=== PATIENT | male | born 1970 | race American Indian/Alaskan Native ===

== ENCOUNTER 2017-02-27 02:01 | Emergency (ER) | payer SELFPAY ==
[2017-02-27 02:10] VITALS: BP 125/66
[2017-02-27] MEDS ORDERED: Cyclobenzaprine 10 MG Tab PO ONE ×2 (02:40→04:21)
[2017-02-27] MEDS ORDERED: Acetaminophen/oxyCODONE 325-5 MG Tab PO ONE (02:40)
--- NOTE | 2017-02-27 03:39 | EDM.PDOC ---
ED HPI GENERAL MEDICAL PROBLEM - General Chief Complaint: Back Pain or Injury Stated Complaint: PULLED BACK Time Seen by Provider: 02/27/17 02:30 Source of Information: Reports: Patient History Limitations: Reports: No Limitations - History of Present Illness INITIAL COMMENTS - FREE TEXT/NARRATIVE: c/o severe low back pain after lifting 100# table around 8pm, felt something pop in lower back and noted swollen area on left lower back above waist line. No numbness or tingling, no incontinence. Pain moderate 4-5/10 at rest 10 with movement. Arrival ambulatory supported by family member. No prior back issues. Onset: Today - Related Data Allergies Allergy/AdvReac Type Severity Reaction Status Date / Time Penicillins Allergy Shortness Verified 02/27/17 02:06 of Breath pseudoephedrine Allergy Swelling Verified 02/27/17 02:06 insulin detemir AdvReac Nausea Verified 02/27/17 02:06 [From Levemir] Home Meds: Home Meds Aspirin 81 mg PO DAILY 05/06/14 [History] Insulin Aspart [Novolog Flexpen] 38 units SQ TIDAC 05/06/14 [History] Insulin Glarg,Human.Rec.Analog [Lantus Solostar] 64 units SQ DAILY 05/06/14 [ History] metFORMIN [Glucophage] 1,000 mg PO BIDMEALS 05/06/14 [History] Fluticasone Propionate [Flonase] 1 spray NASBOTH ASDIRECTED PRN 06/08/14 [ History] Lisinopril [Prinivil] 20 mg PO DAILY 06/08/14 [History] Nitroglycerin 1 tab SL ASDIRECTED PRN 06/08/14 [History] Simvastatin [Zocor] 40 mg PO BEDTIME 06/08/14 [History] Levalbuterol Tartrate [Xopenex HFA] 2 puff INH ASDIRECTED PRN 01/15/15 [History] Hydrocortisone Acetate [Anusol-Hc] 1 supp RECTAL BID PRN 01/11/16 [History] Ipratropium [Atrovent] 1 vial INH Q4H PRN 01/11/16 [History] LORazepam [Ativan] 0.5 mg PO ASDIRECTED 01/11/16 [History] Montelukast Sodium [Singulair] 10 mg PO DAILY 01/11/16 [History] Multivitamin with Minerals [Multiple Vitamin] 1 tab PO DAILY 01/11/16 [History] Pantoprazole [Protonix] 40 mg PO DAILY 01/11/16 [History] Sildenafil Citrate [Viagra] 50 mg PO ASDIRECTED 01/11/16 [History] Albuterol/Ipratropium [Combivent Respimat] 1 puff INH DAILY 01/13/16 [History] Past Medical History - Past Health History Medical/Surgical History: Denies Medical/Surgical History HEENT History: Reports: Impaired Vision, Other (See Below) Other HEENT History: WEARS CORRECTIVE LENSES Cardiovascular History: Reports: CAD, Hypertension, [place] Respiratory History: Reports: Asthma Other Respiratory History: PFT COMPLETED Gastrointestinal History: Reports: GI Bleed Genitourinary History: Reports: None Musculoskeletal History: Reports: None Other Musculoskeletal History: RIGHT CLAVICLE Neurological History: Reports: None, Other (See Below) Other Neuro History: TRIGEMINAL NEURALGIA Psychiatric History: Reports: Anxiety Endocrine/Metabolic History: Reports: Diabetes, Type II Hematologic History: Reports: Iron Deficiency Immunologic History: Reports: None Oncologic (Cancer) History: Reports: None Dermatologic History: Reports: None - Infectious Disease History Infectious Disease History: Reports: Chicken Pox, MRSA Other Infectious Disease History: ROTO VIRUS - Past Surgical History Head Surgeries/Procedures: Reports: None HEENT Surgical History: Reports: Myringotomy w Tube(s), Tonsillectomy Respiratory Surgical History: Reports: None Male Surgical History: Reports: None Musculoskeletal Surgical History: Reports: Arthroscopic Knee, Shoulder Surgery, Other (See Below) Other Musculoskeletal Surgeries/Procedures:: Torn ACL Oncologic Surgical History: Reports: None Dermatological Surgical History: Reports: None Social & Family History - Tobacco Use Smoking Status *Q: Never Smoker Years of Tobacco use: 1 Second Hand Smoke Exposure: Yes - Alcohol Use Days Per Week of Alcohol Use: 0 - Recreational Drug Use Recreational Drug Use: No Drug Use in Last 12 Months: No - Living Situation & Occupation Living situation: Reports: with Family Occupation: Employed ED ROS GENERAL - Review of Systems Review Of Systems: ROS reveals no pertinent complaints other than HPI. ED EXAM,LOWER BACK PAIN/INJURY - Physical Exam Exam: See Below Exam Limited By: No Limitations General Appearance: Alert, Moderate Distress Ears: Normal External Exam Nose: Normal Inspection Throat/Mouth: Normal Inspection Head: Atraumatic, Normocephalic Neck: Normal Inspection Respiratory/Chest: No Respiratory Distress, Lungs Clear Cardiovascular: Regular Rate, Rhythm GI/Abdominal: Soft Extremities: No: Leg Pain Neurological: Alert, Normal Mood/Affect, Withdraws to Pain. No: Normal Plantar Flexion (pain left), Normal Gait, Straight Leg Raise (L), Saddle Anesthesia Psychiatric: Normal Affect Skin Exam: Warm, Dry, Intact, Ecchymosis (5cm slightly raised circluar area low lumbar lateral to spine greenish disoloration to distal border, mild redness no warmth. ) Course - Vital Signs Last Recorded V/S: Last Vital Signs Temp 98.1 F 02/27/17 02:06 Pulse 69 02/27/17 02:06 Resp 16 02/27/17 02:06 BP 125/66 02/27/17 02:06 Pulse Ox 96 02/27/17 02:06 - Orders/Labs/Meds Orders: Active Orders 24 hr Category Date Time Status Lumbar Spine wo Cont [CT] Urgent Exams 02/27/17 03:13 Taken Meds: Medications Discontinued Medications Generic Name Dose Route Start Last Admin Trade Name Freq PRN Reason Stop Dose Admin Cyclobenzaprine HCl 10 mg 02/27/17 02:40 02/27/17 02:50 Flexeril PO 02/27/17 02:41 10 mg ONETIME ONE Administration Oxycodone/Acetaminophen 1 tab 02/27/17 02:40 02/27/17 02:50 Percocet 325-5 Mg PO 02/27/17 02:41 1 tab ONETIME ONE Administration - Radiology Interpretation Free Text/Narrative:: Multilevel degenerative disc disease L3-S1 no acute fracture or dislocation - Re-Assessments/Exams Free Text/Narrative Re-Assessment/Exam: 02/27/17 03:39 pain improved at rest decreased to 8/10 with movement. Able to stand independently movments guarded. 02/27/17 04:26 CT results reviewed with patient. Pain slightly improved not completely resolved but tolerable. Departure - Departure Time of Disposition: 04:27 Disposition: Home, Self-Care 01 Condition: Fair Clinical Impression: Back pain Qualifiers: Back pain location: low back pain Chronicity: acute Back pain laterality: left Sciatica presence: without sciatica Qualified Code(s): M54.5 - Low back pain - Discharge Information Instructions: Back Pain, Adult, [id number] Forms: ED Department Discharge Additional Instructions: rest flexeril 10mg every 8 hours as needed for muscle spasm hydrocodone 10/325 oen every 6 hours as needed for pain #10 Ibuprofen 600mg or tylenol 650mg every 6 hours as needed for mild to moderate pain ice to low back follow up in clinic or Saturday with PCP> - My Orders Last 24 Hours: My Active Orders 02/27/17 03:13 Lumbar Spine wo Cont [CT] Urgent - Assessment/Plan Last 24 Hours: My Active Orders 02/27/17 03:13 Lumbar Spine wo Cont [CT] Urgent
[2017-02-27] MEDS ORDERED: Acetaminophen/HYDROcodone 325-10 MG Tab ONE (04:21)
[2017-02-27] MEDS ORDERED: Acetaminophen/HYDROcodone 325-10 MG Tab PO ONE (04:21)
[2017-02-27] MEDS ORDERED: Cyclobenzaprine 10 MG Tab ONE (04:21)
== END 2017-02-27 04:33 | disposition home or self-care (01) ==
LOC: DL.ED 02:01
DX: M54.5 Low back pain (principal); H54.7 Unspecified visual loss; I25.10 Atherosclerotic heart disease of native coronary artery without angina pectoris; I25.2 Old myocardial infarction; J45.909 Unspecified asthma, uncomplicated; I10 Essential (primary) hypertension; E11.9 Type 2 diabetes mellitus without complications; Z79.4 Long term (current) use of insulin; Z96.22 Myringotomy tube(s) status; Z88.0 Allergy status to penicillin; Z88.8 Allergy status to other drugs, medicaments and biological substances; Z79.82 Long term (current) use of aspirin; Z79.84 Long term (current) use of oral hypoglycemic drugs; Z98.890 Other specified postprocedural states
CPT/HCPCS: 72131; 99283; A9270

== ENCOUNTER 2017-07-09 21:16 | Emergency (ER) | payer MEDICAID, OTHER ==
[2017-07-09 21:23] VITALS: BP 125/75
[2017-07-09] MEDS ORDERED: Azithromycin 250 MG Tab PO ONE (22:09)
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
== END 2017-07-09 22:21 | disposition home or self-care (01) ==
LOC: DL.ED 21:16
DX: J40 Bronchitis, not specified as acute or chronic (principal); Z79.82 Long term (current) use of aspirin; Z79.84 Long term (current) use of oral hypoglycemic drugs; Z79.899 Other long term (current) drug therapy; Z88.0 Allergy status to penicillin
CPT/HCPCS: 99284; A9270

== ENCOUNTER 2017-10-31 23:01 | Emergency (ER) | payer MEDICAID, OTHER ==
[2017-10-31] MEDS ORDERED: Doxycycline 100 MG Cap PO ONE (23:24)
[2017-10-31] MEDS ORDERED: predniSONE 20 MG Tab PO ONE (23:24)
[2017-10-31] MEDS ORDERED: Albuterol/Ipratropium 3.0-0.5 MG/3 ML Neb Soln NEB ONE (23:28)
--- NOTE | 2017-10-31 23:49 | EDM.PDOC ---
ED HPI GENERAL MEDICAL PROBLEM - General Chief Complaint: Respiratory Problem Stated Complaint: BRONCHITIS [id number] Time Seen by Provider: 10/31/17 23:20 Source of Information: Reports: Patient History Limitations: Reports: No Limitations - History of Present Illness INITIAL COMMENTS - FREE TEXT/NARRATIVE: C/O cough ,congestion for one week, has had bronchitis number of times and feels the same. Wheezing. Has nebulizer at home. 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 Left Ear Pain Score (Numeric/FACES): 3 - Related Data Allergies Allergy/AdvReac Type Severity Reaction Status Date / Time Penicillins Allergy Shortness Verified 10/31/17 23:14 of Breath pseudoephedrine Allergy Swelling Verified 10/31/17 23:14 insulin detemir AdvReac Nausea Verified 10/31/17 23:14 [From Levemir] Home Meds: Home Meds Aspirin 81 mg PO DAILY 05/06/14 [History] Insulin Aspart [Novolog Flexpen] 38 units SQ TIDAC 05/06/14 [History] Insulin Glarg,Human.Rec.Analog [Lantus Solostar] 64 units SQ DAILY 05/06/14 [ History] metFORMIN [Glucophage] 500 mg PO BIDMEALS 05/06/14 [History] Fluticasone Propionate [Flonase] 1 spray NASBOTH DAILY 06/08/14 [History] Lisinopril [Prinivil] 20 mg PO DAILY 06/08/14 [History] Nitroglycerin 1 tab SL ASDIRECTED PRN 06/08/14 [History] Simvastatin [Zocor] 40 mg PO BEDTIME 06/08/14 [History] Levalbuterol Tartrate [Xopenex HFA] 2 puff INH ASDIRECTED PRN 01/15/15 [History] Hydrocortisone Acetate [Anusol-Hc] 1 supp RECTAL BID PRN 01/11/16 [History] Ipratropium [Atrovent] 1 vial INH Q4H PRN 01/11/16 [History] LORazepam [Ativan] 0.5 mg PO ASDIRECTED 01/11/16 [History] Montelukast Sodium [Singulair] 10 mg PO DAILY 01/11/16 [History] Multivitamin with Minerals [Multiple Vitamin] 1 tab PO DAILY 01/11/16 [History] Pantoprazole [Protonix] 40 mg PO DAILY 01/11/16 [History] Albuterol/Ipratropium [Combivent Respimat] 1 puff INH DAILY 01/13/16 [History] Past Medical History - Past Health History Medical/Surgical History: Denies Medical/Surgical History HEENT History: Reports: Impaired Vision, Other (See Below) Other HEENT History: WEARS CORRECTIVE LENSES Cardiovascular History: Reports: CAD, Hypertension, [place] Respiratory History: Reports: Asthma Other Respiratory History: PFT COMPLETED Gastrointestinal History: Reports: GI Bleed, Hemorrhoids Genitourinary History: Reports: None Musculoskeletal History: Reports: None Other Musculoskeletal History: RIGHT CLAVICLE Neurological History: Reports: Other (See Below) Other Neuro History: TRIGEMINAL NEURALGIA Psychiatric History: Reports: Anxiety Endocrine/Metabolic History: Reports: Diabetes, Type II Hematologic History: Reports: Iron Deficiency Immunologic History: Reports: None Oncologic (Cancer) History: Reports: None Dermatologic History: Reports: None - Infectious Disease History Infectious Disease History: Reports: Chicken Pox, MRSA Other Infectious Disease History: ROTO VIRUS - Past Surgical History Head Surgeries/Procedures: Reports: None HEENT Surgical History: Reports: Myringotomy w Tube(s), Tonsillectomy Respiratory Surgical History: Reports: None Male Surgical History: Reports: None Musculoskeletal Surgical History: Reports: Arthroscopic Knee, Shoulder Surgery, Other (See Below) Other Musculoskeletal Surgeries/Procedures:: Torn ACL Oncologic Surgical History: Reports: None Dermatological Surgical History: Reports: None Social & Family History - Tobacco Use Smoking Status *Q: Never Smoker Years of Tobacco use: 1 Second Hand Smoke Exposure: No - Caffeine Use Caffeine Use: Reports: Soda - Alcohol Use Days Per Week of Alcohol Use: 0 - Recreational Drug Use Recreational Drug Use: No Drug Use in Last 12 Months: No - Living Situation & Occupation Living situation: Reports: with Family Occupation: Employed ED ROS GENERAL - Review of Systems Review Of Systems: See Below Constitutional: Reports: Fever HEENT: Reports: Sinus Problem Respiratory: Reports: Shortness of Breath, Wheezing, Cough, Sputum Cardiovascular: Reports: No Symptoms Endocrine: Reports: High Glucose GI/Abdominal: Reports: No Symptoms : Reports: No Symptoms Musculoskeletal: Reports: No Symptoms Skin: Reports: No Symptoms Neurological: Reports: No Symptoms ED EXAM, GENERAL - Physical Exam Exam: See Below Exam Limited By: No Limitations General Appearance: Alert, Mild Distress Eye Exam: Bilateral Eye: EOMI Ears: Normal External Exam Nose: Normal Inspection, Nasal Drainage (yellow) Throat/Mouth: Normal Inspection Head: Atraumatic, Normocephalic Neck: Normal Inspection Respiratory/Chest: No Respiratory Distress (wheezing bilateral anterior posterior) Cardiovascular: Normal Peripheral Pulses, Regular Rate, Rhythm GI/Abdominal: Normal Bowel Sounds Neurological: Alert, Oriented Skin Exam: Warm, Dry, Intact, Normal Color Course - Vital Signs Last Recorded V/S: Last Vital Signs Temp 98.6 F 10/31/17 23:07 Pulse 85 10/31/17 23:57 Resp 16 10/31/17 23:57 BP 133/64 10/31/17 23:57 Pulse Ox 95 10/31/17 23:57 - Orders/Labs/Meds Meds: Medications Discontinued Medications Generic Name Dose Route Start Last Admin Trade Name Valerio PRN Reason Stop Dose Admin Albuterol/Ipratropium 3 ml 10/31/17 23:28 10/31/17 23:33 Duoneb 3.0-0.5 Mg/3 Ml NEB 10/31/17 23:29 3 ml ONETIME ONE Administration Doxycycline Hyclate 100 mg 10/31/17 23:24 10/31/17 23:32 Vibramycin PO 10/31/17 23:25 100 mg ONETIME ONE Administration Prednisone 40 mg 10/31/17 23:24 10/31/17 23:32 Prednisone PO 10/31/17 23:25 40 mg ONETIME ONE Administration - Radiology Interpretation Free Text/Narrative:: CXR no acute findings - Re-Assessments/Exams Free Text/Narrative Re-Assessment/Exam: 11/04/17 06:07 Improved exchange following nebulizer treatment. Departure - Departure Time of Disposition: 23:49 Disposition: Home, Self-Care 01 Condition: Good Clinical Impression: Bronchitis Sinusitis Qualifiers: Sinusitis location: frontal Chronicity: acute Recurrence: non-recurrent Qualified Code(s): J01.10 - Acute frontal sinusitis, unspecified - Discharge Information Instructions: Acute Bronchitis, Adult Forms: ED Department Discharge Additional Instructions: doxycycline 100mg one twice daily for 10 days prednisone 20mg 3 daily for 3 days 2 daily for 5 days 1 daily for 5 days then 1/2 daily for 5 days Continue home nebulizer treatments follow up if not improving monitor blood sugars while on prednisone and adjust insulin per sliding scale
[2017-10-31 23:58] VITALS: BP 133/64
== END 2017-11-01 | disposition home or self-care (01) ==
LOC: DL.ED 23:01
DX: J40 Bronchitis, not specified as acute or chronic (principal); J01.10 Acute frontal sinusitis, unspecified; I10 Essential (primary) hypertension; E11.9 Type 2 diabetes mellitus without complications; Z88.0 Allergy status to penicillin; Z88.8 Allergy status to other drugs, medicaments and biological substances; Z79.82 Long term (current) use of aspirin; Z79.4 Long term (current) use of insulin
CPT/HCPCS: 71046; 99285; A9270

== ENCOUNTER 2018-01-22 07:41 | Day surgery (SDC) | payer OTHER ==
[~2018-01-22 07:41] MED LIST: Midazolam 1 MG/ML 2 ML SDV ONE; fentaNYL 100 MCG/2 ML SDV ONE
[2018-01-22] MEDS ORDERED: fentaNYL 100 MCG/2 ML SDV IV ONE ×3 (07:42→08:22)
[2018-01-22] MEDS ORDERED: Midazolam 1 MG/ML 2 ML SDV IV ONE ×7 (07:42→08:31)
[2018-01-22] MEDS ORDERED: Dextrose 5%-0.45% NaCl 1,000 ML IV SCH (08:23)
--- NOTE | 2018-01-22 09:28 | OR ---
DATE: 01/22/2018 PROCEDURE: Total colonoscopy. INSTRUMENT USED: PCF-H180 AL Olympus video colonoscope, Olympus distal detachment device. PREMEDICATIONS: Fentanyl 100 mcg intravenous, Versed 4 mg intravenous. Nasal O2 cannula. The procedure was done under pulse oximetry, BP recording, and monitor and storage bin tender. INDICATION: The patient with Hemoccult positive stools and previous iron- deficiency anemia. Colonoscopic examination is done for detection of any polypoid lesions and removal, endoscopic hemostasis therapy if needed. DESCRIPTION OF PROCEDURE: Initial rectal exam was unremarkable. Rigid anoscopy showed small internal hemorrhoids without bleeding from them. The colonoscope was passed with ease. Scattered diverticula were noted in the colon, more so in the distal left colon along with some deformity. The scope was passed with ease up to the ileocecal area. Photographs were taken of the cecum identified by appendiceal orifice and double-bulged ileocecal folds. No bleeding was noted from any of the visualized areas at the commencement of examination. There was moderate amount of fecal material, more solid fecal material especially in the right colon. Inadequate exam due to the presence of the stools. No stricture. No vascular ectasia. No large isolated ulcerations seen. No evidence of diffuse inflammatory bowel disease in the form of friability, contact bleeding, or ulcerations. No polyp or tumor mass identified. Probing the proximal sides of folds and flexures, using adequate distention and clearing up the stool material, withdrawal of the scope was made. [id number] time over 6 minutes. No bleeding was noted from any of the visualized areas at the completion of examination. IMPRESSION: 1. Internal hemorrhoids. 2. Diverticulosis. The patient tolerated the procedure well. [facility] /[id number]
--- NOTE | 2018-01-22 10:04 | LETTER ---
01/22/2018 Julian Davis MD [facility] [address] [place] [address] RE: ENIO TREVOR DINO : [address] Davis: Mr. Trevor Rhoades had colonoscopic examination this morning and he tolerated the procedure well. The examination was incomplete due to the presence of large amount of fecal material, and this study has to be rescheduled later with 2-day bowel preparation. He did not take the bowel preparation in entirety as recommended. I herewith send a copy of the endoscopy note and photographs for your review. He has had Hemoccult-positive stools and previous iron-deficiency anemia without any bleeding areas noted by colonoscopic exam. He is scheduled for EGD next week. Thank you, Sincerely, [facility] /[id number]
[2018-01-22 11:36] VITALS: BP 114/66
== END 2018-01-22 10:45 | disposition home or self-care (01) ==
LOC: DL.ENDO 07:41
PROVIDERS: ATTEND Internal Medicine Gastroenterology
DX: R19.5 Other fecal abnormalities (principal); K57.30 Diverticulosis of large intestine without perforation or abscess without bleeding; K64.8 Other hemorrhoids; D50.9 Iron deficiency anemia, unspecified; E66.9 Obesity, unspecified; E11.9 Type 2 diabetes mellitus without complications; I10 Essential (primary) hypertension; G47.33 Obstructive sleep apnea (adult) (pediatric); J30.9 Allergic rhinitis, unspecified; Z88.0 Allergy status to penicillin; Z88.8 Allergy status to other drugs, medicaments and biological substances; Z90.89 Acquired absence of other organs; Z98.890 Other specified postprocedural states
CPT/HCPCS: 45378; J2250; J3010; J7042

== ENCOUNTER 2018-01-27 07:13 | Day surgery (SDC) | payer OTHER ==
[~2018-01-27 07:13] MED LIST changes: +Dextrose 5%-0.45% NaCl 1,000 ML IV SCH; +Sodium Chloride 0.9% 10 ML Syringe FLUSH PRN
[2018-01-27] MEDS ORDERED: fentaNYL 100 MCG/2 ML SDV IV ONE ×3 (07:14→07:59)
[2018-01-27] MEDS ORDERED: Midazolam 1 MG/ML 2 ML SDV IV ONE ×3 (07:14→08:00)
--- NOTE | 2018-01-27 09:50 | OR ---
DATE: 01/27/2018 PROCEDURE PERFORMED: Esophagogastroduodenoscopy and multiple pinch biopsies. INSTRUMENT USED: GIF-Q180 Olympus video panendoscope. PREMEDICATIONS: No oral topical anesthesia used. Fentanyl 100 mcg intravenous and Versed 2 mg intravenous. Nasal 2 L O2 cannula. The procedure was done under pulse oximetry, BP recording, and phototypesetting equipment monitor. INDICATION: The patient with Hemoccult-positive stools and negative colonoscopic examination for bleeding area, status post iron deficiency anemia, on long-term low-dose aspirin. Esophagogastroduodenoscopy is performed for detection of any active erosive lesions, Ruelas esophagus and/or malignancy also under consideration, H. pylori status to be determined, endoscopic hemostasis therapy if needed. DESCRIPTION OF PROCEDURE: The scope was passed with ease. Adequate visualization of the esophagus was made from proximal to distal areas. No upper esophageal lesions identified. No distal esophageal stricture. No uphill or downhill esophageal varices. No Nicole-Taylor tear. No evidence of erosive esophagitis by [place] criteria. No esophageal polyp or tumor mass identified. Z-line was seen at around 40 cm distal to the oral verge, configuration consistent with grade 1 by ZAP classification. No proximal gastric varices noted. Gastric fundus examination by retroflexion showed no polypoid lesions. No gastric ulcer, malignant mass, or vascular ectasia identified. Duodenal bulb showed no ulcer. Visualized second part of the duodenum was unremarkable. Multiple pinch biopsies were taken from the gastric antrum and proximal body and sent for PyloriTek test for H. pylori, and if negative in an hour, the tissue was to be sent for histopathology. No bleeding was noted from any of the visualized areas at the completion of the examination. Photographs were taken of the duodenal bulb, gastric antrum and fundus, and distal esophagus. IMPRESSION: Normal study. The patient tolerated the procedure well. [facility] /[id number]
[2018-01-27 09:56] VITALS: BP 141/67
--- NOTE | 2018-01-27 13:20 | LETTER ---
01/27/2018 Julian Davis MD [facility] [address] [place] [address] RE: TREVOR STEEN DINO : [address] Davis: Mr. Trevor Thomas Jf had esophagogastroduodenoscopy done this morning and he tolerated the procedure well. I herewith send a copy of the endoscopy note and photographs for your review. Thank you. Sincerely, [facility] /[id number]
== END 2018-01-27 10:00 | disposition home or self-care (01) ==
LOC: DL.ENDO 07:13
PROVIDERS: ATTEND Internal Medicine Gastroenterology
DX: K29.50 Unspecified chronic gastritis without bleeding (principal); R19.5 Other fecal abnormalities; E11.9 Type 2 diabetes mellitus without complications; I10 Essential (primary) hypertension; E66.09 Other obesity due to excess calories; G47.33 Obstructive sleep apnea (adult) (pediatric); F32.9 Major depressive disorder, single episode, unspecified; Z79.82 Long term (current) use of aspirin; Z88.0 Allergy status to penicillin; Z88.8 Allergy status to other drugs, medicaments and biological substances; Z79.4 Long term (current) use of insulin
CPT/HCPCS: 43239; 87077; J2250; J3010; J7042

== ENCOUNTER 2018-02-06 11:37 | Emergency (ER) | payer OTHER ==
[2018-02-06 11:45] VITALS: BP 155/78
[2018-02-06] MEDS ORDERED: Sodium Chloride 0.9% 1,000 ML IV ONE (12:27)
[2018-02-06] MEDS ORDERED: Ketorolac 30 MG/ML SDV IVPUSH ONE (12:27)
[2018-02-06] MEDS ORDERED: Promethazine 25 MG/ML SDV IM ONE (12:27)
--- NOTE | 2018-02-06 12:46 | EDM.PDOC ---
ED HPI GENERAL MEDICAL PROBLEM - General Chief Complaint: Headache Stated Complaint: MIGRAIN, TROUBLE BREATHING Time Seen by Provider: 02/06/18 12:30 Source of Information: Reports: Patient History Limitations: Reports: No Limitations - History of Present Illness INITIAL COMMENTS - FREE TEXT/NARRATIVE: This 47 yo male patient reports to the ED with a headache, cough and shortness of breath. The patient reports that he has a migraine headache with a history of migraines. The patient also reports that he has a cough and has been feeling ill. The patient reports most of his symptoms started this morning and his symptoms have been getting worse. The patient reports that he was exposed to another individual with a cough over the past couple of days. The patient reports that he took 2 ibuprofen with no headache relief. 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 Headache Pain Score (Numeric/FACES): 6 - Related Data Allergies Allergy/AdvReac Type Severity Reaction Status Date / Time insulin detemir Allergy Anaphylactic Verified 01/27/18 07:30 [From Levemir] Shock Penicillins Allergy Shortness Verified 01/27/18 07:30 of Breath pseudoephedrine Allergy Swelling Verified 01/27/18 07:30 Home Meds: Home Meds Aspirin 81 mg PO DAILY 05/06/14 [History] Insulin Aspart [Novolog Flexpen] 38 units SQ TIDAC 05/06/14 [History] Insulin Glarg,Human.Rec.Analog [Lantus Solostar] 64 units SQ DAILY 05/06/14 [ History] metFORMIN [Glucophage] 500 mg PO DAILY 05/06/14 [History] Fluticasone Propionate [Flonase] 1 spray NASBOTH DAILY 06/08/14 [History] Lisinopril [Prinivil] 20 mg PO DAILY 06/08/14 [History] Nitroglycerin 1 tab SL ASDIRECTED PRN 06/08/14 [History] Simvastatin [Zocor] 40 mg PO BEDTIME 06/08/14 [History] Hydrocortisone Acetate [Anusol-Hc] 1 supp RECTAL BID PRN 01/11/16 [History] Ipratropium [Atrovent] 1 vial INH Q4H PRN 01/11/16 [History] LORazepam [Ativan] 0.5 mg PO ASDIRECTED 01/11/16 [History] Montelukast Sodium [Singulair] 10 mg PO DAILY 01/11/16 [History] Multivitamin with Minerals [Multiple Vitamin] 1 tab PO DAILY 01/11/16 [History] Pantoprazole [Protonix] 40 mg PO DAILY 01/11/16 [History] Beclomethasone Dipropionate [Qvar 40 Mcg] 1 puff INH ASDIRECTED 01/21/18 [ History] Clobetasol [Clobetasol 0.05%] 1 applic TOP ASDIRECTED PRN 01/21/18 [History] Levalbuterol HCl [Xopenex] 1 vial INH ASDIRECTED PRN 01/21/18 [History] Saxagliptin HCl [Onglyza] 2.5 mg PO DAILY 01/21/18 [History] Past Medical History - Past Health History Medical/Surgical History: Denies Medical/Surgical History HEENT History: Reports: Allergic Rhinitis, Impaired Vision, Other (See Below) Other HEENT History: WEARS CORRECTIVE LENSES Cardiovascular History: Reports: CAD, High Cholesterol, Hypertension, [place] Respiratory History: Reports: Asthma, Sleep Apnea Other Respiratory History: PFT COMPLETED Gastrointestinal History: Reports: GI Bleed, Hemorrhoids Genitourinary History: Reports: None Musculoskeletal History: Reports: None Other Musculoskeletal History: RIGHT CLAVICLE Neurological History: Reports: Other (See Below) Other Neuro History: TRIGEMINAL NEURALGIA Psychiatric History: Reports: Anxiety, Depression Endocrine/Metabolic History: Reports: Diabetes, Type II, Obesity/BMI 30+ Hematologic History: Reports: Iron Deficiency Immunologic History: Reports: None Oncologic (Cancer) History: Reports: None Dermatologic History: Reports: Eczema - Infectious Disease History Infectious Disease History: Reports: Chicken Pox, MRSA Other Infectious Disease History: ROTO VIRUS ; MRSA TO ELBOW - Past Surgical History Head Surgeries/Procedures: Reports: None HEENT Surgical History: Reports: Myringotomy w Tube(s), Tonsillectomy Cardiovascular Surgical History: Reports: Other (See Below) Other Cardiovascular Surgeries/Procedures: angiogram Respiratory Surgical History: Reports: None GI Surgical History: Reports: Colonoscopy, EGD Male Surgical History: Reports: None Endocrine Surgical History: Reports: None Neurological Surgical History: Reports: None Musculoskeletal Surgical History: Reports: Arthroscopic Knee, Shoulder Surgery, Other (See Below) Other Musculoskeletal Surgeries/Procedures:: Torn ACL Oncologic Surgical History: Reports: None Dermatological Surgical History: Reports: None Social & Family History - Family History Family Medical History: Noncontributory - Tobacco Use Smoking Status *Q: Never Smoker Second Hand Smoke Exposure: No - Caffeine Use Caffeine Use: Reports: Soda Other Caffeine Use: occassional coffee - Recreational Drug Use Recreational Drug Use: No - Living Situation & Occupation Living situation: Reports: with Family Occupation: Employed ED ROS GENERAL - Review of Systems Review Of Systems: ROS reveals no pertinent complaints other than HPI. - Physical Exam Exam: See Below Exam Limited By: No Limitations General Appearance: Alert, WD/WN, Moderate Distress, Obese Eye Exam: Bilateral Eye: EOMI, Normal Inspection, PERRL Ears: Normal External Exam, Normal Canal, Hearing Grossly Normal, Normal TMs Nose: Normal Inspection, Normal Mucosa, No Blood Throat/Mouth: Normal Inspection, Normal Lips, Normal Teeth, Normal Gums, Normal Oropharynx, Normal Voice, No Airway Compromise Head Exam: Atraumatic, Normocephalic Neck: Normal Inspection, Supple, Non-Tender, Full Range of Motion Respiratory/Chest: Decreased Breath Sounds, Rhonchi (right lower lobe) Cardiovascular: Normal Peripheral Pulses, Regular Rate, Rhythm, No Edema, No Gallop, No JVD, No Murmur, No Rub GI/Abdominal: Normal Bowel Sounds, Soft, Non-Tender, No Organomegaly, No Distention, No Abnormal Bruit, No Mass, Other (obese) (Male) Exam: Deferred Rectal (Males) Exam: Deferred Neuro Exam (Abbreviated): Alert, Oriented, CN II-XII Intact, Normal Cognition, Normal Gait, Normal Reflexes, No Motor/Sensory Deficits Back Exam: Normal Inspection, Full Range of Motion, NT Extremities: Normal Inspection, Normal Range of Motion, Non-Tender, No Pedal Edema, Normal Capillary Refill Psychiatric: Normal Affect, Normal Mood Skin Exam: Warm, Dry, Intact, Normal Color, No Rash Course - Vital Signs Last Recorded V/S: Last Vital Signs Temp 36.3 C 02/06/18 11:43 Pulse 74 02/06/18 11:43 Resp 14 02/06/18 11:43 BP 155/78 H 02/06/18 11:43 Pulse Ox 94 L 02/06/18 11:43 - Orders/Labs/Meds Orders: Active Orders 24 hr Category Date Time Status Sodium Chloride 0.9% [Normal Saline] 1,000 ml Med 02/06/18 12:27 Ordered IV .BOLUS Medication Orders Sodium Chloride (Normal Saline) 1,000 mls @ 999 mls/hr IV .BOLUS ONE Stop: 02/06/18 13:27 Last Admin: 02/06/18 12:34 Dose: 999 mls/hr Labs: Laboratory Tests 02/06/18 02/06/18 Range/Units 12:30 12:30 WBC 9.3 (5.0-10.0) 10^3/uL RBC 4.99 (4.6-6.2) 10^6/uL Hgb 14.0 D (14.0-18.0) g/dL Hct 42.7 (40.0-54.0) % MCV 85.6 (80-100) fL MCH 28.1 (27.0-34.0) pg MCHC 32.8 L (33.0-35.0) g/dL Plt Count 264 (150-450) 10^3/uL Neut % (Auto) 73.3 (42.2-75.2) % Lymph % (Auto) 15.5 L (20.5-50.1) % Mccracken % (Auto) 8.6 H (2-8) % Eos % (Auto) 2.1 (1.0-3.0) % Baso % (Auto) 0.5 (0.0-1.0) % Sodium 136 (135-145) mmol/L Potassium 3.7 (3.6-5.0) mmol/L Chloride 104 (101-111) mmol/L Carbon Dioxide 26.0 (21.0-31.0) mmol/L Anion Gap 9.7 BUN 12 (7-18) mg/dL Creatinine 0.8 (0.6-1.3) mg/dL Est Cr Clr Drug Dosing 114.15 mL/min Estimated GFR (MDRD) > 60 BUN/Creatinine Ratio 15.00 Glucose 108 H (74-105) mg/dL Calcium 8.6 (8.4-10.2) mg/dl Total Bilirubin 0.4 (0.2-1.0) mg/dL AST 36 (10-42) IU/L ALT 43 (10-60) IU/L Alkaline Phosphatase 74 (42-121) IU/L Total Protein 7.1 (6.7-8.2) g/dl Albumin 3.5 (3.2-5.5) g/dl Globulin 3.6 Albumin/Globulin Ratio 0.97 Meds: Medications Generic Name Dose Route Start Last Admin Trade Name Freq PRN Reason Stop Dose Admin Sodium Chloride 1,000 mls @ 999 mls/hr 02/06/18 12:27 02/06/18 12:34 Normal Saline IV 02/06/18 13:27 999 mls/hr .BOLUS ONE Administration Discontinued Medications Generic Name Dose Route Start Last Admin Trade Name Freq PRN Reason Stop Dose Admin Ketorolac Tromethamine 30 mg 02/06/18 12:27 02/06/18 12:35 Toradol IVPUSH 02/06/18 12:28 30 mg ONETIME ONE Administration Promethazine HCl 25 mg 02/06/18 12:27 02/06/18 12:36 Phenergan IM 02/06/18 12:28 25 mg ONETIME ONE Administration Departure - Departure Time of Disposition: 13:21 Disposition: Home, Self-Care 01 Condition: Fair Clinical Impression: Bronchitis Migraine Qualifiers: Migraine type: unspecified Status migrainosus presence: without status migrainosus Intractability: intractable Qualified Code(s): G43.919 - Migraine, unspecified, intractable, without status migrainosus - Discharge Information Instructions: Migraine Headache, [id number], Upper Respiratory Infection, Adult, [id number] Forms: ED Department Discharge Care Plan Goals: The patient was advised of the examination, lab and x-ray results during the visit. The patient was given in injection of Phenergan, IV fluids and IV Toradol while in the ED. The patient was discharged with a script for Azithromycin (250 mg) to take 2 by mouth on day 1 and 1 by mouth on days 2-5. If the patient has any additional symptoms or concerns, the patient should follow-up with his primary care facility or return to the emergency department. - My Orders Last 24 Hours: My Active Orders 02/06/18 12:27 Sodium Chloride 0.9% [Normal Saline] 1,000 ml IV .BOLUS - Assessment/Plan Last 24 Hours: My Active Orders 02/06/18 12:27 Sodium Chloride 0.9% [Normal Saline] 1,000 ml IV .BOLUS
[2018-02-06 12:59] LABS: CHLORIDE,CL 104 mmol/L (101-111); SODIUM,NA 136 mmol/L (135-145)
--- NOTE | 2018-02-06 12:59 | CR ---
Clinical history: 47-year-old male shortness of breath. Interpretation: Normal cardiac silhouette and reasonable inspiratory effort, obese, male. Slight shaggy accentuation central lung markings but no appreciable peribronchial "cuffing", air trap ping, lung mass, focal lobar pneumonia or atelectasis/collapse. No pneumothorax. No alveolar edema or dependent pleural effusion. Old trauma distal right clavicle noted incidentally. CONCLUSION: Mild bronchitis. No signs of heart failure, lung mass or focal lobar pneumonia.
== END 2018-02-06 13:29 | disposition home or self-care (01) ==
LOC: DL.ED 11:37
DX: G43.919 Migraine, unspecified, intractable, without status migrainosus (principal); J40 Bronchitis, not specified as acute or chronic; I25.2 Old myocardial infarction; I10 Essential (primary) hypertension; E11.9 Type 2 diabetes mellitus without complications; E66.9 Obesity, unspecified; Z88.8 Allergy status to other drugs, medicaments and biological substances; Z88.0 Allergy status to penicillin; Z79.4 Long term (current) use of insulin
CPT/HCPCS: 36415; 71046; 80053; 85025; 96361; 96372; 96374; 99284; J1885; J2550; J7030

== ENCOUNTER 2018-05-25 21:45 | Emergency (ER) | payer OTHER ==
[2018-05-25 21:57] VITALS: BP 125/81
--- NOTE | 2018-05-25 23:58 | EDM.PDOC ---
ED HPI GENERAL MEDICAL PROBLEM - General Chief Complaint: Skin Complaint Stated Complaint: LEG INFECTION [id number] Time Seen by Provider: 05/25/18 23:53 Source of Information: Reports: Patient History Limitations: Reports: No Limitations - History of Present Illness INITIAL COMMENTS - FREE TEXT/NARRATIVE: sore to outside right knee. Hx MRSA No drainage no fever Right Lower Leg Pain Score (Numeric/FACES): 3 - Related Data Allergies Allergy/AdvReac Type Severity Reaction Status Date / Time insulin detemir Allergy Anaphylactic Verified 01/27/18 07:30 [From Levemir] Shock Penicillins Allergy Shortness Verified 01/27/18 07:30 of Breath pseudoephedrine Allergy Swelling Verified 01/27/18 07:30 Home Meds: Home Meds Aspirin 81 mg PO DAILY 05/06/14 [History] Insulin Aspart [Novolog Flexpen] 28 units SQ TIDAC 05/06/14 [History] Insulin Glarg,Human.Rec.Analog [Lantus Solostar] 64 units SQ BEDTIME 05/06/14 [ History] metFORMIN [Glucophage] 1,000 mg PO BID 05/06/14 [History] Fluticasone Propionate [Flonase] 1 spray NASBOTH DAILY 06/08/14 [History] Lisinopril [Prinivil] 20 mg PO DAILY 06/08/14 [History] Nitroglycerin 1 tab SL ASDIRECTED PRN 06/08/14 [History] Simvastatin [Zocor] 20 mg PO BEDTIME 06/08/14 [History] Hydrocortisone Acetate [Anusol-Hc] 1 supp RECTAL BID PRN 01/11/16 [History] Ipratropium [Atrovent] 1 vial INH Q4H PRN 01/11/16 [History] LORazepam [Ativan] 0.5 mg PO ASDIRECTED 01/11/16 [History] Montelukast Sodium [Singulair] 10 mg PO DAILY 01/11/16 [History] Multivitamin with Minerals [Multiple Vitamin] 1 tab PO DAILY 01/11/16 [History] Pantoprazole [Protonix] 40 mg PO DAILY 01/11/16 [History] Beclomethasone Dipropionate [Qvar 40 Mcg] 1 puff INH BID 01/21/18 [History] Clobetasol [Clobetasol 0.05%] 1 applic TOP ASDIRECTED PRN 01/21/18 [History] Levalbuterol HCl [Xopenex] 1 vial INH Q6H PRN 01/21/18 [History] Saxagliptin HCl [Onglyza] 2.5 mg PO DAILY 01/21/18 [History] Past Medical History - Past Health History Medical/Surgical History: Denies Medical/Surgical History HEENT History: Reports: Allergic Rhinitis, Impaired Vision, Other (See Below) Other HEENT History: WEARS CORRECTIVE LENSES Cardiovascular History: Reports: CAD, High Cholesterol, Hypertension, [place] Respiratory History: Reports: Asthma, Sleep Apnea Other Respiratory History: PFT COMPLETED Gastrointestinal History: Reports: GI Bleed, Hemorrhoids Genitourinary History: Reports: None Musculoskeletal History: Reports: None Other Musculoskeletal History: RIGHT CLAVICLE Neurological History: Reports: Other (See Below) Other Neuro History: TRIGEMINAL NEURALGIA Psychiatric History: Reports: Anxiety, Depression Endocrine/Metabolic History: Reports: Diabetes, Type II, Obesity/BMI 30+ Hematologic History: Reports: Iron Deficiency Immunologic History: Reports: None Oncologic (Cancer) History: Reports: None Dermatologic History: Reports: Eczema - Infectious Disease History Infectious Disease History: Reports: MRSA Other Infectious Disease History: ROTO VIRUS ; MRSA TO ELBOW - Past Surgical History Head Surgeries/Procedures: Reports: None HEENT Surgical History: Reports: Myringotomy w Tube(s), Tonsillectomy Respiratory Surgical History: Reports: None GI Surgical History: Reports: Colonoscopy, EGD Male Surgical History: Reports: None Endocrine Surgical History: Reports: None Neurological Surgical History: Reports: None Musculoskeletal Surgical History: Reports: Arthroscopic Knee, Shoulder Surgery, Other (See Below) Other Musculoskeletal Surgeries/Procedures:: Torn ACL Oncologic Surgical History: Reports: None Dermatological Surgical History: Reports: None Social & Family History - Family History Family Medical History: Noncontributory - Tobacco Use Smoking Status *Q: Never Smoker - Caffeine Use Caffeine Use: Reports: Soda Other Caffeine Use: occassional coffee - Recreational Drug Use Recreational Drug Use: No - Living Situation & Occupation Living situation: Reports: with Family Occupation: Employed ED ROS GENERAL - Review of Systems Review Of Systems: ROS reveals no pertinent complaints other than HPI. ED EXAM, SKIN/RASH Exam: See Below Exam Limited By: No Limitations General Appearance: Alert, No Apparent Distress Eye Exam: Bilateral Eye: EOMI Ears: Normal External Exam, Hearing Loss Throat/Mouth: Normal Inspection Head: Atraumatic, Normocephalic Neck: Full Range of Motion Respiratory/Chest: No Respiratory Distress, Lungs Clear Cardiovascular: Normal Peripheral Pulses, Regular Rate, Rhythm Extremities: Leg Pain (right lower) Neurological: Alert, Oriented, Normal Cognition Skin: Warm, Dry, Intact, Wound/Incision (nickel size red tender raised area right lower leg below knee firm punctate center appearance surrounding hair follicle. ) Associated features: Warmth, Tenderness, Inflammation Course - Vital Signs Last Recorded V/S: Last Vital Signs Temp 98.7 F 05/25/18 23:24 Pulse 101 H 05/25/18 21:53 Resp 16 05/25/18 21:53 BP 125/81 05/25/18 21:53 Pulse Ox 94 L 05/25/18 21:53 - Orders/Labs/Meds Meds: Medications Discontinued Medications Generic Name Dose Route Start Last Admin Trade Name Freq PRN Reason Stop Dose Admin Doxycycline Hyclate 100 mg 05/25/18 23:59 05/26/18 00:03 Vibramycin PO 05/26/18 00:00 100 mg ONETIME ONE Administration Departure - Departure Time of Disposition: 23:57 Disposition: Home, Self-Care 01 Condition: Good Clinical Impression: Hx MRSA infection Skin abscess Qualifiers: Site of cutaneous abscess: extremity Site of cutaneous abscess of extremity: lower extremity Laterality: right Qualified Code(s): L02.415 - Cutaneous abscess of right lower limb - Discharge Information *PRESCRIPTION DRUG MONITORING PROGRAM REVIEWED*: Not Applicable Instructions: Skin Abscess Referrals: PCP,None [Primary Care Provider] - Forms: ED Department Discharge Additional Instructions: doxycycline 100mg one twice daily for 7 days recheck if not improviing in one week tylenol or ibuprofen for discomfort keep area covered if draining
[2018-05-26] MEDS: Doxycycline 100 MG Cap PO ONE (00:03)
== END 2018-05-26 00:05 | disposition home or self-care (01) ==
LOC: DL.ED 21:45
DX: L02.415 Cutaneous abscess of right lower limb (principal); I10 Essential (primary) hypertension; E11.9 Type 2 diabetes mellitus without complications; J45.909 Unspecified asthma, uncomplicated; I25.2 Old myocardial infarction; Z88.0 Allergy status to penicillin; Z88.8 Allergy status to other drugs, medicaments and biological substances; Z79.82 Long term (current) use of aspirin; Z79.899 Other long term (current) drug therapy; Z86.14 Personal history of Methicillin resistant Staphylococcus aureus infection
CPT/HCPCS: 99283; A9270-GY

== ENCOUNTER 2018-09-30 15:22 | Emergency (ER) | payer OTHER ==
[2018-09-30 15:46] VITALS: BP 125/80
[2018-09-30] MEDS ORDERED: Albuterol/Ipratropium 3.0-0.5 MG/3 ML Neb Soln NEB ONE (16:10)
--- NOTE | 2018-09-30 16:24 | CR ---
Clinical history: 48-year-old male complaining of chest pain and shortness of breath. Interpretation: Negative exam. No new signs of heart failure, lung mass or lobar pneumonia when compared to 31 October or January, films. Normal cardiac silhouette without cephalization of flow, alveolar edema or dependent pleural effusion. No lung mass or hilar lymphadenopathy. No lobar pneumonia, atelectasis or collapse. No pneumothorax.
[2018-09-30 16:49] LABS: ANION GAP 15.1; CHLORIDE,CL 99 mmol/L (101-111); SODIUM,NA 132 mmol/L (135-145)
--- NOTE | 2018-09-30 17:04 | EDM.PDOC ---
ED HPI GENERAL MEDICAL PROBLEM - General Chief Complaint: Chest Pain Stated Complaint: BRONCHITIS Time Seen by Provider: 09/30/18 16:10 Source of Information: Reports: Patient History Limitations: Reports: No Limitations - History of Present Illness INITIAL COMMENTS - FREE TEXT/NARRATIVE: patient is emergency department today with complaints of tightness in his chest and shortness of breath. This is been going on for the past week or so.He was recently placed on some steroids as well as doxycycline and diagnosed with bronchitis. He stopped taking the doxycycline because he thought it made his shortness of breath worse. He did continue his steroids. He only took about 4-5 days of his doxycycline. He does have a history that he reports his asthma and really the early stages of COPD. Denies any fever or chills. No nausea or vomiting. No diarrhea. chest Pain Score (Numeric/FACES): 4 - Related Data Allergies Allergy/AdvReac Type Severity Reaction Status Date / Time insulin detemir Allergy Anaphylactic Verified 09/30/18 15:50 [From Levemir] Shock Penicillins Allergy Shortness Verified 09/30/18 15:50 of Breath pseudoephedrine Allergy Swelling Verified 09/30/18 15:50 Home Meds: Home Meds Aspirin 81 mg PO DAILY 05/06/14 [History] Insulin Aspart [Novolog Flexpen] 28 units SQ TIDAC 05/06/14 [History] Insulin Glarg,Human.Rec.Analog [Lantus Solostar] 64 units SQ BEDTIME 05/06/14 [ History] metFORMIN [Glucophage] 1,000 mg PO BID 05/06/14 [History] Fluticasone Propionate [Flonase] 1 spray NASBOTH DAILY 06/08/14 [History] Lisinopril [Prinivil] 20 mg PO DAILY 06/08/14 [History] Nitroglycerin 1 tab SL ASDIRECTED PRN 06/08/14 [History] Simvastatin [Zocor] 20 mg PO BEDTIME 06/08/14 [History] Hydrocortisone Acetate [Anusol-Hc] 1 supp RECTAL BID PRN 01/11/16 [History] Ipratropium [Atrovent] 1 vial INH Q4H PRN 01/11/16 [History] LORazepam [Ativan] 0.5 mg PO ASDIRECTED 01/11/16 [History] Montelukast Sodium [Singulair] 10 mg PO DAILY 01/11/16 [History] Multivitamin with Minerals [Multiple Vitamin] 1 tab PO DAILY 01/11/16 [History] Pantoprazole [Protonix] 40 mg PO DAILY 01/11/16 [History] Clobetasol [Clobetasol 0.05%] 1 applic TOP ASDIRECTED PRN 01/21/18 [History] Levalbuterol HCl [Xopenex] 1 vial INH Q6H PRN 01/21/18 [History] Saxagliptin HCl [Onglyza] 2.5 mg PO DAILY 01/21/18 [History] Arformoterol [Brovana] 1 puff INH BID #30 neb 09/30/18 [Rx] Budesonide [Pulmicort] 0.5 mg IH BID #30 ml 09/30/18 [Rx] Budesonide/Formoterol Fumarate [Symbicort 160-4.5 Mcg Inhaler] 2 puff IH DAILY 09/30/18 [History] Past Medical History - Past Health History Medical/Surgical History: Denies Medical/Surgical History HEENT History: Reports: Allergic Rhinitis, Impaired Vision, Other (See Below) Other HEENT History: WEARS CORRECTIVE LENSES Cardiovascular History: Reports: CAD, High Cholesterol, Hypertension, [place] Respiratory History: Reports: Asthma, Bronchitis, Recurrent, COPD, Sleep Apnea Other Respiratory History: PFT COMPLETED Gastrointestinal History: Reports: GI Bleed, Hemorrhoids Genitourinary History: Reports: None Musculoskeletal History: Reports: Fracture Other Musculoskeletal History: RIGHT CLAVICLE Neurological History: Reports: Other (See Below) Other Neuro History: TRIGEMINAL NEURALGIA Psychiatric History: Reports: Anxiety, Depression Endocrine/Metabolic History: Reports: Diabetes, Type II, Obesity/BMI 30+ Hematologic History: Reports: Iron Deficiency Immunologic History: Reports: None Oncologic (Cancer) History: Reports: None Dermatologic History: Reports: Eczema - Infectious Disease History Infectious Disease History: Reports: MRSA Other Infectious Disease History: ROTO VIRUS ; MRSA TO ELBOW - Past Surgical History Head Surgeries/Procedures: Reports: None HEENT Surgical History: Reports: Myringotomy w Tube(s), Tonsillectomy Respiratory Surgical History: Reports: None GI Surgical History: Reports: Colonoscopy, EGD Male Surgical History: Reports: None Endocrine Surgical History: Reports: None Neurological Surgical History: Reports: None Musculoskeletal Surgical History: Reports: Arthroscopic Knee, Shoulder Surgery, Other (See Below) Other Musculoskeletal Surgeries/Procedures:: Torn ACL Oncologic Surgical History: Reports: None Dermatological Surgical History: Reports: None Social & Family History - Family History Family Medical History: Noncontributory - Tobacco Use Smoking Status *Q: Never Smoker Second Hand Smoke Exposure: No - Caffeine Use Caffeine Use: Reports: Soda Other Caffeine Use: occassional coffee - Recreational Drug Use Recreational Drug Use: No - Living Situation & Occupation Living situation: Reports: with Family Occupation: Employed ED ROS GENERAL - Review of Systems Review Of Systems: ROS reveals no pertinent complaints other than HPI. ED EXAM, GENERAL - Physical Exam Exam: See Below Exam Limited By: Intoxication General Appearance: Alert, WD/WN, No Apparent Distress Head: Atraumatic, Normocephalic Neck: Normal Inspection, Supple Respiratory/Chest: No Respiratory Distress, No Accessory Muscle Use, Chest Non- Tender, Decreased Breath Sounds (throughout), Wheezing (inspiratory expiratory) . No: Crackles, Rales, Rhonchi Cardiovascular: Normal Peripheral Pulses, Regular Rate, Rhythm, No Murmur GI/Abdominal: Normal Bowel Sounds Back Exam: Normal Inspection, Full Range of Motion Extremities: Normal Inspection, Normal Range of Motion, No Pedal Edema, Normal Capillary Refill Neurological: Alert, Oriented, Normal Cognition, No Motor/Sensory Deficits Psychiatric: Normal Affect, Normal Mood Skin Exam: Warm, Dry, Intact, Normal Color, No Rash Lymphatic: No Adenopathy EKG INTERPRETATION EKG Date: 09/30/18 Time: 15:51 Rhythm: NSR Rate (Beats/Min): 79 [place]: Normal P-Wave: Present QRS: Normal ST-T: Normal QT: Normal Course - Vital Signs Last Recorded V/S: Last Vital Signs Temp 36.7 C 09/30/18 15:45 Pulse 75 09/30/18 16:10 Resp 20 09/30/18 15:45 BP 125/80 09/30/18 15:45 Pulse Ox 96 09/30/18 16:10 - Orders/Labs/Meds Labs: Laboratory Tests 09/30/18 09/30/18 09/30/18 Range/Units 16:25 16:25 16:25 WBC 9.1 (5.0-10.0) 10^3/uL RBC 4.85 (4.6-6.2) 10^6/uL Hgb 14.1 (14.0-18.0) g/dL Hct 41.6 (40.0-54.0) % MCV 85.8 (80-100) fL MCH 29.1 (27.0-34.0) pg MCHC 33.9 (33.0-35.0) g/dL Plt Count 253 (150-450) 10^3/uL Neut % (Auto) 66.9 (42.2-75.2) % Lymph % (Auto) 25.9 (20.5-50.1) % Gillespie % (Auto) 6.2 (2-8) % Eos % (Auto) 0.4 L (1.0-3.0) % Baso % (Auto) 0.6 (0.0-1.0) % Sodium 132 L (135-145) mmol/L Potassium 4.1 (3.6-5.0) mmol/L Chloride 99 L (101-111) mmol/L Carbon Dioxide 22.0 (21.0-31.0) mmol/L Anion Gap 15.1 BUN 12 (7-18) mg/dL Creatinine 0.9 (0.6-1.3) mg/dL Est Cr Clr Drug Dosing 100.38 mL/min Estimated GFR (MDRD) > 60 BUN/Creatinine Ratio 13.33 Glucose 360 H (74-105) mg/dL Calcium 8.6 (8.4-10.2) mg/dl Total Bilirubin 1.0 (0.2-1.0) mg/dL AST 24 (10-42) IU/L ALT 35 (10-60) IU/L Alkaline Phosphatase 92 (42-121) IU/L C-Reactive Protein 0.6 (0.0-1.3) mg/dL Total Protein 7.3 (6.7-8.2) g/dl Albumin 4.0 (3.2-5.5) g/dl Globulin 3.3 Albumin/Globulin Ratio 1.21 Meds: Medications Discontinued Medications Generic Name Dose Route Start Last Admin Trade Name Freq PRN Reason Stop Dose Admin Albuterol/Ipratropium 3 ml 09/30/18 16:10 09/30/18 16:28 Duoneb 3.0-0.5 Mg/3 Ml NEB 09/30/18 16:11 3 ml ONETIME ONE Administration - Radiology Interpretation Free Text/Narrative:: CXR negative per radiology. - Re-Assessments/Exams Free Text/Narrative Re-Assessment/Exam: 09/30/18 EKG is unremarkable. Labs as well. DuoNeb nebulizer ith complete resolutions of his symptoms. Without any findings of pneumonia and a normal white blood cell count I do not feel that he needs any more antibiotics. Appropriate treatment for this type of asthma exacerbation is to give him more steroids which he does not want. I explained to the patient sometimes during an asthma exacerbation or COPD exacerbation and MDI inhalers rather difficult to use to get the most benefit of the medication. He does have a nebulizer machine at home. I will have him stop his Symbicort at this time and start budesonide and a formoterol until his symptomology has improved and then he can go back to using his MDI. He is comfortable with this plan and his questions are answered. Departure - Departure Time of Disposition: 17:00 Disposition: Home, Self-Care 01 Clinical Impression: Asthma exacerbation Qualifiers: Asthma severity: mild Asthma persistence: unspecified Qualified Code(s): J45.901 - Unspecified asthma with (acute) exacerbation - Discharge Information Prescriptions: Arformoterol [Brovana] 1 puff INH BID #30 neb Budesonide [Pulmicort] 0.5 mg IH BID #30 ml Instructions: Asthma, Adult, [id number] Referrals: PCP,None [Primary Care Provider] - Forms: ED Department Discharge Additional Instructions: Hold your symbicort inhaler until symptoms resolve. Replace with budesonide solution twice daily and Brovana solution twice daily. Once back to baseline restart your Symbicort inhaler. Increase fluids over the next few days. Return to the ED if new or worsening symptoms. Follow up with primary care provider in the next 4-6 days if not improving sooner if worse. - Assessment/Plan Assessment:: Asthma exacerbation continued. Plan: Tylenol and or Ibuprofen for pain. Sciatica stretches as supplied. If pain not controlled with above. Flexeril 1 tablet three times a day as needed for pain spasms. RX given to the patient. Cefdinir 1 tablet twice daily for the next 5 days for the UTI. Lots of fluids over the next few days. Return to the ED if new or worsening symptoms. Follow up with primary care in the next 4-6 days if not improving sooner if worse. Consider PT for sciatica as well.
== END 2018-09-30 17:12 | disposition home or self-care (01) ==
LOC: DL.ED 15:22
DX: J45.901 Unspecified asthma with (acute) exacerbation (principal); E78.00 Pure hypercholesterolemia, unspecified; I10 Essential (primary) hypertension; I25.2 Old myocardial infarction; I25.10 Atherosclerotic heart disease of native coronary artery without angina pectoris; E11.9 Type 2 diabetes mellitus without complications; Z88.0 Allergy status to penicillin; Z88.8 Allergy status to other drugs, medicaments and biological substances; Z79.899 Other long term (current) drug therapy; Z79.82 Long term (current) use of aspirin; Z79.4 Long term (current) use of insulin
CPT/HCPCS: 36415; 71046; 80053; 85025; 86140; 93005; 94640; 99284; J7620-GY

== ENCOUNTER 2019-11-14 16:12 | Emergency (ER) | payer BC, MEDICAID, OTHER ==
[2019-11-14 16:51] VITALS: BP 144/76; PULSE 85
[2019-11-14] MEDS ORDERED: predniSONE 20 MG Tab PO ONE (17:32)
--- NOTE | 2019-11-14 17:37 | EDM.PDOC ---
ED HPI GENERAL MEDICAL PROBLEM - General Chief Complaint: Respiratory Problem Stated Complaint: BREATHING TROUBLE Time Seen by Provider: 11/14/19 17:30 Source of Information: Reports: Patient History Limitations: Reports: No Limitations - History of Present Illness INITIAL COMMENTS - FREE TEXT/NARRATIVE: C/O increased cough, mild congestion when lying on side at night with CPAP, non productive cough. Using Neb. No fever chills or sore throat. Hx asthma - Related Data Allergies Allergy/AdvReac Type Severity Reaction Status Date / Time insulin detemir Allergy Anaphylactic Verified 08/19/19 03:53 [From Levemir] Shock Penicillins Allergy Shortness Verified 08/19/19 03:53 of Breath pseudoephedrine Allergy Swelling Verified 08/19/19 03:53 Home Meds: Home Meds Aspirin 81 mg PO DAILY 05/06/14 [History] Insulin Aspart [Novolog Flexpen] 28 units SQ TIDAC 05/06/14 [History] Insulin Glarg,Human.Rec.Analog [Lantus Solostar] 68 units SQ ACBREAKFAST [History] metFORMIN [Glucophage] 1,000 mg PO DAILY 05/06/14 [History] Fluticasone Propionate [Flonase] 1 spray NASBOTH DAILY 06/08/14 [History] Nitroglycerin 1 tab SL ASDIRECTED PRN 06/08/14 [History] Simvastatin [Zocor] 20 mg PO BEDTIME 06/08/14 [History] lisinopriL [Prinivil] 20 mg PO DAILY 06/08/14 [History] Hydrocortisone Acetate [Anusol-Hc] 1 supp RECTAL BID PRN 01/11/16 [History] Ipratropium [Atrovent] 1 vial INH Q4H PRN 01/11/16 [History] LORazepam [Ativan] 0.5 mg PO ASDIRECTED 01/11/16 [History] Montelukast Sodium [Singulair] 10 mg PO DAILY 01/11/16 [History] Multivitamin with Minerals [Multiple Vitamin] 1 tab PO DAILY 01/11/16 [History] Pantoprazole [Protonix] 40 mg PO DAILY 01/11/16 [History] Clobetasol [Clobetasol 0.05%] 1 applic TOP ASDIRECTED PRN 01/21/18 [History] Levalbuterol HCl [Xopenex] 1 vial INH Q6H PRN 01/21/18 [History] Saxagliptin HCl [Onglyza] 2.5 mg PO DAILY 01/21/18 [History] Arformoterol [Brovana] 1 puff INH BID #30 neb 09/30/18 [Rx] Budesonide [Pulmicort] 0.5 mg IH BID #30 ml 09/30/18 [Rx] Budesonide/Formoterol Fumarate [Symbicort 160-4.5 Mcg Inhaler] 2 puff IH DAILY 09/30/18 [History] Levothyroxine Sodium [Synthroid] 25 mcg PO DAILY 08/19/19 [History] Past Medical History - Past Health History Medical/Surgical History: Denies Medical/Surgical History HEENT History: Reports: Impaired Vision, Other (See Below) Other HEENT History: Wears corrective lenses Cardiovascular History: Reports: Aneurysm, CAD, High Cholesterol, Hypertension, [place] Respiratory History: Reports: Asthma, COPD, Sleep Apnea Other Respiratory History: PFT COMPLETED Gastrointestinal History: Reports: GI Bleed, Hemorrhoids, Other (See Below) Other Gastrointestinal History: Stomach ulcer Genitourinary History: Reports: None Musculoskeletal History: Reports: Arthritis Other Musculoskeletal History: RIGHT CLAVICLE Neurological History: Reports: Other (See Below) Other Neuro History: TRIGEMINAL NEURALGIA Psychiatric History: Reports: Anxiety, Depression Endocrine/Metabolic History: Reports: Diabetes, Type II, Hyperthyroidism, Hypothyroidism, Obesity/BMI 30+ Hematologic History: Reports: Iron Deficiency Immunologic History: Reports: None Oncologic (Cancer) History: Reports: None Dermatologic History: Reports: Eczema - Infectious Disease History Infectious Disease History: Reports: MRSA Other Infectious Disease History: ROTO VIRUS ; MRSA TO ELBOW - Past Surgical History Head Surgeries/Procedures: Reports: None HEENT Surgical History: Reports: Myringotomy w Tube(s), Tonsillectomy Cardiovascular Surgical History: Reports: Other (See Below) Other Cardiovascular Surgeries/Procedures: Angiogram Respiratory Surgical History: Reports: None GI Surgical History: Reports: Colonoscopy, EGD Male Surgical History: Reports: None Endocrine Surgical History: Reports: None Neurological Surgical History: Reports: None Musculoskeletal Surgical History: Reports: Arthroscopic Knee, Shoulder Surgery, Other (See Below) Other Musculoskeletal Surgeries/Procedures:: Torn ACL Oncologic Surgical History: Reports: None Dermatological Surgical History: Reports: None Social & Family History - Family History Family Medical History: Noncontributory - Tobacco Use Smoking Status *Q: Never Smoker - Caffeine Use Caffeine Use: Reports: None Other Caffeine Use: occassional coffee - Recreational Drug Use Recreational Drug Use: No - Living Situation & Occupation Living situation: Reports: with Family Occupation: Employed ED ROS GENERAL - Review of Systems Review Of Systems: Comprehensive ROS is negative, except as noted in HPI. ED EXAM, GENERAL - Physical Exam Exam: See Below Exam Limited By: No Limitations General Appearance: Alert, No Apparent Distress Eye Exam: Bilateral Eye: EOMI Ears: Normal Canal, Hearing Grossly Normal, Normal TMs Nose: Normal Inspection Throat/Mouth: Normal Lips, Normal Voice, No Airway Compromise Head: Atraumatic, Normocephalic Neck: Normal Inspection, Full Range of Motion Respiratory/Chest: No Respiratory Distress, Decreased Breath Sounds. No: Rales , Rhonchi, Wheezing Cardiovascular: Normal Peripheral Pulses, Regular Rate, Rhythm GI/Abdominal: Normal Bowel Sounds Extremities: Normal Inspection, Normal Range of Motion. No: Pedal Edema Neurological: Alert, Oriented, Normal Cognition Psychiatric: Normal Affect, Normal Mood Skin Exam: Warm, Dry, Intact Course - Vital Signs Last Recorded V/S: Last Vital Signs Temp 97.1 F 11/14/19 16:25 Pulse 85 11/14/19 16:25 Resp 20 11/14/19 16:25 BP 144/76 H 11/14/19 16:25 Pulse Ox 98 11/14/19 16:25 - Orders/Labs/Meds Meds: Medications Discontinued Medications Generic Name Dose Route Start Last Admin Trade Name Freq PRN Reason Stop Dose Admin Prednisone 40 mg 11/14/19 17:32 11/14/19 17:44 Prednisone PO 11/14/19 17:33 40 mg ONETIME ONE Administration Departure - Departure Time of Disposition: 17:33 Disposition: Home, Self-Care 01 Condition: Good Clinical Impression: Asthma exacerbation Qualifiers: Asthma severity: mild Asthma persistence: unspecified Qualified Code(s): J45.901 - Unspecified asthma with (acute) exacerbation - Discharge Information *PRESCRIPTION DRUG MONITORING PROGRAM REVIEWED*: No *COPY OF PRESCRIPTION DRUG MONITORING REPORT IN PATIENT DANIELLE: No Instructions: Upper Respiratory Infection, Adult, [id number] Referrals: Luci An NP [Primary Care Provider] - Forms: ED Department Discharge Additional Instructions: humidification, albuterol neb every 4 hours as needed prednisone taper follow up if symptoms worsen Sepsis Event Note - Evaluation Sepsis Screening Result: No Definite Risk - Focused Exam Date Exam was Performed: 11/15/19 Time Exam was Performed: 14:46
== END 2019-11-14 17:47 | disposition home or self-care (01) ==
LOC: DL.ED 16:12
DX: J45.901 Unspecified asthma with (acute) exacerbation (principal); J44.9 Chronic obstructive pulmonary disease, unspecified; E11.9 Type 2 diabetes mellitus without complications; E05.90 Thyrotoxicosis, unspecified without thyrotoxic crisis or storm; E03.9 Hypothyroidism, unspecified; Z79.4 Long term (current) use of insulin
CPT/HCPCS: 71046; 99283; A9270

== ENCOUNTER 2020-02-10 21:43 | Emergency (ER) | payer MEDICAID, OTHER ==
[2020-02-10 22:00] VITALS: BP 141/87; PULSE 67
--- NOTE | 2020-02-10 23:16 | EDM.PDOC ---
ED HPI GENERAL MEDICAL PROBLEM - General Chief Complaint: Flank Pain Stated Complaint: broken ribs Time Seen by Provider: 02/10/20 22:05 Source of Information: Reports: Patient History Limitations: Reports: No Limitations - History of Present Illness INITIAL COMMENTS - FREE TEXT/NARRATIVE: ED with c/o left lower rib pain, concerned if ribs broke. No OSB, No cough, States reaching around and under mower and felt something pop this aramis, Pain in area since. No other c/o. No difficulty breathing, some increased pain with movement. Left Lower Chest Pain Score (Numeric/FACES): 3 - Related Data Allergies Allergy/AdvReac Type Severity Reaction Status Date / Time insulin detemir Allergy Anaphylactic Verified 02/10/20 22:00 [From Levemir] Shock Penicillins Allergy Shortness Verified 02/10/20 22:00 of Breath pseudoephedrine Allergy Swelling Verified 02/10/20 22:00 Home Meds: Home Meds Aspirin 81 mg PO DAILY 05/06/14 [History] Insulin Aspart [Novolog Flexpen] 28 units SQ TIDAC 05/06/14 [History] Insulin Glarg,Human.Rec.Analog [Lantus Solostar] 68 units SQ ACBREAKFAST [History] metFORMIN [Glucophage] 1,000 mg PO DAILY 05/06/14 [History] Fluticasone Propionate [Flonase] 1 spray NASBOTH DAILY 06/08/14 [History] Nitroglycerin 1 tab SL ASDIRECTED PRN 06/08/14 [History] Simvastatin [Zocor] 20 mg PO BEDTIME 06/08/14 [History] lisinopriL [Prinivil] 20 mg PO DAILY 06/08/14 [History] Hydrocortisone Acetate [Anusol-Hc] 1 supp RECTAL BID PRN 01/11/16 [History] Ipratropium [Atrovent] 1 vial INH Q4H PRN 01/11/16 [History] LORazepam [Ativan] 0.5 mg PO ASDIRECTED 01/11/16 [History] Montelukast Sodium [Singulair] 10 mg PO DAILY 01/11/16 [History] Multivitamin with Minerals [Multiple Vitamin] 1 tab PO DAILY 01/11/16 [History] Pantoprazole [Protonix] 40 mg PO DAILY 01/11/16 [History] Clobetasol [Clobetasol 0.05%] 1 applic TOP ASDIRECTED PRN 01/21/18 [History] Saxagliptin HCl [Onglyza] 2.5 mg PO DAILY 01/21/18 [History] levalbuterol HCL [Xopenex] 1 vial INH Q6H PRN 01/21/18 [History] Arformoterol [Brovana] 1 puff INH BID #30 neb 09/30/18 [Rx] Budesonide [Pulmicort] 0.5 mg IH BID #30 ml 09/30/18 [Rx] Budesonide/Formoterol Fumarate [Symbicort 160-4.5 Mcg Inhaler] 2 puff IH DAILY 09/30/18 [History] Levothyroxine Sodium [Synthroid] 25 mcg PO DAILY 08/19/19 [History] Past Medical History - Past Health History Medical/Surgical History: Denies Medical/Surgical History HEENT History: Reports: Impaired Vision, Other (See Below) Other HEENT History: Wears corrective lenses Cardiovascular History: Reports: Aneurysm, CAD, High Cholesterol, Hypertension, [place] Respiratory History: Reports: Asthma, COPD, Sleep Apnea Other Respiratory History: PFT COMPLETED Gastrointestinal History: Reports: GI Bleed, Hemorrhoids, Other (See Below) Other Gastrointestinal History: Stomach ulcer Genitourinary History: Reports: None Musculoskeletal History: Reports: Arthritis Other Musculoskeletal History: RIGHT CLAVICLE Neurological History: Reports: Other (See Below) Other Neuro History: TRIGEMINAL NEURALGIA Psychiatric History: Reports: Anxiety, Depression Endocrine/Metabolic History: Reports: Diabetes, Type II, Hyperthyroidism, Hypothyroidism, Obesity/BMI 30+ Hematologic History: Reports: Iron Deficiency Immunologic History: Reports: None Oncologic (Cancer) History: Reports: None Dermatologic History: Reports: Eczema - Infectious Disease History Infectious Disease History: Reports: MRSA Other Infectious Disease History: ROTO VIRUS ; MRSA TO ELBOW - Past Surgical History Head Surgeries/Procedures: Reports: None HEENT Surgical History: Reports: Myringotomy w Tube(s), Tonsillectomy Cardiovascular Surgical History: Reports: Other (See Below) Other Cardiovascular Surgeries/Procedures: Angiogram Respiratory Surgical History: Reports: None GI Surgical History: Reports: Colonoscopy, EGD Male Surgical History: Reports: None Endocrine Surgical History: Reports: None Neurological Surgical History: Reports: None Musculoskeletal Surgical History: Reports: Arthroscopic Knee, Shoulder Surgery, Other (See Below) Other Musculoskeletal Surgeries/Procedures:: Torn ACL Oncologic Surgical History: Reports: None Dermatological Surgical History: Reports: None Social & Family History - Family History Family Medical History: Noncontributory - Tobacco Use Smoking Status *Q: Never Smoker - Caffeine Use Caffeine Use: Reports: None Other Caffeine Use: occassional coffee - Recreational Drug Use Recreational Drug Use: No - Living Situation & Occupation Living situation: Reports: with Family Occupation: Employed ED ROS GENERAL - Review of Systems Review Of Systems: See Below ED EXAM, GENERAL - Physical Exam Exam: See Below Exam Limited By: No Limitations General Appearance: Alert, Mild Distress, Obese Eye Exam: Bilateral Eye: EOMI Ears: Normal External Exam Throat/Mouth: Normal Inspection Head: Atraumatic, Normocephalic Neck: Normal Inspection Respiratory/Chest: No Respiratory Distress, Lungs Clear, Normal Breath Sounds, Other (mild lower left chest tenderness with palpation). No: Rhonchi, Wheezing , Stridor, Accessory Muscle Use Cardiovascular: Normal Peripheral Pulses, Regular Rate, Rhythm, No Edema GI/Abdominal: Normal Bowel Sounds, Soft Back Exam: Normal Inspection, Full Range of Motion Extremities: Normal Inspection, Normal Range of Motion Neurological: Alert, Oriented, Normal Cognition Psychiatric: Normal Affect, Normal Mood Skin Exam: Warm, Dry, Intact, Normal Color Course - Vital Signs Last Recorded V/S: Last Vital Signs Temp 97.6 F 02/10/20 21:56 Pulse 67 02/10/20 21:56 Resp 16 02/10/20 21:56 BP 141/87 H 02/10/20 21:56 Pulse Ox 98 02/10/20 21:56 - Orders/Labs/Meds Orders: Active Orders 24 hr Category Date Time Status Ribs 2V wo Chest Lt [CR] Urgent Exams 02/10/20 22:05 Taken - Radiology Interpretation Free Text/Narrative:: rib/CXR left no acute fractures, see report Departure - Departure Time of Disposition: 23:12 Disposition: Home, Self-Care 01 Condition: Good Clinical Impression: Rib pain on left side - Discharge Information *PRESCRIPTION DRUG MONITORING PROGRAM REVIEWED*: No *COPY OF PRESCRIPTION DRUG MONITORING REPORT IN PATIENT DANIELLE: No Instructions: Chest Wall Pain, [id number] Forms: ED Department Discharge Additional Instructions: alternate tylenol and ibuprofen every 4 hours as needed heat or ice pack to area for comfort e deep breathing exercises every hour while awake follow up if symtpms worsen or difficulty breathing Sepsis Event Note - Evaluation Sepsis Screening Result: No Definite Risk - Focused Exam Vital Signs: Vital Signs Temp Pulse Resp BP Pulse Ox 02/10/20 21:56 97.6 F 67 16 141/87 H 98 Date Exam was Performed: 02/11/20 Time Exam was Performed: 06:13 - My Orders Last 24 Hours: My Active Orders 02/10/20 22:05 Ribs 2V wo Chest Lt [CR] Urgent - Assessment/Plan Last 24 Hours: My Active Orders 02/10/20 22:05 Ribs 2V wo Chest Lt [CR] Urgent
== END 2020-02-10 23:30 | disposition home or self-care (01) ==
LOC: DL.ED 21:43
DX: R07.81 Pleurodynia (principal); I10 Essential (primary) hypertension; E78.00 Pure hypercholesterolemia, unspecified; I25.2 Old myocardial infarction; I25.10 Atherosclerotic heart disease of native coronary artery without angina pectoris; J44.9 Chronic obstructive pulmonary disease, unspecified; F41.9 Anxiety disorder, unspecified; F32.9 Major depressive disorder, single episode, unspecified; E11.9 Type 2 diabetes mellitus without complications; E05.90 Thyrotoxicosis, unspecified without thyrotoxic crisis or storm; Z88.0 Allergy status to penicillin; Z88.8 Allergy status to other drugs, medicaments and biological substances; Z79.82 Long term (current) use of aspirin; Z79.4 Long term (current) use of insulin; Z79.899 Other long term (current) drug therapy
CPT/HCPCS: 71100-LT; 99283-25

== ENCOUNTER 2020-02-26 06:31 | Day surgery (SDC) | payer MEDICAID, OTHER ==
[2020-02-26] MEDS ORDERED: Midazolam 1 MG/ML 2 ML SDV IV ONE ×7 (06:32→07:40)
[2020-02-26] MEDS ORDERED: fentaNYL 100 MCG/2 ML SDV IV ONE ×3 (06:32→07:30)
--- NOTE | 2020-02-26 09:25 | OR ---
DATE: 02/26/2020 PROCEDURE: Total colonoscopy. INSTRUMENT USED: PCF-H190DL Olympus video colonoscope. PREMEDICATIONS: Fentanyl 100 mcg intravenous, Versed 4 mg intravenous, nasal O2 cannula. The procedure was done under pulse oximetry, BP recording, and desk monitor. INDICATION: The patient with rectal bleeding. Colonoscopic examination is done for detection of any polypoid lesions and removal, endoscopic hemostasis therapy if needed. DESCRIPTION OF PROCEDURE: Initial rectal exam was unremarkable. Rigid anoscopy showed moderate sized internal hemorrhoids without bleeding from them. The colonoscope was passed with ease. Scattered diverticula were noted in the distal left colon with some deformity. The scope was passed with ease up to the ileocecal area. Photographs were taken of the normal-appearing cecum, identified by landmarks of appendiceal orifice and double-bulged ileocecal folds. No bleeding was noted from any of the visualized areas. The bowel preparation was found to be adequate, [place] scale 2 in all the regions. No stricture. No vascular ectasia. No large isolated ulcerations seen. No evidence of diffuse inflammatory bowel disease in the form of friability, contact bleeding, or ulcerations. No polyp or tumor mass identified. Probing the proximal sides of folds and flexures using adequate distention and clearing up the stool material, withdrawal of the scope was made. Cecum to rectum time over 6 minutes. No bleeding was noted from any of the visualized areas at the completion of examination. IMPRESSION: 1. Internal hemorrhoids. 2. Diverticulosis. The patient tolerated the procedure well. [facility] /[id number]
[2020-02-26 09:55] VITALS: BP 124/83; PULSE 49
--- NOTE | 2020-02-26 14:41 | LETTER ---
02/26/2020 RE: TREVOR STEEN DINO : 1970 Tl Davis MD [facility] [address] [place] [address] Davis: Mr. Trevor Thomas Jf had colonoscopic examination done this morning and he tolerated the procedure well. I herewith send a copy of the endoscopy note and photographs for your review. Thank you. Sincerely, [facility] /[id number]
== END 2020-02-26 09:59 | disposition home or self-care (01) ==
LOC: DL.ENDO 06:31
PROVIDERS: ATTEND Internal Medicine Gastroenterology
DX: K64.8 Other hemorrhoids (principal); K57.31 Diverticulosis of large intestine without perforation or abscess with bleeding; E66.09 Other obesity due to excess calories; I10 Essential (primary) hypertension; E11.9 Type 2 diabetes mellitus without complications; G47.33 Obstructive sleep apnea (adult) (pediatric); F32.9 Major depressive disorder, single episode, unspecified; I25.10 Atherosclerotic heart disease of native coronary artery without angina pectoris; J30.9 Allergic rhinitis, unspecified; Z88.0 Allergy status to penicillin; Z68.41 Body mass index [BMI] 40.0-44.9, adult
CPT/HCPCS: G0121; J2250; J3010; J7042

== ENCOUNTER 2020-04-18 14:47 | Emergency (ER) | payer MEDICAID, OTHER ==
[2020-04-18 15:23] VITALS: BP 115/65; PULSE 79
[2020-04-18] MEDS ORDERED: Promethazine 25 MG/ML SDV IM ONE (15:33)
[2020-04-18] MEDS ORDERED: Sodium Chloride 0.9% 10 ML Syringe FLUSH PRN (15:33)
[2020-04-18] MEDS ORDERED: Sodium Chloride 0.9% 1,000 ML IV ONE (15:33)
[2020-04-18] MEDS ORDERED: Ketorolac 30 MG/ML SDV IVPUSH ONE (15:33)
--- NOTE | 2020-04-18 15:40 | EDM.PDOC ---
ED HPI GENERAL MEDICAL PROBLEM - General Chief Complaint: Headache Stated Complaint: HEADACHE Time Seen by Provider: 04/18/20 15:34 Source of Information: Reports: Patient, Old Records, RN, RN Notes Reviewed History Limitations: Reports: No Limitations - History of Present Illness INITIAL COMMENTS - FREE TEXT/NARRATIVE: Pt presents to ER from home by POV with c/o onset of migraine headache this morning. No relief with Ibuprofen. Pt reports long Hx of migraine with exactly the same presentation. Admits to nausea. Denies vomiting, fever, neck pain, or any other symptoms. Onset: Today Duration: Constant Location: Reports: Head Quality: Reports: Same as Previous Episode Severity: Severe Improves with: Reports: None Worsens with: Reports: None Associated Symptoms: Reports: No Other Symptoms Treatments [employer]: Reports: NSAIDS Left Posterior Head Pain Score (Numeric/FACES): 5 - Related Data Allergies Allergy/AdvReac Type Severity Reaction Status Date / Time insulin detemir Allergy Anaphylactic Verified 02/26/20 06:49 [From Levemir] Shock Penicillins Allergy Shortness Verified 02/26/20 06:49 of Breath pseudoephedrine Allergy Swelling Verified 02/26/20 06:49 Home Meds: Home Meds Aspirin 81 mg PO DAILY 05/06/14 [History] Insulin Glarg,Human.Rec.Analog [Lantus Solostar] 68 units SQ ACBREAKFAST 05/06/14 [History] metFORMIN [Glucophage] 1,000 mg PO DAILY 05/06/14 [History] Fluticasone Propionate [Flonase] 1 spray NASBOTH DAILY 06/08/14 [History] Nitroglycerin 1 tab SL ASDIRECTED PRN 06/08/14 [History] lisinopriL [Prinivil] 20 mg PO DAILY 06/08/14 [History] Hydrocortisone Acetate [Anusol-Hc] 1 supp RECTAL BID PRN 01/11/16 [History] Ipratropium [Atrovent] 1 vial INH Q4H PRN 01/11/16 [History] Multivitamin with Minerals [Multiple Vitamin] 1 tab PO DAILY 01/11/16 [History] Pantoprazole [Protonix] 40 mg PO DAILY 01/11/16 [History] Clobetasol [Clobetasol 0.05%] 1 applic TOP ASDIRECTED PRN 01/21/18 [History] Saxagliptin HCl [Onglyza] 5 mg PO DAILY 01/21/18 [History] levalbuterol HCL [Xopenex] 1 vial INH Q6H PRN 01/21/18 [History] Budesonide [Pulmicort] 0.5 mg IH BID #30 ml 09/30/18 [Rx] Budesonide/Formoterol Fumarate [Symbicort 160-4.5 Mcg Inhaler] 2 puff IH DAILY 09/30/18 [History] Levothyroxine Sodium [Synthroid] 25 mcg PO DAILY 08/19/19 [History] Rosuvastatin [Crestor] 5 mg PO DAILY 02/26/20 [History] Past Medical History - Past Health History Medical/Surgical History: Denies Medical/Surgical History HEENT History: Reports: Impaired Vision, Other (See Below) Other HEENT History: Wears corrective lenses Cardiovascular History: Reports: Aneurysm, CAD, High Cholesterol, Hypertension, [place] Respiratory History: Reports: Asthma, COPD, Sleep Apnea Other Respiratory History: PFT COMPLETED Gastrointestinal History: Reports: GI Bleed, Hemorrhoids, Other (See Below) Other Gastrointestinal History: Stomach ulcer Genitourinary History: Reports: None Musculoskeletal History: Reports: Arthritis Other Musculoskeletal History: RIGHT CLAVICLE Neurological History: Reports: Other (See Below) Other Neuro History: TRIGEMINAL NEURALGIA Psychiatric History: Reports: Anxiety, Depression Endocrine/Metabolic History: Reports: Diabetes, Type II, Hyperthyroidism, Hypothyroidism, Obesity/BMI 30+ Hematologic History: Reports: Iron Deficiency Immunologic History: Reports: None Oncologic (Cancer) History: Reports: Lung 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 Dermatologic History: Reports: Eczema - Infectious Disease History Infectious Disease History: Reports: MRSA Other Infectious Disease History: ROTO VIRUS ; MRSA TO ELBOW - Past Surgical History Head Surgeries/Procedures: Reports: None HEENT Surgical History: Reports: Myringotomy w Tube(s), Tonsillectomy Cardiovascular Surgical History: Reports: Other (See Below) Other Cardiovascular Surgeries/Procedures: Angiogram Respiratory Surgical History: Reports: None GI Surgical History: Reports: Colonoscopy, EGD Male Surgical History: Reports: None Endocrine Surgical History: Reports: None Neurological Surgical History: Reports: None Musculoskeletal Surgical History: Reports: Arthroscopic Knee, Shoulder Surgery, Other (See Below) Other Musculoskeletal Surgeries/Procedures:: Torn ACL Oncologic Surgical History: Reports: None Dermatological Surgical History: Reports: None Social & Family History - Family History Family Medical History: Noncontributory - Tobacco Use Smoking Status *Q: Never Smoker - Caffeine Use Caffeine Use: Reports: None Other Caffeine Use: occassional coffee (DECAF) - Recreational Drug Use Recreational Drug Use: No - Living Situation & Occupation Living situation: Reports: with Family Occupation: Employed ED ROS GENERAL - Review of Systems Review Of Systems: Comprehensive ROS is negative, except as noted in HPI. - Physical Exam Exam: See Below Exam Limited By: No Limitations General Appearance: Alert, WD/WN, No Apparent Distress Eye Exam: Bilateral Eye: EOMI, Normal Inspection, PERRL Ears: Normal External Exam, Normal Canal, Hearing Grossly Normal, Normal TMs Nose: Normal Inspection, Normal Mucosa, No Blood Throat/Mouth: Normal Inspection, Normal Lips, Normal Teeth, Normal Gums, Normal Oropharynx, Normal Voice, No Airway Compromise Head Exam: Atraumatic, Normocephalic Neck: Normal Inspection, Supple, Non-Tender, Full Range of Motion Respiratory/Chest: No Respiratory Distress, Lungs Clear, Normal Breath Sounds, No Accessory Muscle Use, Chest Non-Tender Cardiovascular: Regular Rate, Rhythm GI/Abdominal: Normal Bowel Sounds, Soft, Non-Tender Neuro Exam (Abbreviated): Alert, Oriented, CN II-XII Intact, Normal Cognition, Normal Gait, No Motor/Sensory Deficits Extremities: Normal Inspection Psychiatric: Normal Affect, Normal Mood Skin Exam: Warm, Dry, Intact, Normal Color, No Rash Course - Vital Signs Last Recorded V/S: Last Vital Signs Temp 97.4 F 04/18/20 15:22 Pulse 79 04/18/20 15:22 Resp 16 04/18/20 15:22 BP 115/65 04/18/20 15:22 Pulse Ox 96 04/18/20 15:22 - Orders/Labs/Meds Orders: Active Orders 24 hr Category Date Time Status Peripheral IV Care [RC] . DIRECTED Care 04/18/20 15:33 Ordered Ketorolac [Toradol] Med 04/18/20 15:33 Once 30 mg IVPUSH ONETIME ONE Promethazine [Phenergan] Med 04/18/20 15:33 Once 25 mg IM ONETIME ONE Sodium Chloride 0.9% [Normal Saline] 1,000 ml Med 04/18/20 15:33 Ordered IV .BOLUS Sodium Chloride 0.9% [Saline Flush] Med 04/18/20 15:33 Ordered 10 ml FLUSH ASDIRECTED PRN Peripheral IV Insertion Adult [OM.PC] Stat Oth 04/18/20 15:33 Ordered Departure - Departure Time of Disposition: 16:00 Disposition: Home, Self-Care 01 Condition: Good Clinical Impression: Migraine Qualifiers: Migraine type: unspecified Status migrainosus presence: without status migrainosus Intractability: intractable Qualified Code(s): G43.919 - Migraine, unspecified, intractable, without status migrainosus - Discharge Information *PRESCRIPTION DRUG MONITORING PROGRAM REVIEWED*: Not Applicable *COPY OF PRESCRIPTION DRUG MONITORING REPORT IN PATIENT DANIELLE: Not Applicable Instructions: Migraine Headache, [id number] Additional Instructions: Rx: Toradol 10mg Rx: Promethazine 25mg Follow up if needed. Sepsis Event Note (ED) - Evaluation Sepsis Screening Result: No Definite Risk - Focused Exam Vital Signs: Vital Signs Temp Pulse Resp BP Pulse Ox 04/18/20 15:22 97.4 F 79 16 115/65 96 - My Orders Last 24 Hours: My Active Orders 04/18/20 15:33 Peripheral IV Care [RC] . DIRECTED Ketorolac [Toradol] 30 mg IVPUSH ONETIME ONE Promethazine [Phenergan] 25 mg IM ONETIME ONE Sodium Chloride 0.9% [Normal Saline] 1,000 ml IV .BOLUS Sodium Chloride 0.9% [Saline Flush] 10 ml FLUSH ASDIRECTED PRN Peripheral IV Insertion Adult [OM.PC] Stat - Assessment/Plan Last 24 Hours: My Active Orders 04/18/20 15:33 Peripheral IV Care [RC] . DIRECTED Ketorolac [Toradol] 30 mg IVPUSH ONETIME ONE Promethazine [Phenergan] 25 mg IM ONETIME ONE Sodium Chloride 0.9% [Normal Saline] 1,000 ml IV .BOLUS Sodium Chloride 0.9% [Saline Flush] 10 ml FLUSH ASDIRECTED PRN Peripheral IV Insertion Adult [OM.PC] Stat
== END 2020-04-18 16:50 | disposition home or self-care (01) ==
LOC: DL.ED 14:47
DX: G43.919 Migraine, unspecified, intractable, without status migrainosus (principal); I25.10 Atherosclerotic heart disease of native coronary artery without angina pectoris; E78.00 Pure hypercholesterolemia, unspecified; I10 Essential (primary) hypertension; I25.2 Old myocardial infarction; J44.9 Chronic obstructive pulmonary disease, unspecified; J45.909 Unspecified asthma, uncomplicated; M19.90 Unspecified osteoarthritis, unspecified site; F41.9 Anxiety disorder, unspecified; F32.9 Major depressive disorder, single episode, unspecified; E11.9 Type 2 diabetes mellitus without complications; E66.9 Obesity, unspecified; Z68.41 Body mass index [BMI] 40.0-44.9, adult; Z88.8 Allergy status to other drugs, medicaments and biological substances; Z88.0 Allergy status to penicillin; Z79.82 Long term (current) use of aspirin; Z79.4 Long term (current) use of insulin
CPT/HCPCS: 96372; 96374; 99283; J1885; J2550; J7030

== ENCOUNTER 2020-06-29 18:14 | Emergency (ER) | payer MEDICAID ==
[2020-06-29 18:33] VITALS: BP 137/67; PULSE 78
--- NOTE | 2020-06-29 18:47 | EDM.PDOC ---
<Dakotah He - Last Filed: 06/29/20 18:49> ED HPI GENERAL MEDICAL PROBLEM - General Chief Complaint: ENT Problem Stated Complaint: SINUS INFECTION [id number] Time Seen by Provider: 06/29/20 18:30 History Limitations: Reports: No Limitations - History of Present Illness INITIAL COMMENTS - FREE TEXT/NARRATIVE: Pt is a 50 y/o male who presents to the ED complaining of sinus pressure, rhinorrhea, and nosebleeds. Onset of this problem was four days ago. He has had similar episodes in the past. This has been accompanied by sore throat. He denies any fevers, chills, body aches, or fatigue. No chest pain or shortness of breath. He has been using Flonase at home along with sinus irrigation. - Related Data Allergies Allergy/AdvReac Type Severity Reaction Status Date / Time insulin detemir Allergy Anaphylactic Verified 06/29/20 18:30 [From Levemir] Shock Penicillins Allergy Shortness Verified 06/29/20 18:30 of Breath pseudoephedrine Allergy Swelling Verified 06/29/20 18:30 Home Meds: Home Meds Aspirin 81 mg PO DAILY 05/06/14 [History] Insulin Glarg,Human.Rec.Analog [Lantus Solostar] 68 units SQ ACBREAKFAST 05/06/14 [History] metFORMIN [Glucophage] 1,000 mg PO DAILY 05/06/14 [History] Fluticasone Propionate [Flonase] 1 spray NASBOTH DAILY 06/08/14 [History] Nitroglycerin 1 tab SL ASDIRECTED PRN 06/08/14 [History] lisinopriL [Prinivil] 20 mg PO DAILY 06/08/14 [History] Hydrocortisone Acetate [Anusol-Hc] 1 supp RECTAL BID PRN 01/11/16 [History] Ipratropium [Atrovent] 1 vial INH Q4H PRN 01/11/16 [History] Multivitamin with Minerals [Multiple Vitamin] 1 tab PO DAILY 01/11/16 [History] Pantoprazole [Protonix] 40 mg PO DAILY 01/11/16 [History] Clobetasol [Clobetasol 0.05%] 1 applic TOP ASDIRECTED PRN 01/21/18 [History] Saxagliptin HCl [Onglyza] 5 mg PO DAILY 01/21/18 [History] levalbuterol HCL [Xopenex] 1 vial INH Q6H PRN 01/21/18 [History] Budesonide [Pulmicort] 0.5 mg IH BID #30 ml 09/30/18 [Rx] Budesonide/Formoterol Fumarate [Symbicort 160-4.5 Mcg Inhaler] 2 puff IH DAILY 09/30/18 [History] Levothyroxine Sodium [Synthroid] 25 mcg PO DAILY 08/19/19 [History] Rosuvastatin [Crestor] 5 mg PO DAILY 02/26/20 [History] Past Medical History - Past Health History Medical/Surgical History: Denies Medical/Surgical History HEENT History: Reports: Impaired Vision, Other (See Below) Other HEENT History: Wears corrective lenses Cardiovascular History: Reports: Aneurysm, CAD, High Cholesterol, Hypertension, [place] Respiratory History: Reports: Asthma, COPD, Sleep Apnea Other Respiratory History: PFT COMPLETED Gastrointestinal History: Reports: GI Bleed, Hemorrhoids, Other (See Below) Other Gastrointestinal History: Stomach ulcer Genitourinary History: Reports: None Musculoskeletal History: Reports: Arthritis Other Musculoskeletal History: RIGHT CLAVICLE Neurological History: Reports: Other (See Below) Other Neuro History: TRIGEMINAL NEURALGIA Psychiatric History: Reports: Anxiety, Depression Endocrine/Metabolic History: Reports: Diabetes, Type II, Hyperthyroidism, Hypothyroidism, Obesity/BMI 30+ Hematologic History: Reports: Iron Deficiency Immunologic History: Reports: None Oncologic (Cancer) History: Reports: Lung 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 Dermatologic History: Reports: Eczema - Infectious Disease History Infectious Disease History: Reports: MRSA Other Infectious Disease History: ROTO VIRUS ; MRSA TO ELBOW - Past Surgical History Head Surgeries/Procedures: Reports: None HEENT Surgical History: Reports: Myringotomy w Tube(s), Tonsillectomy Cardiovascular Surgical History: Reports: Other (See Below) Other Cardiovascular Surgeries/Procedures: Angiogram Respiratory Surgical History: Reports: None GI Surgical History: Reports: Colonoscopy, EGD Male Surgical History: Reports: None Endocrine Surgical History: Reports: None Neurological Surgical History: Reports: None Musculoskeletal Surgical History: Reports: Arthroscopic Knee, Shoulder Surgery, Other (See Below) Other Musculoskeletal Surgeries/Procedures:: Torn ACL Oncologic Surgical History: Reports: None Dermatological Surgical History: Reports: None Social & Family History - Family History Family Medical History: Noncontributory - Tobacco Use Tobacco Use Status *Q: Never Tobacco User - Caffeine Use Caffeine Use: Reports: None Other Caffeine Use: occassional coffee (DECAF) - Recreational Drug Use Recreational Drug Use: No - Living Situation & Occupation Living situation: Reports: with Family Occupation: Employed ED ROS ENT - Review of Systems Review Of Systems: See Below Constitutional: Denies: Fever, Chills, Weakness, Fatigue HEENT: Reports: Nosebleed, Rhinitis, Sinus Problem, Throat Pain Respiratory: Denies: Shortness of Breath, Cough Cardiovascular: Denies: Chest Pain GI/Abdominal: Denies: Abdominal Pain, Nausea, Vomiting Musculoskeletal: Denies: Muscle Pain ED EXAM, ENT - Physical Exam Exam: See Below Exam Limited By: No Limitations General Appearance: Alert, WD/WN, No Apparent Distress Eye Exam: Bilateral Eye: EOMI, Normal Inspection, PERRL Ears: Normal External Exam, Normal Canal, Hearing Grossly Normal, Normal TMs (scarring present) Nose: Normal Mucousa, Clear Rhinorrhea, Dried Blood. No: Active Bleeding Mouth/Throat: Normal Inspection Head: Atraumatic, Normocephalic. No: Facial Swelling, Sinus Tenderness Neck: Supple, Non-Tender. No: Lymphadenopathy (L), Lymphadenopathy (R) Respiratory/Chest: No Respiratory Distress, Lungs Clear, Normal Breath Sounds, No Accessory Muscle Use, Chest Non-Tender Cardiovascular: Normal Peripheral Pulses, Regular Rate, Rhythm, No Edema, No Gallop, No Murmur, No Rub GI/Abdominal: Normal Bowel Sounds, Soft, Non-Tender, No Distention Extremities: Normal Inspection, Non-Tender Neurological: Alert, Oriented, Normal Cognition, Normal Gait, Normal Reflexes Skin: Warm, Dry Departure - Departure Time of Disposition: 18:44 Disposition: Home, Self-Care 01 Condition: Good Clinical Impression: Sinusitis Qualifiers: Sinusitis location: maxillary Chronicity: acute Recurrence: recurrent Qualified Code(s): J01.01 - Acute recurrent maxillary sinusitis - Discharge Information *PRESCRIPTION DRUG MONITORING PROGRAM REVIEWED*: Not Applicable *COPY OF PRESCRIPTION DRUG MONITORING REPORT IN PATIENT DANIELLE: Not Applicable Instructions: Sinusitis, Adult, How to Perform a Sinus Rinse Forms: ED Department Discharge Additional Instructions: Continue use of Flonase and sinus rinses. Use Tylenol or ibuprofen for discomfort. If this problem persists beyond 10 days, you may require a course of antibiotics. Follow up with your primary care provider if symptoms worsen or fail to improve. Sepsis Event Note (ED) - Evaluation Sepsis Screening Result: No Definite Risk - Problem List & Annotations (1) Sinusitis SNOMED Code(s): 82005781 Code(s): J32.9 - CHRONIC SINUSITIS, UNSPECIFIED Status: Acute Priority: Low Qualifiers: Sinusitis location: maxillary Chronicity: acute Recurrence: recurrent Qualified Code(s): J01.01 - Acute recurrent maxillary sinusitis - Problem List Review Problem List Initiated/Reviewed/Updated: Yes - Assessment/Plan Assessment:: Acute left maxillary sinusitis. Patient is afebrile without sinus pain or pressure on palpation or percussion. Duration of illness 4 days. Likely viral or allergic in etiology. Plan: Patient is counseled on conservative management of acute sinusitis. Less than 2% are caused by bacteria in the first 10 days of illness, antibiotics are not indicated at this time. Recommend continued use of Flonase, sinus rinses, hot/steamy showers for further relief. Follow up with PCP if symptoms persist beyond ten days, or if you develop fevers or feel significantly ill. Patient voices understanding and agreement with this plan. <Sakina Peters - Last Filed: 06/30/20 01:43> ED HPI GENERAL MEDICAL PROBLEM - General Source of Information: Reports: Patient Course - Vital Signs Last Recorded V/S: Last Vital Signs Temp 98.9 F 06/29/20 18:30 Pulse 78 06/29/20 18:30 Resp 14 06/29/20 18:30 BP 137/67 06/29/20 18:30 Pulse Ox 97 06/29/20 18:30 - Re-Assessments/Exams Free Text/Narrative Re-Assessment/Exam: I was present with resident during history and exam. I discussed the case with resident and agree with the findings and plan as documented in the residents note. Sepsis Event Note (ED) - Focused Exam Vital Signs: Vital Signs Temp Pulse Resp BP Pulse Ox 06/29/20 18:30 98.9 F 78 14 137/67 97
== END 2020-06-29 18:54 | disposition home or self-care (01) ==
LOC: DL.ED 18:14
DX: J01.01 Acute recurrent maxillary sinusitis (principal); I25.10 Atherosclerotic heart disease of native coronary artery without angina pectoris; E78.00 Pure hypercholesterolemia, unspecified; I10 Essential (primary) hypertension; I25.2 Old myocardial infarction; J45.909 Unspecified asthma, uncomplicated; M19.90 Unspecified osteoarthritis, unspecified site; E11.9 Type 2 diabetes mellitus without complications; F41.9 Anxiety disorder, unspecified; F32.9 Major depressive disorder, single episode, unspecified; E03.9 Hypothyroidism, unspecified; E66.9 Obesity, unspecified; Z79.4 Long term (current) use of insulin; Z68.41 Body mass index [BMI] 40.0-44.9, adult; Z88.0 Allergy status to penicillin; Z88.8 Allergy status to other drugs, medicaments and biological substances; Z79.82 Long term (current) use of aspirin
CPT/HCPCS: 99282

== ENCOUNTER 2020-07-14 22:47 | Emergency (ER) | payer MEDICAID ==
[2020-07-14] MEDS ORDERED: LORazepam 1 MG Tab PO ONE (22:48)
[2020-07-14 22:52] VITALS: BP 154/70; PULSE 85
--- NOTE | 2020-07-14 23:19 | CR ---
PROCEDURE INFORMATION: Exam: XR Chest, 1 View Exam date and time: 07/14/2020 11:08 PM Age: 50 years old Clinical indication: Other: Pain; Additional info: Chest pain TECHNIQUE: Imaging protocol: XR of the chest Views: 1 view. COMPARISON: CR Chest 2V 11/14/2019 4:35 PM FINDINGS: Lungs: Unremarkable. No consolidation. Pleural space: Unremarkable. No pleural effusion. No pneumothorax. Heart/Mediastinum: Unremarkable. No cardiomegaly. Bones/joints: Unremarkable. IMPRESSION: No acute findings.
--- NOTE | 2020-07-14 23:20 | EDM.PDOC ---
ED HPI GENERAL MEDICAL PROBLEM - General Chief Complaint: Chest Pain Stated Complaint: HEART ATTACK Time Seen by Provider: 07/14/20 23:15 Source of Information: Reports: Patient History Limitations: Reports: No Limitations - History of Present Illness INITIAL COMMENTS - FREE TEXT/NARRATIVE: sudden onset left chest pain wile watching TV, took NTG [employer] and drove self here and feeling better now, also give h/o anxiety and wasn't sure if this is anxiety or heart attack which he had 2x last in 2011. no stents. does f/u with [facility] cardio and last visit beginning of year had CAT told everything ok presently. Chest Pain Score (Numeric/FACES): 3 - Related Data Allergies Allergy/AdvReac Type Severity Reaction Status Date / Time insulin detemir Allergy Anaphylactic Verified 07/14/20 22:55 [From Levemir] Shock Penicillins Allergy Shortness Verified 07/14/20 22:55 of Breath pseudoephedrine Allergy Swelling Verified 07/14/20 22:55 Home Meds: Home Meds Aspirin 81 mg PO DAILY 05/06/14 [History] Insulin Glarg,Human.Rec.Analog [Lantus Solostar] 68 units SQ ACBREAKFAST 05/06/14 [History] metFORMIN [Glucophage] 1,000 mg PO DAILY 05/06/14 [History] Fluticasone Propionate [Flonase] 1 spray NASBOTH DAILY 06/08/14 [History] Nitroglycerin 1 tab SL ASDIRECTED PRN 06/08/14 [History] lisinopriL [Prinivil] 20 mg PO DAILY 06/08/14 [History] Hydrocortisone Acetate [Anusol-Hc] 1 supp RECTAL BID PRN 01/11/16 [History] Ipratropium [Atrovent] 1 vial INH Q4H PRN 01/11/16 [History] Multivitamin with Minerals [Multiple Vitamin] 1 tab PO DAILY 01/11/16 [History] Pantoprazole [Protonix] 40 mg PO DAILY 01/11/16 [History] Clobetasol [Clobetasol 0.05%] 1 applic TOP ASDIRECTED PRN 01/21/18 [History] Saxagliptin HCl [Onglyza] 5 mg PO DAILY 01/21/18 [History] levalbuterol HCL [Xopenex] 1 vial INH Q6H PRN 01/21/18 [History] Budesonide [Pulmicort] 0.5 mg IH BID #30 ml 09/30/18 [Rx] Budesonide/Formoterol Fumarate [Symbicort 160-4.5 Mcg Inhaler] 2 puff IH DAILY 09/30/18 [History] Levothyroxine Sodium [Synthroid] 25 mcg PO DAILY 08/19/19 [History] Rosuvastatin [Crestor] 5 mg PO DAILY 02/26/20 [History] Past Medical History - Past Health History Medical/Surgical History: Denies Medical/Surgical History HEENT History: Reports: Impaired Vision, Other (See Below) Other HEENT History: Wears corrective lenses Cardiovascular History: Reports: Aneurysm, CAD, High Cholesterol, Hypertension, [place] Respiratory History: Reports: Asthma, COPD, Sleep Apnea Other Respiratory History: PFT COMPLETED Gastrointestinal History: Reports: GERD, GI Bleed, Hemorrhoids, Other (See Below) Other Gastrointestinal History: Stomach ulcer Genitourinary History: Reports: None Musculoskeletal History: Reports: Arthritis Other Musculoskeletal History: RIGHT CLAVICLE Neurological History: Reports: Other (See Below) Other Neuro History: TRIGEMINAL NEURALGIA Psychiatric History: Reports: Anxiety, Depression Endocrine/Metabolic History: Reports: Diabetes, Type II, Hyperthyroidism, Hypothyroidism, Obesity/BMI 30+ Hematologic History: Reports: Iron Deficiency Immunologic History: Reports: None Oncologic (Cancer) History: Reports: Lung 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 Dermatologic History: Reports: Eczema - Infectious Disease History Infectious Disease History: Reports: MRSA Other Infectious Disease History: ROTO VIRUS ; MRSA TO ELBOW - Past Surgical History Head Surgeries/Procedures: Reports: None HEENT Surgical History: Reports: Myringotomy w Tube(s), Tonsillectomy Cardiovascular Surgical History: Reports: Other (See Below) Other Cardiovascular Surgeries/Procedures: Angiogram (2) Respiratory Surgical History: Reports: None GI Surgical History: Reports: Colonoscopy, EGD Male Surgical History: Reports: None Endocrine Surgical History: Reports: None Neurological Surgical History: Reports: None Musculoskeletal Surgical History: Reports: Arthroscopic Knee, Shoulder Surgery, Other (See Below) Other Musculoskeletal Surgeries/Procedures:: Torn ACL Oncologic Surgical History: Reports: None Dermatological Surgical History: Reports: None Social & Family History - Family History Family Medical History: Noncontributory - Tobacco Use Tobacco Use Status *Q: Never Tobacco User Second Hand Smoke Exposure: No - Caffeine Use Caffeine Use: Reports: Soda Other Caffeine Use: occassional coffee (DECAF) - Recreational Drug Use Recreational Drug Use: No - Living Situation & Occupation Living situation: Reports: with Family Occupation: Employed ED ROS GENERAL - Review of Systems Review Of Systems: Comprehensive ROS is negative, except as noted in HPI. ED EXAM, GENERAL - Physical Exam Exam: See Below Exam Limited By: No Limitations General Appearance: Alert, WD/WN, Anxious, Mild Distress Ears: Hearing Grossly Normal Throat/Mouth: Normal Voice, No Airway Compromise Head: Atraumatic Neck: Non-Tender, Full Range of Motion Respiratory/Chest: No Respiratory Distress, No Accessory Muscle Use, Rhonchi. No: Decreased Breath Sounds Cardiovascular: Regular Rate, Rhythm GI/Abdominal: Soft, Non-Tender (Male) Exam: Deferred Rectal (Males) Exam: Deferred Neurological: Alert, Oriented, Normal Cognition, Normal Gait, No Motor/Sensory Deficits Psychiatric: Flat Affect Skin Exam: Warm, Dry, Normal Color Lymphatic: No Adenopathy Course - Vital Signs Last Recorded V/S: Last Vital Signs Temp 36.8 C 07/14/20 22:50 Pulse 85 07/14/20 22:50 Resp 18 07/14/20 22:50 BP 154/70 H 07/14/20 22:50 Pulse Ox 94 L 07/14/20 22:50 - Orders/Labs/Meds Orders: Active Orders 24 hr Category Date Time Status EKG 12 Lead [EKG Documentation Completion] [RC] URGENT Care 07/14/20 22:55 Active Labs: Laboratory Tests 07/14/20 07/14/20 Range/Units 22:55 22:55 WBC 10.0 (5.0-10.0) 10^3/uL RBC 5.06 (4.6-6.2) 10^6/uL Hgb 14.9 (14.0-18.0) g/dL Hct 43.9 (40.0-54.0) % MCV 86.8 (80-100) fL MCH 29.4 (27.0-34.0) pg MCHC 33.9 (33.0-35.0) g/dL Plt Count 272 (150-450) 10^3/uL Neut % (Auto) 67.4 (42.2-75.2) % Lymph % (Auto) 20.3 L (20.5-50.1) % [place] % (Auto) 8.9 H (2-8) % Eos % (Auto) 2.9 (1.0-3.0) % Baso % (Auto) 0.5 (0.0-1.0) % Sodium 140 (136-145) mmol/L Potassium 3.6 (3.5-5.1) mmol/L Chloride 104 (98-107) mmol/L Carbon Dioxide 27 (21-32) mmol/L Anion Gap 12.6 (7-13) mEq/L BUN 10 (7-18) mg/dL Creatinine 0.97 (0.70-1.30) mg/dL Est Cr Clr Drug Dosing 91.11 mL/min Estimated GFR (MDRD) > 60 BUN/Creatinine Ratio 10.3 (No establ ref range) Glucose 126 H (74-99) mg/dL Calcium 8.0 L (8.5-10.1) mg/dL Total Bilirubin 0.6 (0.2-1.0) mg/dL AST 15 (15-37) U/L ALT 28 (16-63) U/L Alkaline Phosphatase 95 (46-116) U/L Troponin I < 0.017 (0.000-0.056) ng/mL Total Protein 7.4 (6.4-8.2) g/dL Albumin 3.6 (3.4-5.0) g/dL Globulin 3.8 Albumin/Globulin Ratio 0.9 - Re-Assessments/Exams Free Text/Narrative Re-Assessment/Exam: 07/14/20 23:46 results discussed with pt who is good now and ready to go home. states used to take lorazapam for anxiety. Departure - Departure Time of Disposition: 23:46 Disposition: Home, Self-Care 01 Condition: Good Clinical Impression: Atypical chest pain, Anxiety Forms: ED Department Discharge Additional Instructions: 1) follow up at clinic rx given; ativan 0.5mg bid for anxiety x 6 Sepsis Event Note (ED) - Evaluation Sepsis Screening Result: No Definite Risk - Focused Exam Vital Signs: Vital Signs Temp Pulse Resp BP Pulse Ox 07/14/20 22:50 36.8 C 85 18 154/70 H 94 L - My Orders Last 24 Hours: My Active Orders 07/14/20 22:55 EKG 12 Lead [EKG Documentation Completion] [RC] URGENT - Assessment/Plan Last 24 Hours: My Active Orders 07/14/20 22:55 EKG 12 Lead [EKG Documentation Completion] [RC] URGENT
[2020-07-14 23:22] LABS: ANION GAP 12.6 mEq/L (7-13); CHLORIDE,CL 104 mmol/L (98-107); SODIUM,NA 140 mmol/L (136-145)
[2020-07-14] MEDS ORDERED: LORazepam 1 MG Tab ONE (23:56)
== END 2020-07-15 00:05 | disposition home or self-care (01) ==
LOC: DL.ED 22:47
DX: F41.9 Anxiety disorder, unspecified (principal); I25.10 Atherosclerotic heart disease of native coronary artery without angina pectoris; I10 Essential (primary) hypertension; I25.2 Old myocardial infarction; J44.9 Chronic obstructive pulmonary disease, unspecified; K21.9 Gastro-esophageal reflux disease without esophagitis; M19.90 Unspecified osteoarthritis, unspecified site; F32.9 Major depressive disorder, single episode, unspecified; E11.9 Type 2 diabetes mellitus without complications; E03.9 Hypothyroidism, unspecified; Z79.4 Long term (current) use of insulin; Z79.899 Other long term (current) drug therapy; Z88.8 Allergy status to other drugs, medicaments and biological substances; Z88.0 Allergy status to penicillin
CPT/HCPCS: 36415; 71045; 80053; 84484; 85025; 93005; 93010; 99283; 99285-25; A9270-GY

== ENCOUNTER 2020-09-14 14:16 | Emergency (ER) | payer BC, MEDICAID ==
[2020-09-14 14:50] VITALS: BP 136/71; PULSE 74
--- NOTE | 2020-09-14 15:04 | EDM.PDOC ---
ED HPI GENERAL MEDICAL PROBLEM - General Chief Complaint: Skin Complaint Stated Complaint: INFECTED BOIL ON STOMACH Time Seen by Provider: 09/14/20 15:04 Source of Information: Reports: Patient, RN, RN Notes Reviewed History Limitations: Reports: No Limitations - History of Present Illness INITIAL COMMENTS - FREE TEXT/NARRATIVE: Pt is a 50 year old male who presents to ER with c/o draining abscess to the left lower abdomen. He states he has been self medicating for the area for the past few days. He states this began as an ingrown hair. Patient states he has had MRSA in the past. He denies fever, chills, N/V/D, or any other sx. Onset: Gradual - Related Data Allergies Allergy/AdvReac Type Severity Reaction Status Date / Time insulin detemir Allergy Anaphylactic Verified 09/14/20 14:58 [From Levemir] Shock Penicillins Allergy Shortness Verified 09/14/20 14:58 of Breath pseudoephedrine Allergy Swelling Verified 09/14/20 14:58 Home Meds: Home Meds Aspirin 81 mg PO DAILY 05/06/14 [History] Insulin Glarg,Human.Rec.Analog [Lantus Solostar] 68 units SQ ACBREAKFAST 05/06/14 [History] metFORMIN [Glucophage] 1,000 mg PO DAILY 05/06/14 [History] Fluticasone Propionate [Flonase] 1 spray NASBOTH DAILY 06/08/14 [History] Nitroglycerin 1 tab SL ASDIRECTED PRN 06/08/14 [History] lisinopriL [Prinivil] 20 mg PO DAILY 06/08/14 [History] Hydrocortisone Acetate [Anusol-Hc] 1 supp RECTAL BID PRN 01/11/16 [History] Ipratropium [Atrovent] 1 vial INH Q4H PRN 01/11/16 [History] Multivitamin with Minerals [Multiple Vitamin] 1 tab PO DAILY 01/11/16 [History] Pantoprazole [Protonix] 40 mg PO DAILY 01/11/16 [History] Clobetasol [Clobetasol 0.05%] 1 applic TOP ASDIRECTED PRN 01/21/18 [History] Saxagliptin HCl [Onglyza] 5 mg PO DAILY 01/21/18 [History] levalbuterol HCL [Xopenex] 1 vial INH Q6H PRN 01/21/18 [History] Budesonide [Pulmicort] 0.5 mg IH BID #30 ml 09/30/18 [Rx] Budesonide/Formoterol Fumarate [Symbicort 160-4.5 Mcg Inhaler] 2 puff IH DAILY 09/30/18 [History] Levothyroxine Sodium [Synthroid] 25 mcg PO DAILY 08/19/19 [History] Rosuvastatin [Crestor] 5 mg PO DAILY 02/26/20 [History] Past Medical History - Past Health History Medical/Surgical History: Denies Medical/Surgical History HEENT History: Reports: Impaired Vision, Other (See Below) Other HEENT History: Wears corrective lenses Cardiovascular History: Reports: Aneurysm, CAD, High Cholesterol, Hypertension, [place] Respiratory History: Reports: Asthma, COPD, Sleep Apnea Other Respiratory History: PFT COMPLETED Gastrointestinal History: Reports: GERD, GI Bleed, Hemorrhoids, Other (See Below) Other Gastrointestinal History: Stomach ulcer Genitourinary History: Reports: None Musculoskeletal History: Reports: Arthritis Other Musculoskeletal History: RIGHT CLAVICLE Neurological History: Reports: Other (See Below) Other Neuro History: TRIGEMINAL NEURALGIA Psychiatric History: Reports: Anxiety, Depression Endocrine/Metabolic History: Reports: Diabetes, Type II, Hyperthyroidism, Hypothyroidism, Obesity/BMI 30+ Hematologic History: Reports: Iron Deficiency Immunologic History: Reports: None Oncologic (Cancer) History: Reports: Lung 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 Dermatologic History: Reports: Eczema - Infectious Disease History Infectious Disease History: Reports: MRSA Other Infectious Disease History: ROTO VIRUS ; MRSA TO ELBOW - Past Surgical History Head Surgeries/Procedures: Reports: None HEENT Surgical History: Reports: Myringotomy w Tube(s), Tonsillectomy Cardiovascular Surgical History: Reports: Other (See Below) Other Cardiovascular Surgeries/Procedures: Angiogram (2) Respiratory Surgical History: Reports: None GI Surgical History: Reports: Colonoscopy, EGD Male Surgical History: Reports: None Endocrine Surgical History: Reports: None Neurological Surgical History: Reports: None Musculoskeletal Surgical History: Reports: Arthroscopic Knee, Shoulder Surgery, Other (See Below) Other Musculoskeletal Surgeries/Procedures:: Torn ACL Oncologic Surgical History: Reports: None Dermatological Surgical History: Reports: None Social & Family History - Family History Family Medical History: No Pertinent Family History - Tobacco Use Tobacco Use Status *Q: Never Tobacco User - Caffeine Use Caffeine Use: Reports: Soda Other Caffeine Use: occassional coffee (DECAF) - Recreational Drug Use Recreational Drug Use: No - Living Situation & Occupation Living situation: Reports: with Family Occupation: Employed ED ROS GENERAL - Review of Systems Review Of Systems: Comprehensive ROS is negative, except as noted in HPI. ED EXAM, SKIN/RASH Exam: See Below Exam Limited By: No Limitations General Appearance: Alert, WD/WN, No Apparent Distress Eye Exam: Bilateral Eye: EOMI, Normal Inspection Ears: Normal External Exam, Hearing Grossly Normal Nose: Normal Inspection Throat/Mouth: Normal Inspection, Normal Voice, No Airway Compromise Head: Atraumatic, Normocephalic Neck: Normal Inspection, Supple, Non-Tender, Full Range of Motion Respiratory/Chest: No Respiratory Distress, Lungs Clear, Normal Breath Sounds, No Accessory Muscle Use, Chest Non-Tender Cardiovascular: Normal Peripheral Pulses, Regular Rate, Rhythm, No Edema, No Gallop, No JVD, No Murmur, No Rub Peripheral Pulses: 2+: Radial (L), Radial (R) GI/Abdominal: Normal Bowel Sounds, Soft, Non-Tender (Male) Exam: Deferred Rectal (Males) Exam: Deferred Back Exam: Normal Inspection, Full Range of Motion, NT Extremities: Normal Inspection, Normal Range of Motion, Non-Tender, No Pedal Edema, Normal Capillary Refill Neurological: Alert, Oriented, CN II-XII Intact, Normal Cognition, Normal Gait, Normal Reflexes, No Motor/Sensory Deficits Psychiatric: Normal Affect, Normal Mood Skin: Warm, Dry, Normal Color, No Rash, Wound/Incision (abscess open and draining LLQ) Associated features: Warmth, Tenderness, Induration Course - Vital Signs Last Recorded V/S: Last Vital Signs Temp 98.2 F 09/14/20 14:49 Pulse 74 09/14/20 14:49 Resp 18 09/14/20 14:49 BP 136/71 09/14/20 14:49 Pulse Ox 95 09/14/20 14:49 - Orders/Labs/Meds Orders: Active Orders 24 hr Category Date Time Status CULTURE WOUND [RM] Urgent Lab 09/14/20 15:02 Ordered Meds: Medications Discontinued Medications Generic Name Dose Route Start Last Admin Trade Name Freq PRN Reason Stop Dose Admin Mupirocin 1 gm 09/14/20 15:08 Bactroban Oint TOP 09/14/20 15:09 ONETIME ONE Departure - Departure Time of Disposition: 15:16 Disposition: Home, Self-Care 01 Condition: Good Clinical Impression: Abscess - Discharge Information *PRESCRIPTION DRUG MONITORING PROGRAM REVIEWED*: No *COPY OF PRESCRIPTION DRUG MONITORING REPORT IN PATIENT DANIELLE: No Instructions: Skin Abscess, [id number] Forms: ED Department Discharge Additional Instructions: RX: Bactroban, Bactrim May use Tylenol and/or Ibuprofen as directed Follow up with your primary care facility if no improvement Sepsis Event Note (ED) - Evaluation Sepsis Screening Result: No Definite Risk - Focused Exam Vital Signs: Vital Signs Temp Pulse Resp BP Pulse Ox 09/14/20 14:49 98.2 F 74 18 136/71 95 - My Orders Last 24 Hours: My Active Orders 09/14/20 15:02 CULTURE WOUND [RM] Urgent - Assessment/Plan Last 24 Hours: My Active Orders 09/14/20 15:02 CULTURE WOUND [RM] Urgent
[2020-09-14] MEDS ORDERED: Mupirocin Oint 22 GM Tube TOP ONE (15:08)
== END 2020-09-14 15:29 | disposition home or self-care (01) ==
LOC: DL.ED 14:16
DX: L02.211 Cutaneous abscess of abdominal wall (principal); I25.10 Atherosclerotic heart disease of native coronary artery without angina pectoris; E78.00 Pure hypercholesterolemia, unspecified; I10 Essential (primary) hypertension; I25.2 Old myocardial infarction; J44.9 Chronic obstructive pulmonary disease, unspecified; K21.9 Gastro-esophageal reflux disease without esophagitis; M19.90 Unspecified osteoarthritis, unspecified site; E11.9 Type 2 diabetes mellitus without complications; E03.9 Hypothyroidism, unspecified; E66.9 Obesity, unspecified; Z68.41 Body mass index [BMI] 40.0-44.9, adult; Z79.4 Long term (current) use of insulin; Z88.7 Allergy status to serum and vaccine; Z88.0 Allergy status to penicillin; Z88.8 Allergy status to other drugs, medicaments and biological substances; Z79.899 Other long term (current) drug therapy; Z79.82 Long term (current) use of aspirin
CPT/HCPCS: 87070; 87077; 87186; 99283; A9270-GY

== ENCOUNTER 2020-12-04 06:35 | Emergency (ER) | payer BC, MEDICAID, OTHER ==
[2020-12-04 07:03] VITALS: BP 135/63; PULSE 76
[2020-12-04 07:58] LABS: CHLORIDE,CL 106 mmol/L (98-107); SODIUM,NA 141 mmol/L (136-145)
--- NOTE | 2020-12-04 08:08 | CR ---
PROCEDURE INFORMATION: Exam: XR Chest Exam date and time: 12/04/2020 7:50 AM Age: 50 years old Clinical indication: Shortness of breath; HX asthma and copd TECHNIQUE: Imaging protocol: XR of the chest Views: 2 views. COMPARISON: CR Chest 1V Frontal 07/14/2020 11:08 PM FINDINGS: Lungs: Clear lungs. Pleural spaces: No pneumothorax. No sizable pleural effusion. Heart/Mediastinum: No cardiomegaly. Bones/joints: Unremarkable. IMPRESSION: Clear lungs.
--- NOTE | 2020-12-04 08:14 | EDM.PDOC ---
ED HPI GENERAL MEDICAL PROBLEM - General Chief Complaint: Respiratory Problem Stated Complaint: BREATHING ISSUES Time Seen by Provider: 12/04/20 07:00 Source of Information: Reports: Patient, RN, RN Notes Reviewed History Limitations: Reports: No Limitations - History of Present Illness INITIAL COMMENTS - FREE TEXT/NARRATIVE: Patient presents to the ED via personal vehicle with complaints of shortness of breath. The patient attests to a history of asthma and COPD for which he takes Spiriva BID and Albuterol PRN. Additionally, he uses a CPap machine every night. He states he has noted an increase in shortness of breath late at night after he has been in bed sleeping for several hours; this has been progressively worsening over the past week. He notes this feeling subsides as he gets up and moves around. He denies recent illness, fever, shaking chills, chest pain, dyspepsia, vomiting, or diarrhea. The patient does report chest tightness and occasional nausea. The patient was seen at [facility] in [place] about six days ago for similar symptoms; his medications were not changed but following a CT chest he was referred to pulmonology. He states his appointment with pulmonology is set for January 06. He denies a history of smoking but notes he worked in the local [employer] for many years and was subsequently exposed to second hand smoke. He denies alcohol or recreational drug use. - Related Data Allergies Allergy/AdvReac Type Severity Reaction Status Date / Time insulin detemir Allergy Anaphylactic Verified 12/04/20 07:04 [From Levemir] Shock Penicillins Allergy Shortness Verified 12/04/20 07:04 of Breath pseudoephedrine Allergy Swelling Verified 12/04/20 07:04 Home Meds: Home Meds Aspirin 81 mg PO DAILY 05/06/14 [History] Insulin Glarg,Human.Rec.Analog [Lantus Solostar] 68 units SQ ACBREAKFAST 05/06/14 [History] metFORMIN [Glucophage] 1,000 mg PO DAILY 05/06/14 [History] Fluticasone Propionate [Flonase] 1 spray NASBOTH DAILY 06/08/14 [History] Nitroglycerin 1 tab SL ASDIRECTED PRN 06/08/14 [History] lisinopriL [Prinivil] 20 mg PO DAILY 06/08/14 [History] Hydrocortisone Acetate [Anusol-Hc] 1 supp RECTAL BID PRN 01/11/16 [History] Ipratropium [Atrovent] 1 vial INH Q4H PRN 01/11/16 [History] Multivitamin with Minerals [Multiple Vitamin] 1 tab PO DAILY 01/11/16 [History] Pantoprazole [Protonix] 40 mg PO DAILY 01/11/16 [History] Clobetasol [Clobetasol 0.05%] 1 applic TOP ASDIRECTED PRN 01/21/18 [History] Saxagliptin HCl [Onglyza] 5 mg PO DAILY 01/21/18 [History] levalbuterol HCL [Xopenex] 1 vial INH Q6H PRN 01/21/18 [History] Budesonide [Pulmicort] 0.5 mg IH BID #30 ml 09/30/18 [Rx] Budesonide/Formoterol Fumarate [Symbicort 160-4.5 Mcg Inhaler] 2 puff IH DAILY 09/30/18 [History] Levothyroxine Sodium [Synthroid] 25 mcg PO DAILY 08/19/19 [History] Rosuvastatin [Crestor] 5 mg PO DAILY 02/26/20 [History] Past Medical History - Past Health History Medical/Surgical History: Denies Medical/Surgical History HEENT History: Reports: Impaired Vision, Other (See Below) Other HEENT History: Wears corrective lenses Cardiovascular History: Reports: Aneurysm, CAD, High Cholesterol, Hypertension, [place] Respiratory History: Reports: Asthma, COPD, Sleep Apnea Other Respiratory History: PFT COMPLETED Gastrointestinal History: Reports: GERD, GI Bleed, Hemorrhoids, Other (See Below) Other Gastrointestinal History: Stomach ulcer Genitourinary History: Reports: None Musculoskeletal History: Reports: Arthritis Other Musculoskeletal History: RIGHT CLAVICLE Neurological History: Reports: Other (See Below) Other Neuro History: TRIGEMINAL NEURALGIA Psychiatric History: Reports: Anxiety, Depression Endocrine/Metabolic History: Reports: Diabetes, Type II, Hyperthyroidism, Hypothyroidism, Obesity/BMI 30+ Hematologic History: Reports: Iron Deficiency Immunologic History: Reports: None Oncologic (Cancer) History: Reports: Lung 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 Dermatologic History: Reports: Eczema - Infectious Disease History Infectious Disease History: Reports: MRSA Other Infectious Disease History: ROTO VIRUS ; MRSA TO ELBOW - Past Surgical History Head Surgeries/Procedures: Reports: None HEENT Surgical History: Reports: Myringotomy w Tube(s), Tonsillectomy Cardiovascular Surgical History: Reports: Other (See Below) Other Cardiovascular Surgeries/Procedures: Angiogram (2) Respiratory Surgical History: Reports: None GI Surgical History: Reports: Colonoscopy, EGD Male Surgical History: Reports: None Endocrine Surgical History: Reports: None Neurological Surgical History: Reports: None Musculoskeletal Surgical History: Reports: Arthroscopic Knee, Shoulder Surgery, Other (See Below) Other Musculoskeletal Surgeries/Procedures:: Torn ACL Oncologic Surgical History: Reports: None Dermatological Surgical History: Reports: None Social & Family History - Family History Family Medical History: No Pertinent Family History - Tobacco Use Tobacco Use Status *Q: Current Status Unknown Second Hand Smoke Exposure: No - Caffeine Use Caffeine Use: Reports: Soda Other Caffeine Use: occassional coffee (DECAF) - Recreational Drug Use Recreational Drug Use: No - Living Situation & Occupation Living situation: Reports: with Family Occupation: Employed ED ROS GENERAL - Review of Systems Review Of Systems: Comprehensive ROS is negative, except as noted in HPI. ED EXAM, GENERAL - Physical Exam Exam: See Below Exam Limited By: No Limitations General Appearance: Alert, No Apparent Distress Eye Exam: Bilateral Eye: Conjunctival Injection, EOMI, PERRL (3mm) Ears: Normal External Exam, Normal Canal, Hearing Grossly Normal Ear Exam: Left Ear: TM Dull, Other (Fluid behind TM), Bilateral Ear: Auricle Normal, Canal Normal, Erythema (Injected canals) Nose: Normal Mucosa, No Blood, Clear Rhinorrhea Throat/Mouth: Normal Voice, No Airway Compromise, Inflammation (Posterior erythema) Neck: Normal Inspection, Supple, Non-Tender, Full Range of Motion Respiratory/Chest: No Respiratory Distress, No Accessory Muscle Use, Chest Non- Tender, Decreased Breath Sounds Cardiovascular: Normal Peripheral Pulses, Regular Rate, Rhythm, No Edema, No Gallop, No JVD, No Murmur, No Rub Peripheral Pulses: 2+: Radial (L), Radial (R) GI/Abdominal: Normal Bowel Sounds, Soft, Non-Tender, No Distention, No Mass, Pelvis Stable (Male) Exam: Deferred Rectal (Males) Exam: Deferred Back Exam: Normal Inspection, Full Range of Motion Extremities: Normal Inspection, Normal Range of Motion, Non-Tender, No Pedal Edema, Normal Capillary Refill Neurological: Alert, Oriented, CN II-XII Intact, Normal Cognition, Normal Gait, No Motor/Sensory Deficits Psychiatric: Normal Affect, Normal Mood Skin Exam: Warm, Dry, Intact, Normal Color, No Rash #1 Interpretation EKG Date: 12/04/20 Time: 07:23 Rhythm: NSR Rate (Beats/Min): 62 [place]: Normal P-Wave: Present QRS: Normal ST-T: Normal QT: Normal GA/PQ Interval: 0.149 Comparison: No Change EKG Interpretation Comments: NSR; No evidence of acute myocardial ischemia Course - Vital Signs Last Recorded V/S: Last Vital Signs Temp 97.7 F 12/04/20 06:40 Pulse 76 12/04/20 06:40 Resp 18 12/04/20 06:40 BP 135/63 12/04/20 06:40 Pulse Ox 97 12/04/20 06:40 - Orders/Labs/Meds Labs: Laboratory Tests 12/04/20 12/04/20 Range/Units 07:31 07:31 WBC 7.8 (5.0-10.0) 10^3/uL RBC 4.10 L (4.6-6.2) 10^6/uL Hgb 12.5 L D (14.0-18.0) g/dL Hct 36.5 L (40.0-54.0) % MCV 89.0 (80-100) fL MCH 30.5 (27.0-34.0) pg MCHC 34.2 (33.0-35.0) g/dL Plt Count 226 (150-450) 10^3/uL Neut % (Auto) 60.6 (42.2-75.2) % Lymph % (Auto) 25.4 (20.5-50.1) % [place] % (Auto) 9.4 H (2-8) % Eos % (Auto) 4.0 H (1.0-3.0) % Baso % (Auto) 0.6 (0.0-1.0) % Sodium 141 (136-145) mmol/L Potassium 4.0 (3.5-5.1) mmol/L Chloride 106 (98-107) mmol/L Carbon Dioxide 26 (21-32) mmol/L Anion Gap 13.0 (7-13) mEq/L BUN 11 (7-18) mg/dL Creatinine 1.14 (0.70-1.30) mg/dL Est Cr Clr Drug Dosing 77.52 mL/min Estimated GFR (MDRD) > 60 BUN/Creatinine Ratio 9.6 (No establ ref range) Glucose 258 H (74-99) mg/dL Calcium 7.8 L (8.5-10.1) mg/dL Total Bilirubin 0.4 (0.2-1.0) mg/dL AST 14 L (15-37) U/L ALT 32 (16-63) U/L Alkaline Phosphatase 113 (46-116) U/L Troponin I < 0.017 (0.000-0.056) ng/mL C-Reactive Protein 0.9 (0.0-0.9) mg/dL Total Protein 6.5 (6.4-8.2) g/dL Albumin 3.0 L (3.4-5.0) g/dL Globulin 3.5 Albumin/Globulin Ratio 0.86 Meds: Medications Discontinued Medications Generic Name Dose Route Start Last Admin Trade Name Freq PRN Reason Stop Dose Admin Methylprednisolone Sodium Succinate 125 mg 12/04/20 08:40 12/04/20 08:40 Methylprednisolone Sodium Succinate 125 Mg/2 Ml Sdv IVPUSH 12/04/20 08:41 Not Given ONETIME ONE Methylprednisolone Sodium Succinate 125 mg 12/04/20 08:49 12/04/20 08:57 Methylprednisolone Sodium Succinate 125 Mg/2 Ml Sdv IM 12/04/20 08:50 125 mg ONETIME ONE Administration - Radiology Interpretation Free Text/Narrative:: [facility] Final Radiology Report Call: [phone] assistance Online chat: [email or web address] Name: TREVOR STEEN Age: 50Years M Date: 12/04/2020 SSN: -- : 1970 Study: CR CHEST 2V Requesting Physician: Yeny Low Images: 2 Addl Studies: Provided Clinical History: Shortness of breath; Hx asthma and COPD Contrast: Contrast Medium: Contrast Amount: Contrast Method: CONFIDENTIALITY STATEMENT This report is intended only for use by the referring physician, and only in accordance with law. If you received this in error, call [phone]. Page 1 of 1 PROCEDURE INFORMATION: Exam: XR Chest Exam date and time: 12/04/2020 7:50 AM Age: 50 years old Clinical indication: Shortness of breath; HX asthma and copd TECHNIQUE: Imaging protocol: XR of the chest Views: 2 views. COMPARISON: CR Chest 1V Frontal 07/14/2020 11:08 PM FINDINGS: Lungs: Clear lungs. Pleural spaces: No pneumothorax. No sizable pleural effusion. Heart/Mediastinum: No cardiomegaly. Bones/joints: Unremarkable. IMPRESSION: Clear lungs. Thank you for allowing us to participate in the care of your patient. Dictated and Authenticated by: Henrique Berumen MD 12/04/2020 8:08 AM Central Time ([place] & [place]) - Re-Assessments/Exams Free Text/Narrative Re-Assessment/Exam: 12/05/20 CXR unremarkable for acute processes; no indication of infection, effusion, or edema. Troponin WNL, EKG NSR. Given length of symptoms patient has essentially r/o myocardial ischemia as cause for shortness of breath. Discussed findings of examination, lab work, and imaging with patient. Will treat acute shortness of breath with prednisone burst. Patient encouraged to reach out to pulmonology for sooner appointment date given worsening symptoms. Red flag signs and symptoms which would warrant reevaluation reviewed. Patient verbalized understanding and agreement with the plan of care. Departure - Departure Time of Disposition: 08:37 Disposition: Home, Self-Care 01 Condition: Good Clinical Impression: Asthma, Shortness of breath COPD (chronic obstructive pulmonary disease) Qualifiers: COPD type: chronic bronchitis Chronic bronchitis type: simple Qualified Code(s): J41.0 - Simple chronic bronchitis Hyperglycemia due to type 2 diabetes mellitus Qualifiers: Diabetes mellitus recovery auditor insulin use: without recovery auditor use Qualified Code(s): E11.65 - Type 2 diabetes mellitus with hyperglycemia - Discharge Information *PRESCRIPTION DRUG MONITORING PROGRAM REVIEWED*: Not Applicable *COPY OF PRESCRIPTION DRUG MONITORING REPORT IN PATIENT DANIELLE: Not Applicable Instructions: Shortness of Breath, Adult, [id number], Chronic Obstructive Pulmonary Disease, [id number] Referrals: Tl Davis MD [Primary Care Provider] - Forms: ED Department Discharge Additional Instructions: Rx: Prednisone 1.) Continue with previously prescribed medications. 2.) Reach out to admissions coordinator to ask about moving previously scheduled appointment up. 3.) Start prednisone tomorrow as you received a dose today in the emergency department. Sepsis Event Note (ED) - Evaluation Sepsis Screening Result: No Definite Risk
[2020-12-04] MEDS ORDERED: methylPREDNISolone Sodium Succinate 125 MG/2 ML SDV IVPUSH ONE (08:40)
[2020-12-04] MEDS ORDERED: methylPREDNISolone Sodium Succinate 125 MG/2 ML SDV IM ONE (08:49)
== END 2020-12-04 09:20 | disposition home or self-care (01) ==
LOC: DL.ED 06:35
DX: J41.0 Simple chronic bronchitis (principal); M19.90 Unspecified osteoarthritis, unspecified site; E05.90 Thyrotoxicosis, unspecified without thyrotoxic crisis or storm; I25.10 Atherosclerotic heart disease of native coronary artery without angina pectoris; E78.00 Pure hypercholesterolemia, unspecified; I10 Essential (primary) hypertension; I25.2 Old myocardial infarction; E11.65 Type 2 diabetes mellitus with hyperglycemia; K21.9 Gastro-esophageal reflux disease without esophagitis; Z88.8 Allergy status to other drugs, medicaments and biological substances; Z88.0 Allergy status to penicillin; Z79.82 Long term (current) use of aspirin; Z79.4 Long term (current) use of insulin; Z79.899 Other long term (current) drug therapy
CPT/HCPCS: 36415; 71046; 80053; 84484; 85025; 86140; 93005; 93010; 96372; 99284; 99285; J2930

== ENCOUNTER 2020-12-18 17:03 | Emergency (ER) | payer MEDICAID ==
[2020-12-18 18:46] VITALS: BP 136/80; PULSE 106
[2020-12-18 19:23] LABS: CORONAVIRUS COVID-19 NAA NEGATIVE (NEGATIVE)
--- NOTE | 2020-12-18 20:04 | EDM.PDOC ---
ED HPI GENERAL MEDICAL PROBLEM - General Chief Complaint: ENT Problem Stated Complaint: SINUS INF Time Seen by Provider: 12/18/20 18:17 Source of Information: Reports: Patient, Old Records, RN, RN Notes Reviewed History Limitations: Reports: No Limitations - History of Present Illness INITIAL COMMENTS - FREE TEXT/NARRATIVE: Patient presents to the ED via personal vehicle with complaints of sinus pain, fever, and shaking chills. The patient reports his sinus pain has been ongoing for about four weeks. He characterizes it as an ache to his bilateral maxillary and frontal sinuses which worsens when his head is in a dependent position. Additionally, he has been experiencing post-nasal drip and subsequent cough. He states his fever began two days ago with a TMax of 101. He has been taking Flonase, two sprays BID as well as yamil pots daily with [id number] improvement in symptoms. - Related Data Allergies Allergy/AdvReac Type Severity Reaction Status Date / Time insulin detemir Allergy Anaphylactic Verified 12/20/20 12:14 [From Levemir] Shock Penicillins Allergy Shortness Verified 12/20/20 12:14 of Breath pseudoephedrine Allergy Swelling Verified 12/20/20 12:14 Home Meds: Home Meds Aspirin 81 mg PO DAILY 05/06/14 [History] Insulin Glarg,Human.Rec.Analog [Lantus Solostar] 68 units SQ ACBREAKFAST 05/06/14 [History] metFORMIN [Glucophage] 1,000 mg PO DAILY 05/06/14 [History] Fluticasone Propionate [Flonase] 1 spray NASBOTH DAILY 06/08/14 [History] Nitroglycerin 1 tab SL ASDIRECTED PRN 06/08/14 [History] lisinopriL [Prinivil] 20 mg PO DAILY 06/08/14 [History] Hydrocortisone Acetate [Anusol-Hc] 1 supp RECTAL BID PRN 01/11/16 [History] Ipratropium [Atrovent] 1 vial INH Q4H PRN 01/11/16 [History] Multivitamin with Minerals [Multiple Vitamin] 1 tab PO DAILY 01/11/16 [History] Pantoprazole [Protonix] 40 mg PO DAILY 01/11/16 [History] Clobetasol [Clobetasol 0.05%] 1 applic TOP ASDIRECTED PRN 01/21/18 [History] Saxagliptin HCl [Onglyza] 5 mg PO DAILY 01/21/18 [History] levalbuterol HCL [Xopenex] 1 vial INH Q6H PRN 01/21/18 [History] Budesonide [Pulmicort] 0.5 mg IH BID #30 ml 09/30/18 [Rx] Budesonide/Formoterol Fumarate [Symbicort 160-4.5 Mcg Inhaler] 2 puff IH DAILY 09/30/18 [History] Levothyroxine Sodium [Synthroid] 25 mcg PO DAILY 08/19/19 [History] Rosuvastatin [Crestor] 5 mg PO DAILY 02/26/20 [History] Past Medical History - Past Health History Medical/Surgical History: Denies Medical/Surgical History HEENT History: Reports: Impaired Vision, Other (See Below) Other HEENT History: Wears corrective lenses Cardiovascular History: Reports: Aneurysm, CAD, High Cholesterol, Hypertension, [place] Respiratory History: Reports: Asthma, COPD, Sleep Apnea Other Respiratory History: PFT COMPLETED Gastrointestinal History: Reports: GERD, GI Bleed, Hemorrhoids, Other (See Below) Other Gastrointestinal History: Stomach ulcer Genitourinary History: Reports: None Musculoskeletal History: Reports: Arthritis Other Musculoskeletal History: RIGHT CLAVICLE Neurological History: Reports: Other (See Below) Other Neuro History: TRIGEMINAL NEURALGIA Psychiatric History: Reports: Anxiety, Depression Endocrine/Metabolic History: Reports: Diabetes, Type II, Hyperthyroidism, Hypothyroidism, Obesity/BMI 30+ Hematologic History: Reports: Iron Deficiency Immunologic History: Reports: None Oncologic (Cancer) History: Reports: Lung 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 Dermatologic History: Reports: Eczema - Infectious Disease History Infectious Disease History: Reports: MRSA Other Infectious Disease History: ROTO VIRUS ; MRSA TO ELBOW - Past Surgical History Head Surgeries/Procedures: Reports: None HEENT Surgical History: Reports: Myringotomy w Tube(s), Tonsillectomy Cardiovascular Surgical History: Reports: Other (See Below) Other Cardiovascular Surgeries/Procedures: Angiogram (2) Respiratory Surgical History: Reports: None GI Surgical History: Reports: Colonoscopy, EGD Male Surgical History: Reports: None Endocrine Surgical History: Reports: None Neurological Surgical History: Reports: None Musculoskeletal Surgical History: Reports: Arthroscopic Knee, Shoulder Surgery, Other (See Below) Other Musculoskeletal Surgeries/Procedures:: Torn ACL Oncologic Surgical History: Reports: None Dermatological Surgical History: Reports: None Social & Family History - Family History Family Medical History: No Pertinent Family History - Tobacco Use Tobacco Use Status *Q: Never Tobacco User Second Hand Smoke Exposure: No - Caffeine Use Caffeine Use: Reports: None Other Caffeine Use: occassional coffee (DECAF) - Recreational Drug Use Recreational Drug Use: No - Living Situation & Occupation Living situation: Reports: with Family Occupation: Employed ED ROS ENT - Review of Systems Review Of Systems: Comprehensive ROS is negative, except as noted in HPI. ED EXAM, ENT - Physical Exam Exam: See Below Exam Limited By: No Limitations General Appearance: Alert, No Apparent Distress Eye Exam: Bilateral Eye: EOMI, Normal Inspection, PERRL (2mm) Ears: Normal External Exam, Normal Canal, Hearing Grossly Normal, Canal Discharge (To right ), TM Erythema (To right TM), TM Perforation (To right TM) Nose: No Blood, Clear Rhinorrhea, Nasal Tenderness, Injected Turbinates Mouth/Throat: Normal Inspection, Normal Gums, Normal Lips, Normal Oropharynx, Normal Teeth Head: Atraumatic, Normocephalic, Sinus Tenderness (To maxillary sinus, bilaterally) Neck: Normal Inspection, Supple, Non-Tender, Full Range of Motion Respiratory/Chest: No Respiratory Distress, Lungs Clear, Normal Breath Sounds, No Accessory Muscle Use, Chest Non-Tender Cardiovascular: Normal Peripheral Pulses, Regular Rate, Rhythm, No Edema, No Gallop, No JVD, No Murmur, No Rub Neurological: Alert, Oriented, CN II-XII Intact, Normal Cognition, Normal Gait, No Motor/Sensory Deficits Psychiatric: Normal Affect, Normal Mood Skin: Warm, Dry, Intact, Normal Color, No Rash Course - Vital Signs Last Recorded V/S: Last Vital Signs Temp 99 F 12/18/20 18:35 Pulse 106 H 12/18/20 18:35 Resp 20 12/18/20 18:35 BP 136/80 12/18/20 18:35 Pulse Ox 94 L 12/18/20 18:35 - Orders/Labs/Meds Labs: Laboratory Tests 12/18/20 Range/Units 18:41 Influenza Type A RNA Negative (NEGATIVE) Influenza Type B RNA Negative (NEGATIVE) SARS-CoV-2 RNA (LIV) Negative (NEGATIVE) Meds: Medications Discontinued Medications Generic Name Dose Route Start Last Admin Trade Name Freq PRN Reason Stop Dose Admin Doxycycline Monohydrate 100 mg 12/18/20 20:05 12/18/20 20:10 Doxycycline Monohydrate 100 Mg Cap PO 12/18/20 20:06 100 mg ONETIME ONE Administration - Re-Assessments/Exams Free Text/Narrative Re-Assessment/Exam: 12/18/20 COVID and influenza negative. Will treat AOM with rupture with Ciprodex and Doxycycline. Doxy to cover sinusitis, as well. Supportive cares discussed. Red flag signs and symptoms which would warrant reevaluation reviewed. Patient verbalized understanding and agreement with the plan of care. Departure - Departure Time of Disposition: 20:06 Disposition: Home, Self-Care 01 Condition: Good Clinical Impression: Acute bacterial sinusitis Ruptured tympanic membrane Qualifiers: Laterality: right Qualified Code(s): H72.91 - Unspecified perforation of tympanic membrane, right ear Barotrauma, otic Qualifiers: Encounter type: initial encounter Qualified Code(s): T70.0XXA - Otitic barotrauma, initial encounter - Discharge Information *PRESCRIPTION DRUG MONITORING PROGRAM REVIEWED*: Not Applicable *COPY OF PRESCRIPTION DRUG MONITORING REPORT IN PATIENT DANIELLE: Not Applicable Instructions: Sinusitis, Adult, [id number], Ear Barotrauma, Adult, [id number] Referrals: Tl Davis MD [Primary Care Provider] - Forms: ED Department Discharge Additional Instructions: Rx: Doxycycline Rx: Ciprodex 1.) Take all of your antibiotic until gone. 2.) Continue with previously prescribed medications, including Flonase and daily antihistamine. 3.) Follow up with your primary care provider in seven days, or sooner should you continue to experience symptoms of fever, shaking chills, and sinus pain past 48 hours of antibiotic use. Sepsis Event Note (ED) - Evaluation Sepsis Screening Result: No Definite Risk
[2020-12-18] MEDS ORDERED: Doxycycline Monohydrate 100 MG Cap PO ONE (20:05)
== END 2020-12-18 20:29 | disposition home or self-care (01) ==
LOC: DL.ED 17:03
DX: J01.80 Other acute sinusitis (principal); B96.89 Other specified bacterial agents as the cause of diseases classified elsewhere; T70.0XXA Otitic barotrauma, initial encounter; H72.91 Unspecified perforation of tympanic membrane, right ear; I25.10 Atherosclerotic heart disease of native coronary artery without angina pectoris; I10 Essential (primary) hypertension; I25.2 Old myocardial infarction; J44.9 Chronic obstructive pulmonary disease, unspecified; K21.9 Gastro-esophageal reflux disease without esophagitis; E11.9 Type 2 diabetes mellitus without complications; E78.00 Pure hypercholesterolemia, unspecified; E03.9 Hypothyroidism, unspecified; Z88.0 Allergy status to penicillin; Z88.8 Allergy status to other drugs, medicaments and biological substances; Z79.82 Long term (current) use of aspirin; Z79.4 Long term (current) use of insulin; Z79.899 Other long term (current) drug therapy; Z20.822 Contact with and (suspected) exposure to COVID-19
CPT/HCPCS: 0240U; 99283; A9270

== ENCOUNTER 2020-12-20 11:58 | Emergency (ER) | payer MEDICAID ==
[2020-12-20 12:10] VITALS: BP 141/82; PULSE 76
[2020-12-20] MEDS ORDERED: Sodium Chloride 0.9% 1,000 ML IV ONE ×2 (12:22→13:24)
--- NOTE | 2020-12-20 12:36 | EDM.PDOC ---
ED HPI GENERAL MEDICAL PROBLEM - General Chief Complaint: Gastrointestinal Problem Stated Complaint: DEHYDRATION Time Seen by Provider: 12/20/20 12:15 Source of Information: Reports: Patient History Limitations: Reports: No Limitations - History of Present Illness INITIAL COMMENTS - FREE TEXT/NARRATIVE: This 50 yo male patient reports to the ED with diarrhea over the past week. The patient reports he currently feels like a "drained battery". The patient reports his symptoms have not gotten any worse with the Doxycycline. The patient reports he has been sticking to a BRAT diet. Onset: Gradual Duration: Day(s): Location: Reports: Abdomen Quality: Reports: Other Severity: Moderate Improves with: Reports: None Worsens with: Reports: None Context: Reports: Other Associated Symptoms: Reports: Malaise - Related Data Allergies Allergy/AdvReac Type Severity Reaction Status Date / Time insulin detemir Allergy Anaphylactic Verified 12/20/20 12:14 [From Levemir] Shock Penicillins Allergy Shortness Verified 12/20/20 12:14 of Breath pseudoephedrine Allergy Swelling Verified 12/20/20 12:14 Home Meds: Home Meds Aspirin 81 mg PO DAILY 05/06/14 [History] Insulin Glarg,Human.Rec.Analog [Lantus Solostar] 68 units SQ ACBREAKFAST 05/06/14 [History] metFORMIN [Glucophage] 1,000 mg PO DAILY 05/06/14 [History] Fluticasone Propionate [Flonase] 1 spray NASBOTH DAILY 06/08/14 [History] Nitroglycerin 1 tab SL ASDIRECTED PRN 06/08/14 [History] lisinopriL [Prinivil] 20 mg PO DAILY 06/08/14 [History] Hydrocortisone Acetate [Anusol-Hc] 1 supp RECTAL BID PRN 01/11/16 [History] Ipratropium [Atrovent] 1 vial INH Q4H PRN 01/11/16 [History] Multivitamin with Minerals [Multiple Vitamin] 1 tab PO DAILY 01/11/16 [History] Pantoprazole [Protonix] 40 mg PO DAILY 01/11/16 [History] Clobetasol [Clobetasol 0.05%] 1 applic TOP ASDIRECTED PRN 01/21/18 [History] Saxagliptin HCl [Onglyza] 5 mg PO DAILY 01/21/18 [History] levalbuterol HCL [Xopenex] 1 vial INH Q6H PRN 01/21/18 [History] Budesonide [Pulmicort] 0.5 mg IH BID #30 ml 09/30/18 [Rx] Budesonide/Formoterol Fumarate [Symbicort 160-4.5 Mcg Inhaler] 2 puff IH DAILY 09/30/18 [History] Levothyroxine Sodium [Synthroid] 25 mcg PO DAILY 08/19/19 [History] Rosuvastatin [Crestor] 5 mg PO DAILY 02/26/20 [History] Past Medical History - Past Health History Medical/Surgical History: Denies Medical/Surgical History HEENT History: Reports: Impaired Vision, Other (See Below) Other HEENT History: Wears corrective lenses Cardiovascular History: Reports: Aneurysm, CAD, High Cholesterol, Hypertension, [place] Respiratory History: Reports: Asthma, COPD, Sleep Apnea Other Respiratory History: PFT COMPLETED Gastrointestinal History: Reports: GERD, GI Bleed, Hemorrhoids, Other (See Below) Other Gastrointestinal History: Stomach ulcer Genitourinary History: Reports: None Musculoskeletal History: Reports: Arthritis Other Musculoskeletal History: RIGHT CLAVICLE Neurological History: Reports: Other (See Below) Other Neuro History: TRIGEMINAL NEURALGIA Psychiatric History: Reports: Anxiety, Depression Endocrine/Metabolic History: Reports: Diabetes, Type II, Hyperthyroidism, Hypothyroidism, Obesity/BMI 30+ Hematologic History: Reports: Iron Deficiency Immunologic History: Reports: None Oncologic (Cancer) History: Reports: Lung 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 Dermatologic History: Reports: Eczema - Infectious Disease History Infectious Disease History: Reports: MRSA Other Infectious Disease History: ROTO VIRUS ; MRSA TO ELBOW - Past Surgical History Head Surgeries/Procedures: Reports: None HEENT Surgical History: Reports: Myringotomy w Tube(s), Tonsillectomy Cardiovascular Surgical History: Reports: Other (See Below) Other Cardiovascular Surgeries/Procedures: Angiogram (2) Respiratory Surgical History: Reports: None GI Surgical History: Reports: Colonoscopy, EGD Male Surgical History: Reports: None Endocrine Surgical History: Reports: None Neurological Surgical History: Reports: None Musculoskeletal Surgical History: Reports: Arthroscopic Knee, Shoulder Surgery, Other (See Below) Other Musculoskeletal Surgeries/Procedures:: Torn ACL Oncologic Surgical History: Reports: None Dermatological Surgical History: Reports: None Social & Family History - Family History Family Medical History: No Pertinent Family History - Tobacco Use Tobacco Use Status *Q: Never Tobacco User Second Hand Smoke Exposure: No - Caffeine Use Caffeine Use: Reports: Soda Other Caffeine Use: occassional coffee (DECAF) - Recreational Drug Use Recreational Drug Use: No - Living Situation & Occupation Living situation: Reports: with Family Occupation: Employed ED ROS GENERAL - Review of Systems Review Of Systems: Comprehensive ROS is negative, except as noted in HPI. ED EXAM, GI/ABD - Physical Exam Exam: See Below Exam Limited By: No Limitations General Appearance: Alert, WD/WN, Mild Distress Eyes: Bilateral: Normal Appearance, EOMI Ears: Normal External Exam, Normal Canal, Hearing Grossly Normal, Normal TMs Nose: Normal Inspection, Normal Mucosa, No Blood Throat/Mouth: Normal Inspection, Normal Lips, Normal Teeth, Normal Gums, Normal Oropharynx, Normal Voice, No Airway Compromise Head: Atraumatic, Normocephalic Neck: Normal Inspection, Supple, Non-Tender, Full Range of Motion Respiratory/Chest: No Respiratory Distress, Lungs Clear, Normal Breath Sounds, No Accessory Muscle Use, Chest Non-Tender Cardiovascular: Normal Peripheral Pulses, Regular Rate, Rhythm, No Edema, No Gallop, No JVD, No Murmur, No Rub GI/Abdominal Exam: Normal Bowel Sounds, Soft, Non-Tender, No Organomegaly, No Distention, No Abnormal Bruit, No Mass, Pelvis Stable (Male) Exam: Deferred Rectal (Males) Exam: Deferred Back Exam: Normal Inspection, Full Range of Motion, NT Extremities: Normal Inspection, Normal Range of Motion, Non-Tender, Normal Capillary Refill, No Pedal Edema Neurological: Alert, Oriented, CN II-XII Intact, Normal Cognition, Normal Gait, Normal Reflexes, No Motor/Sensory Deficits Psychiatric: Normal Affect, Normal Mood Skin Exam: Warm, Dry, Intact, Normal Color, No Rash Lymphatic: No Adenopathy Course - Vital Signs Last Recorded V/S: Last Vital Signs Temp 36.4 C 12/20/20 12:08 Pulse 76 12/20/20 12:08 Resp 18 12/20/20 12:08 BP 141/82 H 12/20/20 12:08 Pulse Ox 97 12/20/20 12:08 - Orders/Labs/Meds Orders: Active Orders 24 hr Category Date Time Status CULTURE BLOOD [BC] Stat Lab 12/20/20 12:22 Ordered Labs: Laboratory Tests 12/20/20 12/20/20 12/20/20 Range/Units 12:30 12:30 12:30 WBC 6.4 (5.0-10.0) 10^3/uL RBC 4.92 (4.6-6.2) 10^6/uL Hgb 14.4 D (14.0-18.0) g/dL Hct 43.2 (40.0-54.0) % MCV 87.8 (80-100) fL MCH 29.3 (27.0-34.0) pg MCHC 33.3 (33.0-35.0) g/dL Plt Count 216 (150-450) 10^3/uL Neut % (Auto) 61.8 (42.2-75.2) % Lymph % (Auto) 24.6 (20.5-50.1) % [place] % (Auto) 11.3 H (2-8) % Eos % (Auto) 2.0 (1.0-3.0) % Baso % (Auto) 0.3 (0.0-1.0) % Sodium 136 (136-145) mmol/L Potassium 4.2 (3.5-5.1) mmol/L Chloride 101 (98-107) mmol/L Carbon Dioxide 23 (21-32) mmol/L Anion Gap 16.2 H (7-13) mEq/L BUN 9 (7-18) mg/dL Creatinine 0.92 (0.70-1.30) mg/dL Est Cr Clr Drug Dosing 96.06 mL/min Estimated GFR (MDRD) > 60 BUN/Creatinine Ratio 9.8 (No establ ref range) Glucose 201 H (70-99) mg/dL Lactic Acid 0.8 (0.4-2.0) mmol/L Calcium 7.8 L (8.5-10.1) mg/dL Total Bilirubin 0.5 (0.2-1.0) mg/dL AST 23 (15-37) U/L ALT 39 (16-63) U/L Alkaline Phosphatase 93 (46-116) U/L Total Protein 7.1 (6.4-8.2) g/dL Albumin 3.3 L (3.4-5.0) g/dL Globulin 3.8 Albumin/Globulin Ratio 0.87 Meds: Medications Discontinued Medications Generic Name Dose Route Start Last Admin Trade Name Valerio PRN Reason Stop Dose Admin Sodium Chloride 1,000 mls @ 999 mls/hr 12/20/20 12:22 12/20/20 12:36 Normal Saline IV 12/20/20 13:22 999 mls/hr .BOLUS ONE Administration Sodium Chloride 1,000 mls @ 999 mls/hr 12/20/20 13:24 12/20/20 13:38 Normal Saline IV 12/20/20 14:24 999 mls/hr .BOLUS ONE Administration Departure - Departure Time of Disposition: 14:32 Disposition: Home, Self-Care 01 Condition: Fair Clinical Impression: Dehydration - Discharge Information *PRESCRIPTION DRUG MONITORING PROGRAM REVIEWED*: Not Applicable *COPY OF PRESCRIPTION DRUG MONITORING REPORT IN PATIENT DANIELLE: Not Applicable Instructions: Dehydration, Adult, [id number] Forms: ED Department Discharge Care Plan Goals: The patient was advised of the examination and lab results during the visit. The patient was given 2 liters of IV fluids while in the ED with symptom improvement. If the patient has any additional symptoms or concerns, the patient should either return to the emergency department or visit his primary care facility. Sepsis Event Note (ED) - Evaluation Sepsis Screening Result: No Definite Risk - Focused Exam Vital Signs: Vital Signs Temp Pulse Resp BP Pulse Ox 12/20/20 12:08 36.4 C 76 18 141/82 H 97 - My Orders Last 24 Hours: My Active Orders 12/20/20 12:22 CULTURE BLOOD [BC] Stat - Assessment/Plan Last 24 Hours: My Active Orders 12/20/20 12:22 CULTURE BLOOD [BC] Stat
[2020-12-20 12:57] LABS: ANION GAP 16.2 mEq/L (7-13); CHLORIDE,CL 101 mmol/L (98-107); SODIUM,NA 136 mmol/L (136-145)
== END 2020-12-20 14:42 | disposition home or self-care (01) ==
LOC: DL.ED 11:58
DX: E86.0 Dehydration (principal); I25.10 Atherosclerotic heart disease of native coronary artery without angina pectoris; E78.00 Pure hypercholesterolemia, unspecified; I10 Essential (primary) hypertension; I25.2 Old myocardial infarction; J44.9 Chronic obstructive pulmonary disease, unspecified; K21.9 Gastro-esophageal reflux disease without esophagitis; M19.90 Unspecified osteoarthritis, unspecified site; E11.9 Type 2 diabetes mellitus without complications; E03.9 Hypothyroidism, unspecified; E66.9 Obesity, unspecified; Z68.39 Body mass index [BMI] 39.0-39.9, adult; Z79.4 Long term (current) use of insulin; Z79.899 Other long term (current) drug therapy; Z88.8 Allergy status to other drugs, medicaments and biological substances; Z88.0 Allergy status to penicillin; Z79.82 Long term (current) use of aspirin
CPT/HCPCS: 36415; 80053; 83605; 85025; 87040; 99283; 99284; J7030

== ENCOUNTER 2021-03-03 14:49 | Emergency (ER) | payer MEDICAID, BC ==
[2021-03-03 15:17] VITALS: BP 126/69; PULSE 78
--- NOTE | 2021-03-03 15:34 | EDM.PDOC ---
ED HPI GENERAL MEDICAL PROBLEM - General Chief Complaint: Respiratory Problem Stated Complaint: BRONCHITIS Time Seen by Provider: 03/03/21 15:20 Source of Information: Reports: Patient History Limitations: Reports: No Limitations - History of Present Illness INITIAL COMMENTS - FREE TEXT/NARRATIVE: This 50 yo male patient reports to the ED with a 2 day history of a productive cough and shortness of breath. The patient reports he has asthma and used his nebulizer this morning at about 0300. The patient reports he has not used his nebulizer or his inhaler because he did not want to cover up the problem. The patient reports he has had yellowish sputum since his grandson coughed in his face. The patient reports he has been diagnosed with chronic bronchitis in the past. Onset Date: 03/02/21 Duration: Constant Location: Reports: Chest Quality: Reports: Other Severity: Mild Improves with: Reports: None Worsens with: Reports: None Context: Reports: Other Associated Symptoms: Reports: cough w sputum, Shortness of Breath - Related Data Allergies Allergy/AdvReac Type Severity Reaction Status Date / Time insulin detemir Allergy Anaphylactic Verified 03/03/21 15:09 [From Levemir] Shock Penicillins Allergy Shortness Verified 03/03/21 15:09 of Breath pseudoephedrine Allergy Swelling Verified 03/03/21 15:09 Home Meds: Home Meds Aspirin 81 mg PO DAILY 05/06/14 [History] Insulin Glarg,Human.Rec.Analog [Lantus Solostar] 68 units SQ ACBREAKFAST 05/06/14 [History] metFORMIN [Glucophage] 1,000 mg PO DAILY 05/06/14 [History] Fluticasone Propionate [Flonase] 1 spray NASBOTH DAILY 06/08/14 [History] Nitroglycerin 1 tab SL ASDIRECTED PRN 06/08/14 [History] lisinopriL [Prinivil] 20 mg PO DAILY 06/08/14 [History] Hydrocortisone Acetate [Anusol-Hc] 1 supp RECTAL BID PRN 01/11/16 [History] Ipratropium [Atrovent] 1 vial INH Q4H PRN 01/11/16 [History] Multivitamin with Minerals [Multiple Vitamin] 1 tab PO DAILY 01/11/16 [History] Pantoprazole [Protonix] 40 mg PO DAILY 01/11/16 [History] Clobetasol [Clobetasol 0.05%] 1 applic TOP ASDIRECTED PRN 01/21/18 [History] Budesonide/Formoterol Fumarate [Symbicort 160-4.5 Mcg Inhaler] 2 puff IH DAILY 09/30/18 [History] Rosuvastatin [Crestor] 10 mg PO BEDTIME 02/26/20 [History] Albuterol/Ipratropium [DuoNeb 3.0-0.5 MG/3 ML] 1 unit INH Q4H PRN 03/03/21 [History] Budesonide [Pulmicort] 0.5 mg IH BID PRN 03/03/21 [History] DULoxetine [Cymbalta] 30 mg PO DAILY 03/03/21 [History] Insulin Aspart [NovoLOG] 38 units SQ .WITH MEALS 03/03/21 [History] Levalbuterol Tartrate [Xopenex HFA] 2 puff INH ASDIRECTED PRN 03/03/21 [History] Montelukast Sodium [Singulair] 10 mg PO BEDTIME 03/03/21 [History] Past Medical History - Past Health History Medical/Surgical History: Denies Medical/Surgical History HEENT History: Reports: Impaired Vision, Other (See Below) Other HEENT History: Wears corrective lenses Cardiovascular History: Reports: Aneurysm, CAD, High Cholesterol, Hypertension, [place] Respiratory History: Reports: Asthma, COPD, Sleep Apnea Other Respiratory History: PFT COMPLETED Gastrointestinal History: Reports: GERD, GI Bleed, Hemorrhoids, Other (See Below) Other Gastrointestinal History: Stomach ulcer Genitourinary History: Reports: None Musculoskeletal History: Reports: Arthritis Other Musculoskeletal History: RIGHT CLAVICLE Neurological History: Reports: Other (See Below) Other Neuro History: TRIGEMINAL NEURALGIA Psychiatric History: Reports: Anxiety, Depression Endocrine/Metabolic History: Reports: Diabetes, Type II, Hyperthyroidism, Hypothyroidism, Obesity/BMI 30+ Hematologic History: Reports: Iron Deficiency Immunologic History: Reports: None Oncologic (Cancer) History: Reports: Lung 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 Dermatologic History: Reports: Eczema - Infectious Disease History Infectious Disease History: Reports: MRSA Other Infectious Disease History: ROTO VIRUS ; MRSA TO ELBOW - Past Surgical History Head Surgeries/Procedures: Reports: None HEENT Surgical History: Reports: Myringotomy w Tube(s), Tonsillectomy Cardiovascular Surgical History: Reports: Other (See Below) Other Cardiovascular Surgeries/Procedures: Angiogram (2) Respiratory Surgical History: Reports: None GI Surgical History: Reports: Colonoscopy, EGD Male Surgical History: Reports: None Endocrine Surgical History: Reports: None Neurological Surgical History: Reports: None Musculoskeletal Surgical History: Reports: Arthroscopic Knee, Shoulder Surgery, Other (See Below) Other Musculoskeletal Surgeries/Procedures:: Torn ACL Oncologic Surgical History: Reports: None Dermatological Surgical History: Reports: None Social & Family History - Family History Family Medical History: No Pertinent Family History - Caffeine Use Caffeine Use: Reports: Soda Other Caffeine Use: occassional coffee (DECAF) - Living Situation & Occupation Living situation: Reports: with Family Occupation: Employed ED ROS GENERAL - Review of Systems Review Of Systems: Comprehensive ROS is negative, except as noted in HPI. ED EXAM, GENERAL - Physical Exam Exam: See Below Exam Limited By: No Limitations General Appearance: Alert, WD/WN, No Apparent Distress, Obese Eye Exam: Bilateral Eye: EOMI, Normal Inspection, PERRL Ears: Normal External Exam, Normal Canal, Hearing Grossly Normal, Normal TMs Nose: Normal Inspection, Normal Mucosa, No Blood, Clear Rhinorrhea Throat/Mouth: Normal Inspection, Normal Lips, Normal Teeth, Normal Gums, Normal Oropharynx, Normal Voice, No Airway Compromise Head: Atraumatic, Normocephalic Neck: Normal Inspection, Supple, Non-Tender, Full Range of Motion Respiratory/Chest: No Respiratory Distress, No Accessory Muscle Use, Decreased Breath Sounds (right lower lobe) Cardiovascular: Normal Peripheral Pulses, Regular Rate, Rhythm, No Edema, No Gallop, No JVD, No Murmur, No Rub GI/Abdominal: Normal Bowel Sounds, Soft, Non-Tender, No Organomegaly, No Distention, No Abnormal Bruit, No Mass (Male) Exam: Deferred Rectal (Males) Exam: Deferred Back Exam: Normal Inspection, Full Range of Motion, NT Extremities: Normal Inspection, Normal Range of Motion, Non-Tender, Normal Capillary Refill, No Pedal Edema Neurological: Alert, Oriented, CN II-XII Intact, Normal Cognition, Normal Gait, Normal Reflexes, No Motor/Sensory Deficits Psychiatric: Normal Affect, Normal Mood Skin Exam: Warm, Dry, Intact, Normal Color, No Rash Lymphatic: No Adenopathy Course - Vital Signs Last Recorded V/S: Last Vital Signs Temp 98 F 03/03/21 14:59 Pulse 78 03/03/21 14:59 Resp 16 03/03/21 14:59 BP 126/69 03/03/21 14:59 Pulse Ox 97 03/03/21 14:59 - Orders/Labs/Meds Orders: Active Orders 24 hr Category Date Time Status CULTURE BLOOD [BC] Stat Lab 03/03/21 15:27 Ordered Labs: Laboratory Tests 03/03/21 03/03/21 03/03/21 Range/Units 16:11 16:11 16:11 WBC 10.8 H (5.0-10.0) 10^3/uL RBC 4.79 (4.6-6.2) 10^6/uL Hgb 14.1 (14.0-18.0) g/dL Hct 41.7 (40.0-54.0) % MCV 87.1 (80-100) fL MCH 29.4 (27.0-34.0) pg MCHC 33.8 (33.0-35.0) g/dL Plt Count 264 (150-450) 10^3/uL Neut % (Auto) 80.8 H (42.2-75.2) % Lymph % (Auto) 14.2 L (20.5-50.1) % [place] % (Auto) 4.4 (2-8) % Eos % (Auto) 0.1 L (1.0-3.0) % Baso % (Auto) 0.5 (0.0-1.0) % Sodium 135 L (136-145) mmol/L Potassium 4.1 (3.5-5.1) mmol/L Chloride 101 (98-107) mmol/L Carbon Dioxide 24 (21-32) mmol/L Anion Gap 14.1 H (7-13) mEq/L BUN 15 (7-18) mg/dL Creatinine 1.00 (0.70-1.30) mg/dL Est Cr Clr Drug Dosing 88.38 mL/min Estimated GFR (MDRD) > 60 BUN/Creatinine Ratio 15.0 (No establ ref range) Glucose 347 H (70-99) mg/dL Lactic Acid 1.1 (0.4-2.0) mmol/L Calcium 8.4 L (8.5-10.1) mg/dL Total Bilirubin 0.6 (0.2-1.0) mg/dL AST 19 (15-37) U/L ALT 35 (16-63) U/L Alkaline Phosphatase 128 H (46-116) U/L Total Protein 7.4 (6.4-8.2) g/dL Albumin 3.7 (3.4-5.0) g/dL Globulin 3.7 Albumin/Globulin Ratio 1.0 Meds: Medications Discontinued Medications Generic Name Dose Route Start Last Admin Trade Name Valerio PRN Reason Stop Dose Admin Azithromycin 500 mg 03/03/21 16:43 Azithromycin 250 Mg Tab PO 03/03/21 16:44 ONETIME ONE Departure - Departure Time of Disposition: 16:46 Disposition: Home, Self-Care 01 Condition: Fair Clinical Impression: Bronchitis - Discharge Information *PRESCRIPTION DRUG MONITORING PROGRAM REVIEWED*: Not Applicable *COPY OF PRESCRIPTION DRUG MONITORING REPORT IN PATIENT DANIELLE: Not Applicable Instructions: Acute Bronchitis, Adult, [id number] Forms: ED Department Discharge Care Plan Goals: The patient was advised of the examination, lab and x-ray results during the visit. The patient was given an oral dose of Azithromycin while in the ED. The patient was discharged with a script for Azithromycin (250 mg) #4 to take 1 by mouth daily starting tomorrow. The patient should continue to use his nebulizer machine and his inhaler as directed for temporary symptom relief. If the patient has any additional symptoms or concerns, the patient should either return to the emergency department or visit his primary care facility. Sepsis Event Note (ED) - Evaluation Sepsis Screening Result: No Definite Risk - Focused Exam Vital Signs: Vital Signs Temp Pulse Resp BP Pulse Ox 03/03/21 14:59 98 F 78 16 126/69 97 - My Orders Last 24 Hours: My Active Orders 03/03/21 15:27 CULTURE BLOOD [BC] Stat - Assessment/Plan Last 24 Hours: My Active Orders 03/03/21 15:27 CULTURE BLOOD [BC] Stat
--- NOTE | 2021-03-03 15:50 | CR ---
PROCEDURE INFORMATION: Exam: XR Chest Exam date and time: 03/03/2021 3:35 PM Age: 50 years old Clinical indication: Other: Short of breath and cough TECHNIQUE: Imaging protocol: XR of the chest. Views: 2 views. COMPARISON: CR Chest 2V 12/04/2020 7:50 AM FINDINGS: Lungs: Unremarkable. No consolidation. Pleural spaces: Unremarkable. No pleural effusion. No pneumothorax. Heart/Mediastinum: Unremarkable. No cardiomegaly. Bones/joints: Unremarkable. IMPRESSION: No acute findings.
[2021-03-03 16:37] LABS: ANION GAP 14.1 mEq/L (7-13); CHLORIDE,CL 101 mmol/L (98-107); SODIUM,NA 135 mmol/L (136-145)
[2021-03-03] MEDS: Azithromycin 250 MG Tab PO ONE (16:54)
== END 2021-03-03 16:56 | disposition home or self-care (01) ==
LOC: DL.ED 14:49
DX: J40 Bronchitis, not specified as acute or chronic (principal); I25.10 Atherosclerotic heart disease of native coronary artery without angina pectoris; E78.00 Pure hypercholesterolemia, unspecified; I10 Essential (primary) hypertension; I25.2 Old myocardial infarction; J44.9 Chronic obstructive pulmonary disease, unspecified; K21.9 Gastro-esophageal reflux disease without esophagitis; E03.9 Hypothyroidism, unspecified; M19.90 Unspecified osteoarthritis, unspecified site; Z79.899 Other long term (current) drug therapy; Z88.8 Allergy status to other drugs, medicaments and biological substances; Z88.0 Allergy status to penicillin; Z79.82 Long term (current) use of aspirin; Z79.4 Long term (current) use of insulin
CPT/HCPCS: 36415; 71046; 80053; 83605; 85025; 87040; 99283; 99285; A9270

== ENCOUNTER 2021-06-14 20:16 | Emergency (ER) | payer BC, MEDICAID ==
[2021-06-14 20:26] VITALS: BP 154/86; PULSE 85
--- NOTE | 2021-06-14 21:11 | EDM.PDOC ---
ED HPI GENERAL MEDICAL PROBLEM - General Chief Complaint: ENT Problem Stated Complaint: RIGHT SIDE EAR INFECTION Time Seen by Provider: 06/14/21 20:40 Source of Information: Reports: Patient, RN, RN Notes Reviewed History Limitations: Reports: No Limitations - History of Present Illness INITIAL COMMENTS - FREE TEXT/NARRATIVE: Dakotah is a 51 y/o male who presents to the ED via personal vehicle with complaints of dizziness and bilateral ear pressure. The patient reports his symptoms began two days ago and have maintained in that time. He states his symptoms feel similar to when he ruptured his tympanic membrane in November of 2020. He denies recent illness, fever, shaking chills, vision changes, headache, chest pain, palpitations, nausea, vomiting, or diarrhea. He does atte st to chronic shortness of breath which has not worsened with symptom onset. He has taken no medications or performed any supportive cares for his symptoms. Right Ear Pain Score (Numeric/FACES): 2 - Related Data Allergies Allergy/AdvReac Type Severity Reaction Status Date / Time insulin detemir Allergy Anaphylactic Verified 06/14/21 20:29 [From Levemir] Shock Penicillins Allergy Shortness Verified 06/14/21 20:29 of Breath pseudoephedrine Allergy Swelling Verified 06/14/21 20:29 Home Meds: Home Meds Aspirin 81 mg PO DAILY 05/06/14 [History] Insulin Glarg,Human.Rec.Analog [Lantus Solostar] 68 units SQ ACBREAKFAST 05/06/14 [History] metFORMIN [Glucophage] 1,000 mg PO DAILY 05/06/14 [History] Fluticasone Propionate [Flonase] 1 spray NASBOTH DAILY 06/08/14 [History] Nitroglycerin 1 tab SL ASDIRECTED PRN 06/08/14 [History] lisinopriL [Prinivil] 20 mg PO DAILY 06/08/14 [History] Hydrocortisone Acetate [Anusol-Hc] 1 supp RECTAL BID PRN 01/11/16 [History] Ipratropium [Atrovent] 1 vial INH Q4H PRN 01/11/16 [History] Multivitamin with Minerals [Multiple Vitamin] 1 tab PO DAILY 01/11/16 [History] Pantoprazole [Protonix] 40 mg PO DAILY 01/11/16 [History] Clobetasol [Clobetasol 0.05%] 1 applic TOP ASDIRECTED PRN 01/21/18 [History] Budesonide/Formoterol Fumarate [Symbicort 160-4.5 Mcg Inhaler] 2 puff IH DAILY 09/30/18 [History] Rosuvastatin [Crestor] 10 mg PO BEDTIME 02/26/20 [History] Albuterol/Ipratropium [DuoNeb 3.0-0.5 MG/3 ML] 1 unit INH Q4H PRN 03/03/21 [Hi story] Budesonide [Pulmicort] 0.5 mg IH BID PRN 03/03/21 [History] DULoxetine [Cymbalta] 30 mg PO DAILY 03/03/21 [History] Insulin Aspart [NovoLOG] 38 units SQ .WITH MEALS 03/03/21 [History] Levalbuterol Tartrate [Xopenex HFA] 2 puff INH ASDIRECTED PRN 03/03/21 [History] Montelukast Sodium [Singulair] 10 mg PO BEDTIME 03/03/21 [History] Past Medical History - Past Health History Medical/Surgical History: Denies Medical/Surgical History HEENT History: Reports: Impaired Vision, Other (See Below) Other HEENT History: Wears corrective lenses Cardiovascular History: Reports: Aneurysm, CAD, High Cholesterol, Hypertension, [place] Respiratory History: Reports: Asthma, Bronchitis, Recurrent, COPD, Sleep Apnea Other Respiratory History: PFT COMPLETED Gastrointestinal History: Reports: GERD, GI Bleed, Hemorrhoids, Other (See Below) Other Gastrointestinal History: Stomach ulcer Genitourinary History: Reports: None Musculoskeletal History: Reports: Arthritis Other Musculoskeletal History: RIGHT CLAVICLE Neurological History: Reports: Other (See Below) Other Neuro History: TRIGEMINAL NEURALGIA Psychiatric History: Reports: Anxiety, Depression Endocrine/Metabolic History: Reports: Diabetes, Type II, Hypothyroidism, Obesity/BMI 30+ Hematologic History: Reports: Iron Deficiency Immunologic History: Reports: None Oncologic (Cancer) History: Reports: Lung 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 Dermatologic History: Reports: Eczema - Infectious Disease History Infectious Disease History: Reports: MRSA Other Infectious Disease History: ROTO VIRUS ; MRSA TO ELBOW - Past Surgical History Head Surgeries/Procedures: Reports: None HEENT Surgical History: Reports: Myringotomy w Tube(s), Tonsillectomy Cardiovascular Surgical History: Reports: Other (See Below) Other Cardiovascular Surgeries/Procedures: Angiogram (2) Respiratory Surgical History: Reports: None GI Surgical History: Reports: Colonoscopy, EGD Male Surgical History: Reports: None Endocrine Surgical History: Reports: None Neurological Surgical History: Reports: None Musculoskeletal Surgical History: Reports: Arthroscopic Knee, Shoulder Surgery, Other (See Below) Other Musculoskeletal Surgeries/Procedures:: Torn ACL Oncologic Surgical History: Reports: None Dermatological Surgical History: Reports: None Social & Family History - Family History Family Medical History: No Pertinent Family History - Tobacco Use Tobacco Use Status *Q: Never Tobacco User Second Hand Smoke Exposure: No - Caffeine Use Caffeine Use: Reports: Soda Other Caffeine Use: occassional coffee (DECAF) - Recreational Drug Use Recreational Drug Use: No - Living Situation & Occupation Living situation: Reports: with Family Occupation: Employed ED ROS ENT - Review of Systems Review Of Systems: Comprehensive ROS is negative, except as noted in HPI. ED EXAM, ENT - Physical Exam Exam: See Below Exam Limited By: No Limitations General Appearance: Alert, No Apparent Distress Eye Exam: Bilateral Eye: EOMI, Normal Inspection, PERRL (3mm), Other (No nystagmus ) Ears: Normal External Exam, Normal Canal, Hearing Grossly Normal. No: Normal TMs (Scarring to right TM), TM Bulging, TM Dullness, TM Erythema, TM Blood, TM Fluid, TM Perforation, Cerumen Impaction Nose: Normal Inspection, Normal Mucousa, No Blood Mouth/Throat: Normal Inspection, Normal Gums, Normal Lips, Normal Oropharynx, Normal Teeth Head: Atraumatic, Normocephalic Neck: Normal Inspection, Supple, Non-Tender, Full Range of Motion. No: Lymphadenopathy (L), Lymphadenopathy (R) Respiratory/Chest: No Respiratory Distress, Lungs Clear, Normal Breath Sounds, No Accessory Muscle Use, Chest Non-Tender. No: Crackles, Rales, Rhonchi, Wheezing, Stridor Cardiovascular: Normal Peripheral Pulses, Regular Rate, Rhythm, No Edema, No Gallop, No JVD, No Murmur, No Rub GI/Abdominal: Normal Bowel Sounds, Soft Extremities: Normal Inspection, Normal Range of Motion Neurological: Alert, Oriented, CN II-XII Intact, Normal Cognition, Normal Gait, Normal Reflexes, No Motor/Sensory Deficits Psychiatric: Normal Affect, Normal Mood Skin: Warm, Dry, Intact, Normal Color, No Rash. No: Cyanosis, Jaundice, Mottled, Pallor Lymphatic: No Adenopathy Course - Vital Signs Last Recorded V/S: Last Vital Signs Temp 98.7 F 06/14/21 20:24 Pulse 85 06/14/21 20:24 Resp 18 06/14/21 20:24 BP 154/86 H 06/14/21 20:24 Pulse Ox 95 06/14/21 20:24 - Orders/Labs/Meds Labs: Laboratory Tests 06/14/21 06/14/21 06/14/21 Range/Units 21:05 21:05 21:54 WBC 9.1 (5.0-10.0) 10^3/uL RBC 4.74 (4.6-6.2) 10^6/uL Hgb 14.0 (14.0-18.0) g/dL Hct 41.6 (40.0-54.0) % MCV 87.8 (80-100) fL MCH 29.5 (27.0-34.0) pg MCHC 33.7 (33.0-35.0) g/dL Plt Count 265 (150-450) 10^3/uL Neut % (Auto) 60.9 (42.2-75.2) % Lymph % (Auto) 28.1 (20.5-50.1) % Casey % (Auto) 7.9 (2-8) % Eos % (Auto) 2.7 (1.0-3.0) % Baso % (Auto) 0.4 (0.0-1.0) % Sodium 140 (136-145) mmol/L Potassium 4.3 (3.5-5.1) mmol/L Chloride 104 (98-107) mmol/L Carbon Dioxide 28 (21-32) mmol/L Anion Gap 12.3 (7-13) mEq/L BUN 11 (7-18) mg/dL Creatinine 0.98 (0.70-1.30) mg/dL Est Cr Clr Drug Dosing 89.18 mL/min Estimated GFR (MDRD) > 60 BUN/Creatinine Ratio 11.2 (No establ ref range) Glucose 263 H (70-99) mg/dL Calcium 8.2 L (8.5-10.1) mg/dL Total Bilirubin 0.4 (0.2-1.0) mg/dL AST 10 L (15-37) U/L ALT 24 (16-63) U/L Alkaline Phosphatase 154 H (46-116) U/L C-Reactive Protein < 0.2 (0.0-0.9) mg/dL Total Protein 7.1 (6.4-8.2) g/dL Albumin 3.5 (3.4-5.0) g/dL Globulin 3.6 Albumin/Globulin Ratio 1.0 Urine Color Yellow (YELLOW) Urine Appearance Clear (CLEAR) Urine pH 7.0 (5.0-9.0) Ur Specific [place] 1.025 (1.005-1.030) Urine Protein Negative (NEGATIVE) Urine Glucose (UA) 500 H (NEGATIVE) Urine Ketones Negative (NEGATIVE) Urine Occult Blood Negative (NEGATIVE) Urine Nitrite Negative (NEGATIVE) Urine Bilirubin Negative (NEGATIVE) Urine Urobilinogen 1.0 (0.2-1.0) mg/dL Ur Leukocyte Esterase Negative (NEGATIVE) Urine Opiates Screen (NEGATIVE) Ur Oxycodone Screen (NEGATIVE) Urine Methadone Screen (NEGATIVE) Ur Barbiturates Screen (NEGATIVE) U Tricyclic Antidepress (NEGATIVE) Ur Phencyclidine Scrn (NEGATIVE) Ur Amphetamine Screen (NEGATIVE) U Methamphetamines Scrn (NEGATIVE) Urine MDMA Screen (NEGATIVE) U Benzodiazepines Scrn (NEGATIVE) Urine Cocaine Screen (NEGATIVE) U Marijuana (THC) Screen (NEGATIVE) Ethyl Alcohol < 3 (0) mg/dL 06/14/21 Range/Units 21:54 WBC (5.0-10.0) 10^3/uL RBC (4.6-6.2) 10^6/uL Hgb (14.0-18.0) g/dL Hct (40.0-54.0) % MCV (80-100) fL MCH (27.0-34.0) pg MCHC (33.0-35.0) g/dL Plt Count (150-450) 10^3/uL Neut % (Auto) (42.2-75.2) % Lymph % (Auto) (20.5-50.1) % Casey % (Auto) (2-8) % Eos % (Auto) (1.0-3.0) % Baso % (Auto) (0.0-1.0) % Sodium (136-145) mmol/L Potassium (3.5-5.1) mmol/L Chloride (98-107) mmol/L Carbon Dioxide (21-32) mmol/L Anion Gap (7-13) mEq/L BUN (7-18) mg/dL Creatinine (0.70-1.30) mg/dL Est Cr Clr Drug Dosing mL/min Estimated GFR (MDRD) BUN/Creatinine Ratio (No establ ref range) Glucose (70-99) mg/dL Calcium (8.5-10.1) mg/dL Total Bilirubin (0.2-1.0) mg/dL AST (15-37) U/L ALT (16-63) U/L Alkaline Phosphatase (46-116) U/L C-Reactive Protein (0.0-0.9) mg/dL Total Protein (6.4-8.2) g/dL Albumin (3.4-5.0) g/dL Globulin Albumin/Globulin Ratio Urine Color (YELLOW) Urine Appearance (CLEAR) Urine pH (5.0-9.0) Ur Specific [place] (1.005-1.030) Urine Protein (NEGATIVE) Urine Glucose (UA) (NEGATIVE) Urine Ketones (NEGATIVE) Urine Occult Blood (NEGATIVE) Urine Nitrite (NEGATIVE) Urine Bilirubin (NEGATIVE) Urine Urobilinogen (0.2-1.0) mg/dL Ur Leukocyte Esterase (NEGATIVE) Urine Opiates Screen Negative (NEGATIVE) Ur Oxycodone Screen Negative (NEGATIVE) Urine Methadone Screen Negative (NEGATIVE) Ur Barbiturates Screen Negative (NEGATIVE) U Tricyclic Antidepress Negative (NEGATIVE) Ur Phencyclidine Scrn Negative (NEGATIVE) Ur Amphetamine Screen Negative (NEGATIVE) U Methamphetamines Scrn Negative (NEGATIVE) Urine MDMA Screen Negative (NEGATIVE) U Benzodiazepines Scrn Negative (NEGATIVE) Urine Cocaine Screen Negative (NEGATIVE) U Marijuana (THC) Screen Negative (NEGATIVE) Ethyl Alcohol (0) mg/dL Meds: Medications Discontinued Medications Generic Name Dose Route Start Last Admin Trade Name Freq PRN Reason Stop Dose Admin Meclizine HCl 25 mg 06/14/21 22:48 06/14/21 23:00 Meclizine 12.5 Mg Tab PO 06/14/21 22:49 25 mg ONETIME ONE Administration - Re-Assessments/Exams Free Text/Narrative Re-Assessment/Exam: 06/14/21 Findings of examination and lab work reviewed with patient. Will treat dizziness with Meclizine. Patient instructed to follow up with PCP regarding today's visit. Red flag signs and symptoms which would warrant immediate reevaluation reviewed. Patient verbalized understanding and agreement with the plan of care. Departure - Departure Time of Disposition: 22:41 Disposition: Home, Self-Care 01 Condition: Fair Clinical Impression: Hyperglycemia, Episode of dizziness Ear pressure Qualifiers: Laterality: bilateral Qualified Code(s): H93.8X3 - Other specified disorders of ear, bilateral - Discharge Information *PRESCRIPTION DRUG MONITORING PROGRAM REVIEWED*: Not Applicable *COPY OF PRESCRIPTION DRUG MONITORING REPORT IN PATIENT DANIELLE: Not Applicable Instructions: Vertigo, Dizziness Forms: ED Department Discharge Additional Instructions: Rx: Meclizine 1.) Follow up with your primary care provider regarding today's visit. 2.) Continue to monitor your blood sugars. 3.) Return to the emergency department with any return of symptoms. Sepsis Event Note (ED) - Focused Exam Vital Signs: Vital Signs Temp Pulse Resp BP Pulse Ox 06/14/21 20:24 98.7 F 85 18 154/86 H 95
[2021-06-14 21:30] LABS: ANION GAP 12.3 mEq/L (7-13); CHLORIDE,CL 104 mmol/L (98-107); SODIUM,NA 140 mmol/L (136-145)
[2021-06-14 22:20] LABS: AMPHETAMINES,URINE NEGATIVE (NEGATIVE); BARBITURATES,URINE NEGATIVE (NEGATIVE); BENZODIAZEPINE,URINE NEGATIVE (NEGATIVE); MDMA (ECSTASY), URINE NEGATIVE (NEGATIVE); METHADONE,URINE NEGATIVE (NEGATIVE); METHAMPHETAMINES,URINE NEGATIVE (NEGATIVE); OPIATES,URINE NEGATIVE (NEGATIVE); OXYCODONE,URINE NEGATIVE (NEGATIVE); PHENCYCLIDINE,URINE NEGATIVE (NEGATIVE); TCA,URINE NEGATIVE (NEGATIVE)
[2021-06-14] MEDS ORDERED: Meclizine 12.5 MG Tab PO ONE (22:48)
== END 2021-06-14 23:02 | disposition home or self-care (01) ==
LOC: DL.ED 20:16
DX: H93.8X3 Other specified disorders of ear, bilateral (principal); E11.65 Type 2 diabetes mellitus with hyperglycemia; I25.10 Atherosclerotic heart disease of native coronary artery without angina pectoris; E78.00 Pure hypercholesterolemia, unspecified; I10 Essential (primary) hypertension; I25.2 Old myocardial infarction; J44.9 Chronic obstructive pulmonary disease, unspecified; K21.9 Gastro-esophageal reflux disease without esophagitis; M19.90 Unspecified osteoarthritis, unspecified site; E66.9 Obesity, unspecified; Z68.38 Body mass index [BMI] 38.0-38.9, adult; Z88.7 Allergy status to serum and vaccine; Z88.0 Allergy status to penicillin; Z88.8 Allergy status to other drugs, medicaments and biological substances; Z79.82 Long term (current) use of aspirin; Z79.4 Long term (current) use of insulin; Z79.899 Other long term (current) drug therapy
CPT/HCPCS: 36415; 80053; 80305; 80307; 81003; 85025; 86140; 99284; A9270

== ENCOUNTER 2021-06-26 14:33 | Emergency (ER) | payer BC, MEDICAID ==
[2021-06-26 15:17] VITALS: BP 144/80; PULSE 76
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
--- NOTE | 2021-06-26 16:10 | CR ---
EXAMINATION: Tibia Fibula Rt (2 views) SEX: Male AGE: 51 years CLINICAL HISTORY: 51-year-old male injured right lower extremity. No sign of pathologic skeletal lesion, long bone tibia or fibular fracture. No dislocation of the right knee. No foreign bodies. CONCLUSION: Negative exam.
--- NOTE | 2021-06-26 16:11 | CR ---
EXAMINATION: Ankle Min 3V Rt SEX: Male AGE: 51 years CLINICAL HISTORY: 51-year-old male right lower extremity and ankle injury. Interpretation: Ankle Sprain. Heel spurs. No fracture or dislocation right ankle. Bimalleolar soft tissue swelling particularly pronounced over the lateral malleolus. Homogeneous normal bone mineral density. Small ankle joint effusion. No sign of right ankle fracture or disruption of the tibiotalar mortise joint symmetry. Large heel spurs at the insertion Achilles tendon and plantar aponeurosis on the os calcis. No foreign bodies.
== END 2021-06-26 16:55 | disposition home or self-care (01) ==
LOC: DL.ED 14:33
DX: S93.401A Sprain of unspecified ligament of right ankle, initial encounter (principal); R60.0 Localized edema; I25.10 Atherosclerotic heart disease of native coronary artery without angina pectoris; E78.00 Pure hypercholesterolemia, unspecified; I10 Essential (primary) hypertension; I25.2 Old myocardial infarction; J44.9 Chronic obstructive pulmonary disease, unspecified; K21.9 Gastro-esophageal reflux disease without esophagitis; M19.90 Unspecified osteoarthritis, unspecified site; E11.9 Type 2 diabetes mellitus without complications; E66.9 Obesity, unspecified; Z68.41 Body mass index [BMI] 40.0-44.9, adult; Z88.7 Allergy status to serum and vaccine; Z88.0 Allergy status to penicillin; Z88.8 Allergy status to other drugs, medicaments and biological substances; Z79.82 Long term (current) use of aspirin; Z79.4 Long term (current) use of insulin; Z79.899 Other long term (current) drug therapy; W22.8XXA Striking against or struck by other objects, initial encounter
CPT/HCPCS: 73590-RT; 73610-RT; 99284-25

== ENCOUNTER 2021-07-23 01:19 | Emergency (ER) | payer MEDICAID ==
[2021-07-23] MEDS ORDERED: Acetaminophen 325 MG Tab PO ONE (01:33)
[2021-07-23] MEDS ORDERED: Sodium Chloride 0.9% 1,000 ML IV ONE (01:42)
[2021-07-23 01:55] VITALS: BP 149/83; PULSE 113
[2021-07-23 02:25] LABS: ANION GAP 16.2 mEq/L (7-13); CHLORIDE,CL 100 mmol/L (98-107); SODIUM,NA 137 mmol/L (136-145)
[2021-07-23 02:44] LABS: CORONAVIRUS COVID-19 NAA POSITIVE (NEGATIVE)
--- NOTE | 2021-07-23 02:54 | CR ---
PROCEDURE INFORMATION: Exam: XR Chest Exam date and time: 07/23/2021 1:12 AM Age: 51 years old Clinical indication: Fever; Additional info: Fever body aches TECHNIQUE: Imaging protocol: XR of the chest. Views: 1 view. COMPARISON: CR Chest 2V 03/03/2021 3:35 PM FINDINGS: Lungs: Unremarkable. No consolidation. Pleural spaces: Unremarkable. No pleural effusion. No pneumothorax. Heart/Mediastinum: Unremarkable. No cardiomegaly. Bones/joints: Unremarkable. IMPRESSION: No acute disease.
--- NOTE | 2021-07-23 03:39 | EDM.PDOC ---
ED HPI GENERAL MEDICAL PROBLEM - General Chief Complaint: Fever Stated Complaint: CHEST PAIN, HEARTRATE 116 Time Seen by Provider: 07/23/21 01:55 CDT Source of Information: Reports: Patient, Family, RN History Limitations: Reports: No Limitations - History of Present Illness INITIAL COMMENTS - FREE TEXT/NARRATIVE: ED with c/o fever body aches, right ear pain and some intermittent SOB. Onset sx today, Had first COVID vaccine on . No known exposure. No nausea or vomiting. No diarrhea. No chest pain but on BP cuff at home HR 1 00-110 - Related Data Allergies Allergy/AdvReac Type Severity Reaction Status Date / Time insulin detemir Allergy Anaphylactic Verified 07/23/21 02:12 [From Levemir] Shock Penicillins Allergy Shortness Verified 07/23/21 02:12 of Breath pseudoephedrine Allergy Swelling Verified 07/23/21 02:12 Home Meds: Home Meds Aspirin 81 mg PO DAILY 05/06/14 [History] Insulin Glarg,Human.Rec.Analog [Lantus Solostar] 68 units SQ ACBREAKFAST 05/06/14 [History] metFORMIN [Glucophage] 1,000 mg PO DAILY 05/06/14 [History] Fluticasone Propionate [Flonase] 1 spray NASBOTH DAILY 06/08/14 [History] Nitroglycerin 1 tab SL ASDIRECTED PRN 06/08/14 [History] lisinopriL [Prinivil] 20 mg PO DAILY 06/08/14 [History] Hydrocortisone Acetate [Anusol-Hc] 1 supp RECTAL BID PRN 01/11/16 [History] Ipratropium [Atrovent] 1 vial INH Q4H PRN 01/11/16 [History] Multivitamin with Minerals [Multiple Vitamin] 1 tab PO DAILY 01/11/16 [History] Pantoprazole [Protonix] 40 mg PO DAILY 01/11/16 [History] Clobetasol [Clobetasol 0.05%] 1 applic TOP ASDIRECTED PRN 01/21/18 [History] Budesonide/Formoterol Fumarate [Symbicort 160-4.5 Mcg Inhaler] 2 puff IH DAILY 09/30/18 [History] Rosuvastatin [Crestor] 10 mg PO BEDTIME 02/26/20 [History] Albuterol/Ipratropium [DuoNeb 3.0-0.5 MG/3 ML] 1 unit INH Q4H PRN 03/03/21 [History] Budesonide [Pulmicort] 0.5 mg IH BID PRN 03/03/21 [History] DULoxetine [Cymbalta] 30 mg PO DAILY 03/03/21 [History] Insulin Aspart [NovoLOG] 38 units SQ .WITH MEALS 03/03/21 [History] Levalbuterol Tartrate [Xopenex HFA] 2 puff INH ASDIRECTED PRN 03/03/21 [History] Montelukast Sodium [Singulair] 10 mg PO BEDTIME 03/03/21 [History] Past Medical History - Past Health History Medical/Surgical History: Denies Medical/Surgical History HEENT History: Reports: Impaired Vision, Other (See Below) Other HEENT History: Wears corrective lenses Cardiovascular History: Reports: Aneurysm, CAD, High Cholesterol, Hypertension, MS Respiratory History: Reports: Asthma, Bronchitis, Recurrent, COPD, Sleep Apnea Other Respiratory History: PFT COMPLETED Gastrointestinal History: Reports: GERD, GI Bleed, Hemorrhoids, Other (See Below) Other Gastrointestinal History: Stomach ulcer Genitourinary History: Reports: None Musculoskeletal History: Reports: Arthritis Other Musculoskeletal History: RIGHT CLAVICLE Neurological History: Reports: Other (See Below) Other Neuro History: TRIGEMINAL NEURALGIA Psychiatric History: Reports: Anxiety, Depression Endocrine/Metabolic History: Reports: Diabetes, Type II, Hypothyroidism, Obesity/BMI 30+ Hematologic History: Reports: Iron Deficiency Immunologic History: Reports: None Oncologic (Cancer) History: Reports: Lung 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 Dermatologic History: Reports: Eczema - Infectious Disease History Infectious Disease History: Reports: MRSA Other Infectious Disease History: ROTO VIRUS ; MRSA TO ELBOW - Past Surgical History Head Surgeries/Procedures: Reports: None HEENT Surgical History: Reports: Myringotomy w Tube(s), Tonsillectomy Cardiovascular Surgical History: Reports: Other (See Below) Other Cardiovascular Surgeries/Procedures: Angiogram (2) Respiratory Surgical History: Reports: None GI Surgical History: Reports: Colonoscopy, EGD Male Surgical History: Reports: None Endocrine Surgical History: Reports: None Neurological Surgical History: Reports: None Musculoskeletal Surgical History: Reports: Arthroscopic Knee, Shoulder Surgery, Other (See Below) Other Musculoskeletal Surgeries/Procedures:: Torn ACL Oncologic Surgical History: Reports: None Dermatological Surgical History: Reports: None Social & Family History - Family History Family Medical History: No Pertinent Family History - Tobacco Use Tobacco Use Status *Q: Never Tobacco User Second Hand Smoke Exposure: Yes - Caffeine Use Caffeine Use: Reports: Soda Other Caffeine Use: occassional coffee (DECAF) - Living Situation & Occupation Living situation: Reports: with Family Occupation: Employed ED ROS ENT - Review of Systems Review Of Systems: Comprehensive ROS is negative, except as noted in HPI. ED EXAM, ENT - Physical Exam Exam: See Below Exam Limited By: No Limitations General Appearance: Alert, Mild Distress, Obese Eye Exam: Bilateral Eye: EOMI, PERRL Ears: Normal External Exam, TM Fluid (right). No: TM Erythema Nose: Normal Inspection Mouth/Throat: Normal Inspection Head: Atraumatic Neck: Normal Inspection, Supple, Non-Tender, Full Range of Motion Respiratory/Chest: No Respiratory Distress, Lungs Clear, Normal Breath Sounds Cardiovascular: Normal Peripheral Pulses, Regular Rate, Rhythm, Tachycardia (100-110) GI/Abdominal: Normal Bowel Sounds, Soft Back: Normal Inspection, Full Range of Motion Extremities: Normal Inspection, Normal Range of Motion Neurological: Alert, Oriented, Normal Cognition Skin: Warm, Dry, Intact, No Rash #1 Interpretation EKG Date: 07/23/21 Time: 01:42 Rhythm: Other (sinus tach) Rate (Beats/Min): 105 Comparison: No Change EKG Interpretation Comments: Sinus Tachycardia #2 Interpretation EKG Date: 07/23/21 Time: 04:05 Rhythm: Other (sinus tachycardia) Rate (Beats/Min): 110 Comparison: No Change Course - Vital Signs Last Recorded V/S: Last Vital Signs Temp 101.8 F H 07/23/21 01:51 CDT Pulse 113 H 07/23/21 01:51 CDT Resp 20 07/23/21 01:51 CDT BP 149/83 H 07/23/21 01:51 CDT Pulse Ox 92 L 07/23/21 01:51 CDT - Orders/Labs/Meds Orders: Active Orders 24 hr Category Date Time Status CULTURE BLOOD [BC] Stat Lab 07/23/21 01:40 Results Labs: Laboratory Tests 07/23/21 07/23/21 07/23/21 Range/Units 01:40 [employer]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 01:40 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 01:40 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 WBC 6.7 (5.0-10.0) 10^3/uL RBC 4.72 (4.6-6.2) 10^6/uL Hgb 13.9 L (14.0-18.0) g/dL Hct 41.9 (40.0-54.0) % MCV 88.8 (80-100) fL MCH 29.4 (27.0-34.0) pg MCHC 33.2 (33.0-35.0) g/dL Plt Count 264 (150-450) 10^3/uL Neut % (Auto) 74.0 (42.2-75.2) % Lymph % (Auto) 11.4 L (20.5-50.1) % [place] % (Auto) 12.7 H (2-8) % Eos % (Auto) 1.6 (1.0-3.0) % Baso % (Auto) 0.3 (0.0-1.0) % D-Dimer, Quantitative (0-400) ng/mL Sodium 137 (136-145) mmol/L Potassium 4.2 (3.5-5.1) mmol/L Chloride 100 (98-107) mmol/L Carbon Dioxide 25 (21-32) mmol/L Anion Gap 16.2 H (7-13) mEq/L BUN 13 (7-18) mg/dL Creatinine 1.00 (0.70-1.30) mg/dL Est Cr Clr Drug Dosing 87.39 mL/min Estimated GFR (MDRD) > 60 BUN/Creatinine Ratio 13.0 (No establ ref range) Glucose 268 H (70-99) mg/dL Lactic Acid 0.7 (0.4-2.0) mmol/L Calcium 8.2 L (8.5-10.1) mg/dL Magnesium 1.9 (1.8-2.4) mg/dL Total Bilirubin 0.5 (0.2-1.0) mg/dL AST 17 (15-37) U/L ALT 31 (16-63) U/L Alkaline Phosphatase 104 (46-116) U/L Troponin I High Sens 4 (<=76) pg/mL B-Natriuretic Peptide 7 (0-100) pg/ml Total Protein 7.0 (6.4-8.2) g/dL Albumin 3.8 (3.4-5.0) g/dL Globulin 3.2 Albumin/Globulin Ratio 1.2 Amylase 29 (25-115) U/L Lipase 53 L (73-393) U/L Influenza Type A RNA (NEGATIVE) Influenza Type B RNA (NEGATIVE) SARS-CoV-2 RNA (LIV) (NEGATIVE) 07/23/21 07/23/21 07/23/21 Range/Units 01:40 FAC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 01:52 FAC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 03:10 WBC (5.0-10.0) 10^3/uL RBC (4.6-6.2) 10^6/uL Hgb (14.0-18.0) g/dL Hct (40.0-54.0) % MCV (80-100) fL MCH (27.0-34.0) pg MCHC (33.0-35.0) g/dL Plt Count (150-450) 10^3/uL Neut % (Auto) (42.2-75.2) % Lymph % (Auto) (20.5-50.1) % [place] % (Auto) (2-8) % Eos % (Auto) (1.0-3.0) % Baso % (Auto) (0.0-1.0) % D-Dimer, Quantitative 233 (0-400) ng/mL Sodium (136-145) mmol/L Potassium (3.5-5.1) mmol/L Chloride (98-107) mmol/L Carbon Dioxide (21-32) mmol/L Anion Gap (7-13) mEq/L BUN (7-18) mg/dL Creatinine (0.70-1.30) mg/dL Est Cr Clr Drug Dosing mL/min Estimated GFR (MDRD) BUN/Creatinine Ratio (No establ ref range) Glucose (70-99) mg/dL Lactic Acid (0.4-2.0) mmol/L Calcium (8.5-10.1) mg/dL Magnesium (1.8-2.4) mg/dL Total Bilirubin (0.2-1.0) mg/dL AST (15-37) U/L ALT (16-63) U/L Alkaline Phosphatase (46-116) U/L Troponin I High Sens 6 (<=76) pg/mL B-Natriuretic Peptide (0-100) pg/ml Total Protein (6.4-8.2) g/dL Albumin (3.4-5.0) g/dL Globulin Albumin/Globulin Ratio Amylase (25-115) U/L Lipase (73-393) U/L Influenza Type A RNA Negative (NEGATIVE) Influenza Type B RNA Negative (NEGATIVE) SARS-CoV-2 RNA (LIV) Positive H (NEGATIVE) Meds: Medications Discontinued Medications Generic Name Dose Route Start Last Admin Trade Name Valerio PRN Reason Stop Dose Admin Acetaminophen 650 mg 07/23/21 01:33 [employer]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 07/23/21 01:49 CDT Acetaminophen 325 Mg Tab PO 07/23/21 01:34 [employer]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 650 mg NOW ONE Administration Sodium Chloride 1,000 mls @ 200 mls/hr 07/23/21 01:42 [employer]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 07/23/21 01:49 CDT Normal Saline IV 07/23/21 06:41 200 mls/hr .BOLUS ONE Administration Departure - Departure Time of Disposition: 03:40 Disposition: Home, Self-Care 01 Condition: Good Clinical Impression: COVID URI (upper respiratory infection) Qualifiers: URI type: unspecified URI Qualified Code(s): J06.9 - Acute upper respiratory infection, unspecified - Discharge Information *PRESCRIPTION DRUG MONITORING PROGRAM REVIEWED*: No *COPY OF PRESCRIPTION DRUG MONITORING REPORT IN PATIENT DANIELLE: No Instructions: COVID-19 Vaccine Information, Symptoms of COVID-19 - CDC (11/07/2020) Forms: ED Department Discharge Additional Instructions: rest diet as tolerated encourage fluids tylenol 500mg every 4 hours sa needed for fever / discomfort quarantine x10 days follow up if breathing difficulties unable to tolerate fluids Sepsis Event Note (ED) - Evaluation Sepsis Screening Result: No Definite Risk - My Orders Last 24 Hours: My Active Orders 07/23/21 01:40 CULTURE BLOOD [BC] Stat - Assessment/Plan Last 24 Hours: My Active Orders 07/23/21 01:40 CULTURE BLOOD [BC] Stat
== END 2021-07-23 04:02 | disposition home or self-care (01) ==
LOC: DL.ED 01:19
DX: U07.1 COVID-19 (principal); J06.9 Acute upper respiratory infection, unspecified; I25.10 Atherosclerotic heart disease of native coronary artery without angina pectoris; E78.00 Pure hypercholesterolemia, unspecified; I10 Essential (primary) hypertension; I25.2 Old myocardial infarction; K21.9 Gastro-esophageal reflux disease without esophagitis; E03.9 Hypothyroidism, unspecified; E11.9 Type 2 diabetes mellitus without complications; J44.9 Chronic obstructive pulmonary disease, unspecified; Z88.8 Allergy status to other drugs, medicaments and biological substances; Z88.0 Allergy status to penicillin; Z79.82 Long term (current) use of aspirin; Z79.899 Other long term (current) drug therapy; Z79.4 Long term (current) use of insulin
CPT/HCPCS: 0240U; 36415; 71045; 80053; 82150; 83605; 83690; 83735; 83880; 84484; 85025; 85379; 87040; 93005; 99285; A9270; J7030

== ENCOUNTER 2022-04-16 15:22 | Emergency (ER) | payer BC, MEDICAID ==
[2022-04-16 15:58] VITALS: BP 123/74; PULSE 78
== END 2022-04-16 16:20 | disposition home or self-care (01) ==
LOC: DL.ED 15:22
DX: M23.91 Unspecified internal derangement of right knee (principal); I25.10 Atherosclerotic heart disease of native coronary artery without angina pectoris; I10 Essential (primary) hypertension; I25.2 Old myocardial infarction; E66.9 Obesity, unspecified; Z68.41 Body mass index [BMI] 40.0-44.9, adult; Z88.1 Allergy status to other antibiotic agents; Z88.0 Allergy status to penicillin; Z88.8 Allergy status to other drugs, medicaments and biological substances; Z79.899 Other long term (current) drug therapy; Z79.82 Long term (current) use of aspirin; Z79.4 Long term (current) use of insulin; Z79.84 Long term (current) use of oral hypoglycemic drugs; Z86.16 Personal history of COVID-19
CPT/HCPCS: 73562-RT; 99283; 99284

== ENCOUNTER 2022-05-10 14:23 | Emergency (ER) | payer MEDICAID ==
[2022-05-10] MEDS ORDERED: Sodium Chloride 0.9% 10 ML Syringe FLUSH PRN (14:28)
[2022-05-10 14:37] VITALS: BP 146/85; PULSE 96
[2022-05-10 15:02] LABS: ANION GAP 14.2 mEq/L (7-13)
== END 2022-05-10 16:05 | disposition home or self-care (01) ==
LOC: DL.ED 14:23
DX: R07.9 Chest pain, unspecified (principal); I25.10 Atherosclerotic heart disease of native coronary artery without angina pectoris; E78.00 Pure hypercholesterolemia, unspecified; I10 Essential (primary) hypertension; I25.2 Old myocardial infarction; E11.9 Type 2 diabetes mellitus without complications; E66.9 Obesity, unspecified; Z86.16 Personal history of COVID-19; Z88.1 Allergy status to other antibiotic agents; Z88.8 Allergy status to other drugs, medicaments and biological substances; Z88.0 Allergy status to penicillin; Z79.82 Long term (current) use of aspirin; Z79.4 Long term (current) use of insulin; Z79.899 Other long term (current) drug therapy; Z20.822 Contact with and (suspected) exposure to COVID-19; Z68.41 Body mass index [BMI] 40.0-44.9, adult
CPT/HCPCS: 36415; 71045; 80053; 84484; 85025; 85610; 85730; 93005; 93010; 99284; 99285; U0002

== ENCOUNTER 2022-12-19 10:35 | Emergency (ER) | payer MEDICAID ==
[2022-12-19 10:54] VITALS: BP 129/77; PULSE 103
[2022-12-19] MEDS ORDERED: Sodium Chloride 0.9% 10 ML Syringe FLUSH PRN (10:56)
[2022-12-19 11:30] LABS: ANION GAP 15.4 mEq/L (7-13)
[2022-12-19 11:44] LABS: PTT,PARTIAL THROMBOPLSTIN TIME 26.5 SEC (22.0-34.0)
[2022-12-19] MEDS ORDERED: Propranolol 20 MG Tab PO ONE (11:48)
== END 2022-12-19 13:36 | disposition home or self-care (01) ==
LOC: DL.ED 10:35
DX: R07.89 Other chest pain (principal); R00.2 Palpitations; K21.9 Gastro-esophageal reflux disease without esophagitis; E11.9 Type 2 diabetes mellitus without complications; I25.10 Atherosclerotic heart disease of native coronary artery without angina pectoris; J44.9 Chronic obstructive pulmonary disease, unspecified; E78.00 Pure hypercholesterolemia, unspecified; E03.9 Hypothyroidism, unspecified; I25.2 Old myocardial infarction; E66.9 Obesity, unspecified; Z88.1 Allergy status to other antibiotic agents; Z88.0 Allergy status to penicillin; Z88.8 Allergy status to other drugs, medicaments and biological substances; Z79.82 Long term (current) use of aspirin; Z79.4 Long term (current) use of insulin; Z79.899 Other long term (current) drug therapy; Z77.22 Contact with and (suspected) exposure to environmental tobacco smoke (acute) (chronic); Z68.41 Body mass index [BMI] 40.0-44.9, adult
CPT/HCPCS: 36415; 71045; 80053; 83735; 83880; 84443; 84484; 85025; 85610; 85730; 93005; 99285; A9270-GY; J3490

== ENCOUNTER 2022-12-31 07:28 | Day surgery (SDC) | payer MEDICAID ==
[~2022-12-31 07:28] MED LIST changes: -Dextrose 5%-0.45% NaCl 1,000 ML IV SCH; -Sodium Chloride 0.9% 10 ML Syringe FLUSH PRN
[2022-12-31] MEDS ORDERED: fentaNYL 100 MCG/2 ML SDV IV ONE ×3 (07:29→08:18)
[2022-12-31] MEDS ORDERED: Midazolam 1 MG/ML 2 ML SDV IV ONE ×3 (07:29→08:20)
[2022-12-31] MEDS ORDERED: Dextrose 5%-0.45% NaCl 1,000 ML IV SCH (07:30)
[2022-12-31 09:29] VITALS: BP 115/62; PULSE 69
== END 2022-12-31 09:42 | disposition home or self-care (01) ==
LOC: DL.ENDO 07:28
PROVIDERS: ATTEND Internal Medicine Gastroenterology
DX: K29.50 Unspecified chronic gastritis without bleeding (principal); K31.A0 Gastric intestinal metaplasia, unspecified; D64.9 Anemia, unspecified; E11.9 Type 2 diabetes mellitus without complications; G47.33 Obstructive sleep apnea (adult) (pediatric); I10 Essential (primary) hypertension; J30.9 Allergic rhinitis, unspecified; F32.A Depression, unspecified; I25.10 Atherosclerotic heart disease of native coronary artery without angina pectoris; Z88.0 Allergy status to penicillin; E66.09 Other obesity due to excess calories; Z88.8 Allergy status to other drugs, medicaments and biological substances; Z90.89 Acquired absence of other organs; Z98.890 Other specified postprocedural states; Z68.41 Body mass index [BMI] 40.0-44.9, adult
CPT/HCPCS: 87077; J2250; J3010; J7042

== ENCOUNTER 2023-05-23 20:38 | Emergency (ER) | payer MEDICAID ==
[2023-05-23] MEDS ORDERED: Sodium Chloride 0.9% 10 ML Syringe FLUSH PRN (21:35)
[2023-05-23 21:39] VITALS: BP 135/81; PULSE 86
[2023-05-23] MEDS ORDERED: Aspirin 81 MG Tab.Chew PO ONE (21:40)
[2023-05-23 21:45] LABS: HEMATOCRIT 42.2 % (40.0-54.0); HEMOGLOBIN 14.2 g/dL (14.0-18.0); MEAN CORPUSCULAR HEMOGLOBIN 28.7 pg (27.0-34.0); MEAN CORPUSCULAR HGB CONC 33.6 g/dL (33.0-35.0); MEAN CORPUSCULAR VOLUME 85.3 fL (80-100); PLATELET COUNT,PLT 281 10^3/uL (150-450); RED BLOOD CELL COUNT 4.95 10^6/uL (4.6-6.2); WHITE BLOOD CELL COUNT,WBC 9.5 10^3/uL (5.0-10.0)
[2023-05-23 21:48] LABS: BASOPHILS PERCENT AUTO 0.5 % (0.0-1.0); LYMPHOCYTES PERCENT AUTO 15.4 % (20.5-50.1); MONOCYTES PERCENT AUTO 3.5 % (2-8); NEUTROPHILS PERCENT AUTO 80.6 % (42.2-75.2)
[2023-05-23 22:02] LABS: LYMPHOCYTES PERCENT MAN 16 % (20-50); MONOCYTES PERCENT MAN 1 % (2-8); SEG NEUTROPHILS PERCENT MAN 83 % (42-75)
[2023-05-23 22:03] LABS: A/G RATIO 0.9; ALBUMIN 3.7 g/dL (3.4-5.0); ANION GAP 14.8 mEq/L (7-13); BILIRUBIN TOTAL 0.6 mg/dL (0.2-1.0); BUN/CREATININE RATIO 9.4 (No establ ref range); CALCIUM 8.6 mg/dL (8.5-10.1); CREATININE 0.96 mg/dL (0.70-1.30); EST CRCL DRUG DOSING (CG) 88.99 mL/min; POTASSIUM,K 4.8 mmol/L (3.5-5.1); PROTEIN TOTAL,TP 7.6 g/dL (6.4-8.2)
== END 2023-05-23 22:27 | disposition home or self-care (01) ==
LOC: DL.ED 20:38
DX: J98.9 Respiratory disorder, unspecified (principal); B97.89 Other viral agents as the cause of diseases classified elsewhere; J44.9 Chronic obstructive pulmonary disease, unspecified; I25.2 Old myocardial infarction; E11.9 Type 2 diabetes mellitus without complications; I25.10 Atherosclerotic heart disease of native coronary artery without angina pectoris; E78.00 Pure hypercholesterolemia, unspecified; E66.9 Obesity, unspecified; Z68.41 Body mass index [BMI] 40.0-44.9, adult; Z86.16 Personal history of COVID-19; Z88.1 Allergy status to other antibiotic agents; Z88.8 Allergy status to other drugs, medicaments and biological substances; Z79.82 Long term (current) use of aspirin; Z79.4 Long term (current) use of insulin; Z79.84 Long term (current) use of oral hypoglycemic drugs; Z79.899 Other long term (current) drug therapy
CPT/HCPCS: 36415; 80053; 84484; 85025; 85379; 93005; 99285; A9270

== ENCOUNTER 2023-07-13 17:43 | Emergency (ER) | payer MEDICAID ==
[2023-07-13] MEDS ORDERED: Meclizine 12.5 MG Tab PO ONE (17:44)
[2023-07-13] MEDS ORDERED: Meclizine 12.5 MG Tab ONE (18:03)
[2023-07-13 18:09] VITALS: BP 136/72; PULSE 89
== END 2023-07-13 18:09 | disposition home or self-care (01) ==
LOC: DL.ED 17:43
DX: R42 Dizziness and giddiness (principal); I10 Essential (primary) hypertension; I25.2 Old myocardial infarction; E66.9 Obesity, unspecified; E11.9 Type 2 diabetes mellitus without complications; J45.909 Unspecified asthma, uncomplicated; J44.9 Chronic obstructive pulmonary disease, unspecified; Z88.1 Allergy status to other antibiotic agents; Z88.0 Allergy status to penicillin; Z88.8 Allergy status to other drugs, medicaments and biological substances; Z79.82 Long term (current) use of aspirin; Z79.899 Other long term (current) drug therapy; Z79.4 Long term (current) use of insulin
CPT/HCPCS: 99283